=== PATIENT | male | born 1950 | race Caucasian/White ===

== ENCOUNTER 2021-05-28 11:28 | Inpatient (IN) ==
[2021-05-28] MEDS ORDERED: ASPIRIN CHEW 324 MG ONE (11:34)
--- NOTE | 2021-05-28 11:42 | Emergency Department Note ---
History of Present Illness General Chief complaint: Heart Alert History of Present Illness 71-year-old male presents to the ED with a chief complaint of a syncopal episode that occurred around 9:45 AM today. The patient is a diabetic and takes Metformin. He also has history of high blood pressure and takes metoprolol and losartan. The patient states that he felt hungry this morning and was walking to the kitchen to get something to eat. He felt a little weird and then he was on the floor. He lives with his . He apparently had a syncopal episode. Some of the history was obtained from the . The states that she heard a loud noise and came out and found him on the tile floor. He was dazed and a little confused initially. There was no seizure activity. EMS was called. The twelve-lead EKG for EMS initially done showed some peaking T waves in the inferior leads. As the patient was refusing transport, the patient, according to EMS did not look well and seemed ashen diaphoretic. For this reason they state on scene and try to convince him to come to the hospital. He was not havi ng any chest pains or shortness of breath at any point. The patient had a second twelve-lead EKG by EMS about 1 hour after the first that showed inferior wall NM with ST elevations inferiorly and T wave inversions in V1 and V2. The patient then was convinced to come to the hospital for evaluation. Other than the patient feeling "washed out", he has no other complaints. No chest pains, shortness of breath, back pains, arm pains other than some chronic shoulder pain. Denies any pain related to his syncope/fall but did have palpable tenderness to the posterior aspect of his head. Home Medications Medication Instructions Recorded Confirmed Type METOPROLOL SUCCINATE (TOPROL XL) 200 mg PO QAM #0 11/08/11 History VALSARTAN/HCTZ (Diovan Hct 1 tab PO QAM #0 11/08/11 History 160/25MG Tab) Multiple Vitamins W/ Minerals 1 tab PO QAM #0 03/10/16 History (Multi Adult Gummies) Allergies Allergy/AdvReac Type Severity Reaction Status Date / Time No Known Allergies Allergy Unverified 03/20/16 06:36 Past Med/Surg History Medical History (Updated 05/28/21 @ 12:45 by Anuel Weinstein DO) Diabetes type 2, controlled Hypertension Social History Smoking Status: Never smoker Hx Substance Use: No Preferred Language: Belizean Feels Safe at Home: Yes Review of Systems A total of 10 systems reviewed and were otherwise negative Physical Exam Vital Signs Vital Signs - 24 hr 05/28/21 11:12 Temperature 36.5 C Temperature Source Oral Pulse Rate 70 Pulse Rhythm Regular Pulse Strength Normal Respiratory Rate 16 Respiratory Effort / Characteristics Non-Labored Respiratory Depth Normal Blood Pressure 141/92 H Blood Pressure Mean 108 Pulse Oximetry 98 Oxygen Delivery Method Room Air Sepsis Recent Fever Within 48 Hours No Sepsis New/Unexplained Change in Mental Status N/A Sepsis Action Taken by Nursing No Action Required CONSTITUTIONAL/VITAL SIGNS: Reviewed / noted above. GENERAL: Non-toxic in appearance. INTEGUMENTARY: Warm, dry, and [place]. HEAD: Normocephalic with the exception of a hematoma to the occipital area. This is also somewhat tender on exam. No bleeding or lacerations EYES: without scleral icterus or trauma. ENT/OROPHARYNX: clear and moist. LYMPHADENOPATHY/NECK: Is supple without lymphadenopathy or meningismus. RESPIRATORY: Clear to auscultation bilaterally. No increased work of breathing. CARDIOVASCULAR: Regular rate and rhythm. GI/ABDOMEN: Soft and nontender. No organomegaly or pulsatile mass. EXTREMITIES: Warm and well perfused. BACK: No CVA tenderness. NEUROLOGICAL: Intact without focal deficits. PSYCHIATRIC: normal affect. MUSCULOSKELETAL: Normally developed with good muscle tone. TRIAGE NURSING DOCUMENTATION REVIEWED. Course Administered Medications Discontinued Medications Aspirin (Aspirin Chew 324 Mg) Confirm Administered Dose 324 mg .ROUTE .STK-MED ONE Stop: 05/28/21 11:35 Last Admin: 05/28/21 11:37 Dose: 324 mg Documented by: [id number] Heparin Sodium (Porcine) (Heparin Sod (Porcine) 1000 Unit/Ml) 5,000 units IV NOW ONE Stop: 05/28/21 11:46 Last Admin: 05/28/21 11:46 Dose: 5,000 units Documented by: [id number] Cosigned by: [id number] Ticagrelor (Ticagrelor 90 Mg Tab) 180 mg PO NOW ONE Stop: 05/28/21 11:46 Last Admin: 05/28/21 11:46 Dose: 180 mg Documented by: [id number] Critical Care Time Critical Care Time: Yes Total Critical Care Time: 30 I have personally spent 30 minutes of critical care time in the direct management of this patient. This includes bedside care, interpretation of diagnostic studies, and testing, discussion with consultants, patient, and family members, and other required patient management activities. This 30 minutes is in excess of all separately billable procedures. Medical Decision Making Differential Diagnosis The differential that was considered includes acute myocardial infarction, acute coronary syndrome, myocarditis, pericarditis, pericardial effusions /tamponade, esophageal perforation, thoracic aortic dissection, pulmonary embolism, pneumonia, pneumothorax, pancreatitis, shingles, acute cholecystitis, perforated abdominal viscus. Medical Records Attestation: I reviewed the patient's medical records. Home Medications Current Medication List: was personally reviewed by me Laboratory Data Attestation: I reviewed the patient's lab results. Result diagrams: 05/28/21 11:33 05/28/21 11:33 Lab Results 05/28/21 05/28/21 05/28/21 Range/Units 11:33 11:33 11:37 WBC 8.57 (4.8-10.8) K/uL RBC 5.46 (4.7-6.1) M/uL Hgb 16.1 (14.0-18.0) g/dL POC Hgb 17.0 (14.0-18.0) g/dl Hct 49.9 (42-52) % POC Hct 50 (42-52) % MCV 91.4 (80-100) fL MCH 29.5 (25-34) pg MCHC 32.3 (32-36) g/dL RDW Std Deviation 48.5 H (36.4-46.3) fL RDW Coeff of Norberto 14.5 (11.5-14.5) % Plt Count 173 (130-400) K/uL MPV 11.0 H (7.4-10.4) fL Immature Gran % (Auto) 0.2 % Neut % (Auto) 83.1 % Lymph % (Auto) 9.5 % Power % (Auto) 4.6 % Eos % (Auto) 2.2 % Baso % (Auto) 0.4 % Neut # (Auto) 7.13 H (1.4-6.5) K/uL Lymph # (Auto) 0.81 L (1.2-3.4) K/uL Power # (Auto) 0.39 (0.11-0.59) K/uL Eos # (Auto) 0.19 (0-0.5) K/uL Baso # (Auto) 0.03 (0-0.2) K/uL Immature Gran # (Auto) 0.02 (0.00-0.02) K/uL POC Sodium 142 (135-144) mmol/L Sodium 139 (136-145) mmol/L POC Potassium 4.6 (3.3-5.0) mmol/L Potassium 4.6 (3.5-5.1) mmol/L POC Chloride 106 (101-112) mmol/L Chloride 107 (98-107) mmol/L Carbon Dioxide 25 (21-32) mmol/L POC Total CO2 24 (24-31) mmol/L Anion Gap 7 (3-11) POC Anion Gap 17.0 (16-25) mmol/L POC BUN 40 H (7-18) mg/dl BUN 39 H (6-23) mg/dl Creatinine 1.48 H (0.6-1.4) mg/dl POC Creatinine 1.4 H (0.6-1.3) mg/dl Est Cr Clr Drug Dosing 63.1 ml/min Est GFR ( Amer) 54.8 ml/min Est GFR (Non-Af Amer) 47.3 ml/min BUN/Creatinine Ratio 26.4 H (10-20) Glucose 213 H (70-99(Fasting)) mg/dl POC Glucose (other) 207 H (70-99) mg/dl Calcium 9.0 (8.5-10.1) mg/dl POC Ioniz Calcium Italo 1.21 (1.12-1.32) mmol/l Total Bilirubin 0.7 (0.2-1.0) mg/dl AST 23 (13-39) U/L ALT 16 (7-52) U/L Alkaline Phosphatase 70 (34-104) U/L Troponin I 0.98 H* (0-0.04) ng/ml Total Protein 7.1 (6.0-8.3) gm/dl Albumin 4.1 (3.4-5.0) gm/dl Globulin 3.0 (2.5-4.0) gm/dl Albumin/Globulin Ratio 1.4 (0.9-2) Lipase 30 (11-82) U/L SARS-CoV-2, RNA, NAAT (NEGATIVE) 05/28/21 Range/Units 11:38 WBC (4.8-10.8) K/uL RBC (4.7-6.1) M/uL Hgb (14.0-18.0) g/dL POC Hgb (14.0-18.0) g/dl Hct (42-52) % POC Hct (42-52) % MCV (80-100) fL MCH (25-34) pg MCHC (32-36) g/dL RDW Std Deviation (36.4-46.3) fL RDW Coeff of Norberto (11.5-14.5) % Plt Count (130-400) K/uL MPV (7.4-10.4) fL Immature Gran % (Auto) % Neut % (Auto) % Lymph % (Auto) % Power % (Auto) % Eos % (Auto) % Baso % (Auto) % Neut # (Auto) (1.4-6.5) K/uL Lymph # (Auto) (1.2-3.4) K/uL Power # (Auto) (0.11-0.59) K/uL Eos # (Auto) (0-0.5) K/uL Baso # (Auto) (0-0.2) K/uL Immature Gran # (Auto) (0.00-0.02) K/uL POC Sodium (135-144) mmol/L Sodium (136-145) mmol/L POC Potassium (3.3-5.0) mmol/L Potassium (3.5-5.1) mmol/L POC Chloride (101-112) mmol/L Chloride (98-107) mmol/L Carbon Dioxide (21-32) mmol/L POC Total CO2 (24-31) mmol/L Anion Gap (3-11) POC Anion Gap (16-25) mmol/L POC BUN (7-18) mg/dl BUN (6-23) mg/dl Creatinine (0.6-1.4) mg/dl POC Creatinine (0.6-1.3) mg/dl Est Cr Clr Drug Dosing ml/min Est GFR ( Amer) ml/min Est GFR (Non-Af Amer) ml/min BUN/Creatinine Ratio (10-20) Glucose (70-99(Fasting)) mg/dl POC Glucose (other) (70-99) mg/dl Calcium (8.5-10.1) mg/dl POC Ioniz Calcium Italo (1.12-1.32) mmol/l Total Bilirubin (0.2-1.0) mg/dl AST (13-39) U/L ALT (7-52) U/L Alkaline Phosphatase (34-104) U/L Troponin I (0-0.04) ng/ml Total Protein (6.0-8.3) gm/dl Albumin (3.4-5.0) gm/dl Globulin (2.5-4.0) gm/dl Albumin/Globulin Ratio (0.9-2) Lipase (11-82) U/L SARS-CoV-2, RNA, NAAT NEGATIVE (NEGATIVE) Imaging Data Radiologist's Impression: Head CT 05/28/21 11:43 CT head/brain wo con CLINICAL HISTORY: 71 years-old Male with head injury. Acute syncope with head injury TECHNIQUE: Multiple axial CT images of the head were obtained without contrast. A dose lowering technique was utilized adhering to the principles of ALARA. CT DOSE: 614.27 mGy.cm COMPARISON: None. FINDINGS: No acute intracranial hemorrhage, midline shift, intracranial mass, hydrocephalus, territorial ischemia or abnormal extra-axial collection. Mild involutional changes. Mild white matter hypodensities suggest chronic microvascular ischemic disease. No acute calvarial fracture identified. Small contusion of the right parieto- occipital scalp. 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 The paranasal sinuses, mastoid air cells, and middle ear cavities are clear. IMPRESSION: 1. No acute intracranial abnormality or calvarial fracture. 2. Small right parieto-occipital scalp hematoma. 3. Scattered foci of subcutaneous emphysema within the scalp scalp may be iatrogenic from air within the IV catheter versus penetrating trauma. ACT 112: Negative or not required by law. The above report was generated using voice recognition software. It may contain grammatical, syntax or spelling errors. Electronically signed by: Chris Falcon M.D. 05/28/2021 12:04 PM ECG Data Attestation: I personally reviewed and interpreted this ECG as follows: Additional Comments: Twelve-lead EKG: Per my interpretation shows a sinus rhythm at a rate of 70. ST elevations inferiorly with T wave inversions anteriorly consistent with an acute inferior wall NM. Head Trauma GCS Score: 15 MDM Narrative 71-year-old male presents after syncopal episode this morning around 9:45 AM for which she was found on the tile floor by his a little dazed. Initial twelve-lead EKG by EMS showed some peaking of T waves inferiorly but no clear acute NM. Blood sugar was 135 on scene. He does have a history of type 2 diabetes and high blood pressure. A second EKG about an hour after the first on scene showed acute inferior wall NM. The patient did not at any point have any chest pains or shortness of breath. He was transported to the hospital for further evaluation and care. Here his twelve-lead EKG shows an acute inferior wall NM. CBC was unremarkable. CT scan of the brain did not show any intracranial hemorrhage. There is a small hematoma. There is also scattered focus of subcutaneous emphysema within the scalp that is likely iatrogenic. There is no penetrating trauma to the head on exam or history. The chemistry panel shows a BUN of 39 creatinine of 1.48. Glucose is 213. Troponin is elevated at 0.98. Covid test was negative. A heart alert was called about 15 minutes prior to the patient's arrival. The cardiac cath team met the patient in the emergency department. He was not spoken directly to the Musical Instrument Mechanic as a CT scan of the head was indicated due to his hematoma in the back of the head and his trauma. After the CT scan he was taken directly to the Musical Instrument Mechanic. Impression & Plan Acute NM, inferior wall, Syncope, Contusion of head Discharge Plan Visit Data Chief Complaint: Heart Alert ED Provider: Anuel Weinstein Discharge Problem: Acute NM, inferior wall, Syncope, Contusion of head Patient Disposition: Admitted As Inpatient
[2021-05-28 11:45] LABS: Basophils # (auto) 0.03 K/uL (0-0.2); Basophils % (auto) 0.4 %; Eosinophils # (auto) 0.19 K/uL (0-0.5); Eosinophils % (auto) 2.2 %; Hematocrit (blood only) 49.9 % (42-52); Hemoglobin 16.1 g/dL (14.0-18.0); Immature Granulocytes # (auto) 0.02 K/uL (0.00-0.02); Immature Granulocytes % (auto) 0.2 %; Lymphocytes # (auto) 0.81 K/uL (1.2-3.4); Lymphocytes % (auto) 9.5 %; Mean Corpuscular Hemoglobin 29.5 pg (25-34); Mean Corpuscular Hgb Conc 32.3 g/dL (32-36); Mean Corpuscular Volume 91.4 fL (80-100); Monocytes # (auto) 0.39 K/uL (0.11-0.59); Monocytes % (auto) 4.6 %; Neutrophils # (auto) 7.13 K/uL (1.4-6.5); Neutrophils % (auto) 83.1 %; Platelet Count 173 K/uL (130-400); RDW Coefficient of Variation 14.5 % (11.5-14.5); RDW Standard Deviation 48.5 fL (36.4-46.3); Red Blood Count 5.46 M/uL (4.7-6.1); White Blood Count 8.57 K/uL (4.8-10.8)
[2021-05-28] MEDS ORDERED: TICAGRELOR 90 MG TAB PO ONE (11:45)
[2021-05-28] MEDS ORDERED: HEPARIN SOD (PORCINE) 1000 UNIT/ML IV ONE (11:45)
[2021-05-28 11:49] LABS: iSTAT Creatinine 1.4 mg/dl (0.6-1.3); iSTAT Ionized Calcium 1.21 mmol/l (1.12-1.32); iSTAT Potassium 4.6 mmol/L (3.3-5.0)
--- NOTE | 2021-05-28 11:58 | Pre Anesthesia Assessment ---
Date of Service May 28, 2021 Pre Sedation Assessment Vital Signs Temp Pulse Resp BP Pulse Ox 05/28/21 11:12 97.7 F 70 16 141/92 H 98 Cardiovascular RRR, no murmur, no edema Respiratory normal respiratory effort, lungs clear to auscultation Pre-Sedation Airway Assessment Smoking Status: Never smoker Hx Sleep Apnea: No Hx Difficult Intubation: No Short, Thick Neck: No Thyromental Distance: > or= 3.5 Finger Breadths Oral Cavity: + WNL Mallampati Class: III ASA: ASA3 Procedure Planning Contraindications for Sedation: none Current Medications Reviewed: Yes Notes The planned sedation has been discussed with the patient. Informed Consent was obtained. I have identified the patient, determined the appropriateness of sedation and have assessed the patient immediately prior to the procedure. All medicine(s) and interventions are by my order.
--- NOTE | 2021-05-28 12:06 | Cardiology Consultation ---
Date of Consultation May 28, 2021 Assessment & Plan (1) Syncope: Patient with dynamic inferolateral ST elevations on ECG following syncopal episode earlier this morning. He remains chest pain-free but with patient's risk factors and unexplained syncope feel we should proceed with cardiac catheterization. Discussed risks, benefits, alternatives of procedure and patient willing to proceed. Further recommendations pending findings of coronary angiography. History of Present Illness Attending Physician: Uziel Roque MD History of Present Illness 71-year-old man here after syncopal episode and ECG concerning for acute ND. Patient seen emergently in the ED after heart alert activated en route No prior cardiac history. Reports history of type 2 diabetes complicated by peripheral neuropathy and hypertension. No other active medical problems. Feeling normal the preceding few days. This morning woke up feeling fine, eventually walked to kitchen where progressively felt more lightheaded before unwitnessed syncopal spell. Denies any preceding chest pain, palpitations or shortness of breath. No symptoms after awaking. EMS eventually called and on initial ECG had sinus rhythm with no diagnostic ST changes. Subsequent EKG almost an hour later showed inferior ST elevations. Remained chest pain-free. On arrival to ED chest pain-free, hemodynamically stable, heart rate in the 70s. ECG again showed sinus rhythm with ST elevations in 2, 3, aVF as well as V4 through V6. Allergies Allergy/AdvReac Type Severity Reaction Status Date / Time No Known Allergies Allergy Unverified 03/20/16 06:36 Home Medications Medication Instructions Recorded Confirmed Type METOPROLOL SUCCINATE (TOPROL XL) 200 mg PO QAM #0 11/08/11 History VALSARTAN/HCTZ (Diovan Hct 1 tab PO QAM #0 11/08/11 History 160/25MG Tab) Multiple Vitamins W/ Minerals 1 tab PO QAM #0 03/10/16 History (Multi Adult Gummies) Patient History Medical History (Updated 05/28/21 @ 12:45 by Anuel Weinstein DO) Diabetes type 2, controlled Hypertension Social History Smoking Status: Never smoker Hx Substance Use: No Preferred Language: Gambian Feels Safe at Home: Yes Review of Systems Review of Systems: All systems reviewed & are unremarkable except as noted in HPI & below Physical Exam Physical Exam: General: Comfortable HEENT: Sclerae anicteric Lungs: Clear to auscultation bilaterally Cardiac: Regular rate and rhythm Vascular: 2+ radial, DP pulses. Abdomen: Soft, nontender Extremities: Well perfused, no peripheral edema Psych: Alert orient x3, normal affect and mood Results & Data ([facility]) Vital Signs (Past 12 Hours) Vital Signs Temp Pulse Resp BP Pulse Ox 05/28/21 11:12 97.7 F 70 16 141/92 H 98 PG Care Time/CCT Total # of Minutes Spent Total Time Spent with Patient: Total time spent is greater than 50% in coordination of care (as documented) at patient's floor/unit and/or counseling patient: Coding Level of Care Code 72134 Initial Inpt Care Lvl 3 Diagnoses Syncope R55
--- NOTE | 2021-05-28 12:06 | CT Scan Report ---
CT head/brain wo con CLINICAL HISTORY: 71 years-old Male with head injury. Acute syncope with head injury TECHNIQUE: Multiple axial CT images of the head were obtained without contrast. A dose lowering tech nique was utilized adhering to the principles of ALARA. CT DOSE: 614.27 mGy.cm COMPARISON: None. FINDINGS: No acute intracranial hemorrhage, midline shift, intracranial mass, hydrocephalus, territorial ischem ia or abnormal extra-axial collection. Mild involutional changes. Mild white matter hypodensities sug gest chronic microvascular ischemic disease. No acute calvarial fracture identified. Small contusion of the right parieto-occipital scalp. Scatter ed foci of subcutaneous emphysema noted within the frontal and bilateral temporal scalp distributions and right learning designer space. The paranasal sinuses, mastoid air cells, and middle ear cavities are c lear. IMPRESSION: 1. No acute intracranial abnormality or calvarial fracture. 2. Small right parieto-occipital scalp hematoma. 3. Scattered foci of subcutaneous emphysema within the scalp scalp may be iatrogenic from air within the IV catheter versus penetrating trauma. ACT 112: Negative or not required by law. The above report was generated using voice recognition software. It may contain grammatical, syntax o r spelling errors. Electronically signed by: Chris Falcon M.D. 05/28/2021 12:04 PM
[2021-05-28 12:14] LABS: Albumin Globulin Ratio 1.4 (0.9-2); Albumin Level 4.1 gm/dl (3.4-5.0); BUN Creatinine Ratio 26.4 (10-20); Bilirubin,Total 0.7 mg/dl (0.2-1.0); Creatinine Clr Calc Pharmacy 63.1 ml/min; Est GFR (African American) 54.8 ml/min; Est GFR (Non-African American) 47.3 ml/min; Potassium 4.6 mmol/L (3.5-5.1); Total Protein 7.1 gm/dl (6.0-8.3)
[2021-05-28 12:15] LABS: Troponin I 0.98 ng/ml (0-0.04)
[2021-05-28] MEDS ORDERED: ONDANSETRON INJ 2 MG/ML 2 ML VIAL IV PRN (13:00)
[2021-05-28] MEDS ORDERED: ICU PROTOCOL FOR HYPERGLYCEMIA PRN (13:00)
--- NOTE | 2021-05-28 13:17 | Post Anesthesia Assessment ---
Date of Service May 28, 2021 Post Sedation Assessment Vital Signs Temp Pulse Pulse Resp BP BP Pulse Ox 05/28/21 13:05 60 18 119/76 95 05/28/21 12:50 61 18 121/77 95 05/28/21 11:12 97.7 F 70 16 141/92 H 98 Recovery Score Activity: Moves 4 extremities Respiration: Deep Breath/Cough Circulation: +/-20% PreAnes Value Consciousness: Fully Awake Oxygen Saturation: > 92% On Room Air Post Anesthesia Score: 10 Discharge Sedation Level of Care: Fast Track Phase II Post Sedation Plan On clinical assessment, the patient appears to have tolerated the sedation without complications. Patient is recovering as anticipated. Patient will continue to be monitored by nursing and may be discharged when sedation discharge criteria are met per below protocol. Upon Completions of procedure up to 15 minutes continue every 5 minute vital signs and the P.A.R. score; then discharge to a Phase I or Fast Track to Phase II per the following guidelines: * Discharge Patient to appropriate Phase II area if PAR is 8 or greater or return to pre- procedure baseline. The post - procedure orders will be as directed. * If PAR score is less than 8 or not return to pre-procedure baseline then patient will follow Phase I monitoring till PAR is reached for Phase II. The Phase I may be done in procedure room or may call to secure a Phase I area. * If naloxone or flumazenil are used for reversal, hold in Phase I for continued monitoring from when last reversal dose was given for a minimum of 60 minutes or longer pending the nurse and/or physician discretion of patient condition before discharge to Phase II. Please call the Sedation Physician to re-evaluate and complete post-note for discharge to Phase II area. Do NOT discharge from procedure sedation or Phase 1 until post- sedation evaluation note is complete by procedure /sedation MD Sedation Discharge Instructions to be given to the patient at discharge to home.
--- NOTE | 2021-05-28 13:18 | History & Physical Report ---
Date of Service May 28, 2021 Assessment & Plan (1) Acute VT, inferior wall: Plan: Acute inferior STEMI Admitting EKG: NSR. Inferior ST elevation consistent with STEMI Admitting troponin 0 0.98, trended PCI: - 1. Inferolateral STEMI/acute subtotal occlusion of mid RCA 2. Severe non-culprit coronary artery disease -80% diffuse proximal to mid LAD disease. Small distal LAD with 90% stenosis at apex. Small OM2 70% proximal, small to medium OM3 95% proximal. R-PLB2 with 80% proximal stenosis 3. Elevated intracardiac filling pressure 4. Successful PCI of mid to distal RCA with single drug-eluting stent (3.0 x 26 mm [place]; postdilated with 3.5 NC). Metoprolol 25 mg p.o. every 8 hours DAPT, aspirin 81 mg every morning/ticagrelor 90 mg p.o. twice daily Valsartan 80 mg p.o. every morning, hold for USMAN Atorvastatin 80 mg p.o. every morning Covid negative on admission Creatinine 1.48 on admission Potassium 4.6, magnesium pending - TTE pending - Lipid Panel Pending Received 1 dose of IV Lasix for increased LV filling pressures Patient is pending reevaluation of renal function in the morning for potential additional intervention of LAD cardiology following (2) Syncope: Plan: With acute VT, managed as above (3) Contusion of head: Plan: - CT-H: No acute intracranial abnormality or calvarial fracture. Small right parieto-occipital scalp hematoma. Scattered foci of subcutaneous emphysema within the scalp scalp may be iatrogenic from air within the IV catheter versus penetrating trauma. -Clinically without open lesion Follow clinically, no acute intervention (4) Hypertension: Plan: Hypertension Home metoprolol 200 mg p.o. every morning temporarily held Home valsartan/HCTZ 160/25 mg daily held Antihypertensives as above (5) Diabetes type 2, controlled: Plan: Type 2 diabetes mellitus Hemoglobin A1c pending Admitting BSG 207 SSI weight-based: Lantus 12 units twice daily, correction factor 35, carb ratio 11 BSG AC/at bedtime or every 6 hours if n.p.o. Home Metformin held ICU glycemia protocol consult placed Plan: DVT prophylaxis: SCDs Diet: Heart healthy Disposition: Monitoring in ICU as above CODE STATUS: Full code History of Present Illness Primary Care Provider: Clifton Farias MD Eliseo is a 71-year-old male with no prior past medical history, history of type 2 diabetes mellitus, and history of hypertension who was seen in this morning for an episode of syncope and he was found to have a STEMI now status post PCI. Patient had no chest pain at any point, did not have unstable/crescendo angina, and was normal prior to morning of admission. Morning of admission he woke up in bed and had a unwitnessed episode of syncope. On EMS evaluation patient did not have ST changes, repeat EKG in ER showed inferior ST elevations without chest pain. Patient was taken for PCI with intervention as noted below. Discussed with interventional cardiology, recommended for observation in ICU overnight and additional intervention tomorrow renal function permitting. Patient seen at bedside post procedure. He reports he feels well, although notes that he did not have any chest pain or crescendo angina leading to his episode. He had one episode of syncope morning presentation, no prior episodes of syncope. He has had right flank rib pain, and had struck his head and has a "bump "that is sore on the back of his head. Otherwise denies pain. No sh ortness of breath, difficulty breathing, palpitations. Right radial pressure band in place, no pain. Denies extremity pain. Denies nausea, vomiting, diarrhea, constipation. He reports he does have a strong family history of VT. His father had a VT in his 40s, but was a heavy smoker. His brother also had a VT, and ultimately had passed from a VT following a snakebite. Has a history of type 2 diabetes mellitus, initially diagnosed with an A1c of greater than 12 but which was brought down to well-controlled with Metformin monotherapy and dietary changes. Patient denies tobacco abuse. Does have a history of hypertension. Medical History: Reviewed Medications: Reviewed Surgical History: Reviewed Allergies: Reviewed Social History: No tobacco abuse, no alcohol abuse, no recreational drug use. Code Status: Full code. Allergies Allergy/AdvReac Type Severity Reaction Status Date / Time No Known Allergies Allergy Unverified 03/20/16 06:36 Home Medications Medication Instructions Recorded Confirmed Type METOPROLOL SUCCINATE (TOPROL XL) 200 mg PO QAM #0 11/08/11 History VALSARTAN/HCTZ (Diovan Hct 1 tab PO QAM #0 11/08/11 History 160/25MG Tab) Multiple Vitamins W/ Minerals 1 tab PO QAM #0 03/10/16 History (Multi Adult Gummies) Past Med/Surg History Medical History Diabetes type 2, controlled Hypertension Family History (Updated 05/28/21 @ 16:29 by Renny Aldrich MD) Brother Myocardial infarction Father Myocardial infarction, Onset Age: 47 Social History Smoking Status: Never smoker Hx Alcohol Use: No Hx Substance Use: No Preferred Language: Urdu Perforator Operator Required: No Beliefs That Will Affect Care: None Current Living Situation: Spouse Feels Safe at Home: Yes Assistive Devices: Glasses Physical Exam Physical Exam: General: A&Ox3. NAD. Cooperative. Skin: Soft tissue fullness appreciated at posterior scalp, no laceration or crepitus. Mild tenderness to palpation of rib at ~6th rib mid-axillary line, right. HEENT: Atraumatic, normocephalic. Acuity and hearing grossly intact. Pulm: CTAB A&P. -wheezes, -rales, -rhonchi. Symmetrical chest rise. No increase in work of breathing. No respiratory distress. Cardiac: RRR, -mrg. Radial pulses intact and symmetrical. Abdominal: Nontender, nondistended, soft. BS present. Extremities: Right TR band in place on right arm. Capillary refill in fingers intact on right, left radial pulse intact. Rehab Rn strength 5/5 bilaterally and symmetrical. 1+ bilat LE/ankle edema. Ankle dorsiflexion/plantar flexion 5/5. Sensation to soft touch intact in feet bilaterally and symmetrically. Results & Data Results & Data ([facility]) Vital Signs (Past 12 Hours) Vital Signs Temp Pulse Pulse Resp BP BP Pulse Ox 05/28/21 13:05 60 18 119/76 95 05/28/21 12:50 61 18 121/77 95 05/28/21 11:12 36.5 C 70 16 141/92 H 98 PG Care Time/CCT Total # of Minutes Spent Total Time Spent with Patient: Total time spent is greater than 50% in coordination of care (as documented) at patient's floor/unit and/or counseling patient: Coding Level of Care Code 94498 Initial Inpt Care Lvl 3 Diagnoses Acute VT, inferior wall I21.19 Syncope R55 Contusion of head S00.93XA Hypertension I10 Diabetes type 2, controlled E11.9
--- NOTE | 2021-05-28 13:33 | Cardiac Catheterization ---
[facility] Data: Machine Mover Cardiac Status Clinical evaluation leading to the procedure CAD Presenation: STEMI Anginal Classification: CCS IV Heart Failure: No Cardiogenic Shock within 24 Hours: No Cardiac Arrest within 24 Hours: No Imaging Studies Past 6 Months: No Stress Studies Past 6 Months: No Diagnostic Physicians Name: Uziel Roque MD Status: Emergency Closure Device Percutaneous Entry Location: Radial Closure Device: Radial Band Recommendations: PCI without planned CABG PCI Indication: Immediate PCI for STEMI Lesion Segment Name: Mid RCA Culprit Artery: Yes Stenosis Prior to Rx (%): 99 Chronic Total Occlusion: No IVUS: No FFR: No Pre-Procedure LAURITA Flow: 1 Previously Treated Lesion: No Lesion Complexity: Non-High/Non-C Lesion Length (mm): 20 Thrombus Present: Yes Bifurcation Lesion: No Guidewire Across Lesion: Stenosis Post-Procedure (%): 0 Post-Procedure LAURITA Flow: 3 Devices(s) Deployed: Yes Yes Intraprocedure Events Significant Disection: No Perforation: No Cardiac Cath Procedure Full Procedure Date May 28, 2021 Pre-Procedure Diagnosis Pre-Procedure Diagnosis: STEMI AUC Score AUC Score: 9 Post-Procedure Diagnosis Post-Procedure Diagnosis: Severe CAD, Successful PCI and Elevated Intracardiac Pressures Procedure(s) Performed Procedure(s) Performed: Coronary Angiography, Left Heart Cath and Drug Eluting Stent Clinical Transplant Coordinator Uziel Roque MD Lawn Mower Mechanic(s) [place] Estimated Blood Loss Estimated Blood Loss: 15 Medication(s) Medication(s): Fentanyl, Heparin, Lidocaine 1%, Nicardipine and Versed Medication(s): Ticagrelor Summary of Findings Indication: Syncope with postevent ECG showing new inferolateral ST elevations. Access: 6 Fr right radial artery Catheters: [place], JR4 guide, pigtail Findings: LM -normal caliber, no significant disease LAD -medium caliber, diffuse up to 80% proximal to mid disease extending across takeoff of medium D1. Distal vessel small with 90% stenosis at the apex. Circumflex -medium caliber, proximal luminal irregularities, very small distal AV groove circumflex without disease. Small OM 2 with 70% proximal stenosis, small OM 3 with 95% proximal stenosis. RCA -dominant, medium caliber, acute subtotal latemid RCA occlusion. 80% proximal stenosis in medium terminal RPLB2. LVEDP -34 -- PCI -- Antithrombotic therapy: Heparin, ticagrelor Procedure: RCA cannulated with JR4 guide Sports Umpire 50 wire passed across lesion into distal vessel Mid to distal lesion predilated with 2.5 compliant balloon Dilated lesion stented with 3.0 x 26 mm [place] drug-eluting stent extending just to bifurcation with PDA. Stent post-dilated with 3.5 noncompliant balloon IC vasodilators administered for spasm Post procedure LAURITA 3 flow, stent well expanded with minimal residual stenosis and no apparent cardiac complications. Arterial Closure: TR band Summary: 1. Inferolateral STEMI/acute subtotal occlusion of mid RCA 2. Severe non-culprit coronary artery disease -80% diffuse proximal to mid LAD disease. Small distal LAD with 90% stenosis at apex. Small OM2 70% proximal, small to medium OM3 95% proximal. R-PLB2 with 80% proximal stenosis 3. Elevated intracardiac filling pressure 4. Successful PCI of mid to distal RCA with single drug-eluting stent (3.0 x 26 mm [place]; postdilated with 3.5 NC). Recommendations: Admit to ICU for continued monitoring Loaded with ticagrelor 180 mg in ED Continue dual-antiplatelet therapy for at least 1 year. Trend troponins until peak, Check Echo With significantly elevated LVEDP post procedure given 20 IV Lasix in Machine Mover Resume beta-rodriguez today, ARB as BP/renal function allows High-dose statin Consult cardiac Rehab Plan for staged PCI of LAD during this admission. Medical management of OM disease, apical LAD, RPLB2. Hemodynamics Rest Ao:: 123/67/87 Final Ao: 108/68/86 LV: 104/36 Recommendations Recommendations: PCI without planned CABG Specimens Specimens: None Radiation Exposure (mGy) 1993 Contrast (mls) 90 Drains Drains: None Anesthesia Moderate 7177-4104 Procedural Complication(s) None Disposition ICU I attest to the content of the Intraoperative Record and any orders documented therein. Any exceptions are noted below. [facility] Card Cath Procedure Codes Cardiac Catheterization Procedure 1: Cardiovascular Cath Procedures: 04258 Coronaries and LHC (+/-LV) Moderate Sedation Procedure 1: Sedation/Anesthesia: 25844 Mod Sedation by the same physician;Init15 Min Child Age 5 & Up Procedure 2: Sedation/Anesthesia: 48475 Mod Sedation by the same physician; Ea [id number] Minutes Stenting Procedure 1: Cardiovascular Stent Procedures: 14142 Perc transluminal revascularization of acute sub/total occl, aMI PG Care Time/CCT Total # of Minutes Spent Total Time Spent with Patient: Total time spent is greater than 50% in coordination of care (as documented) at patient's floor/unit and/or counseling patient:
[2021-05-28] MEDS ORDERED: CARBOHYDRATES FOR HYPOGLYCEMIA PO PRN (13:44)
[2021-05-28] MEDS ORDERED: GLUCOSE 10 TABS/TUBE PO PRN (13:44)
[2021-05-28] MEDS ORDERED: GLUCAGON FOR INJ 1 MG VIAL SQ PRN (13:44)
[2021-05-28] MEDS ORDERED: DEXTROSE 50% 50 ML SYRINGE IV PRN (13:44)
[2021-05-28] MEDS ORDERED: GLUCOSE 40% GEL 15 GM TUBE PO PRN (13:44)
--- NOTE | 2021-05-28 14:14 | XRay Report ---
XR chest 1V portable CLINICAL HISTORY: Chest Pain. COMPARISON STUDY: No previous studies for comparison. TECHNIQUE: 1 view of the chest FINDINGS: Single frontal view of the chest demonstrates the heart size to be mildly enlarged. The lungs are annabel ar of alveolar opacities. There is no evidence for pleural effusion. There is no evidence for vascula r congestion. There is no acute osseous pathology. IMPRESSION: 1. No acute cardiopulmonary disease. 2. Mild cardiomegaly. ACT 112: Negative or not required by law. Electronically signed by: Sher Singletary M.D. 05/28/2021 2:13 PM
[2021-05-28] MEDS: METOPROLOL TARTRATE 25 MG TAB PO SCH ×2 (14:21→21:34)
[2021-05-28] MEDS: ATORVASTATIN 40 MG TAB PO SCH (14:24)
--- NOTE | 2021-05-28 15:35 | Critical Care Consultation ---
Date of Consultation May 28, 2021 Assessment & Plan (1) Acute CA, inferior wall: (2) Syncope: (3) Hypertension: (4) Diabetes type 2, controlled: Eliseo is a 71-year-old male with a past medical history of controlled type 2 diabetes and hypertension found to have an inferior STEMI now admitted to the ICU status post PCI of the right coronary artery. Patient tolerated procedure well and is currently clinically stable. Cardio -Status post PCI of RCA for treatment of STEMI, management per cardiology. Likely additional intervention tomorrow. -Currently on metoprolol, aspirin, atorvastatin. Loaded with ticagrelor in ED. -Continuous cardiac monitoring -Trend troponin until peak -Echo pending -Elevated LVEDP at 34, withhold IV fluids for now, urinary output goal of 50 cc/h Pulmonology -Continuous pulse ox Endocrine -ICU glycemic protocol, hold Metformin -Carb consistent diet -A1c pending Renal/electrolytes -Sodium equals 139, potassium equals 4.6, creatinine 1.4 -Urinary output goal of 50 cc/h, if below consider IV fluid at 60 to 80 cc/h for nephro protection -Magnesium and phosphorus pending -Replete electrolytes as needed GI/FEN -Carb consistent diet Heme -Monitor CBC daily ID -No problems DVT prophylaxis -SCDs Disposition -Continue monitoring in the ICU, additional intervention planned for tomorrow by Dr. Roque which will require continued monitoring status post. CODE STATUS: Full Supervising Physician Co-Signing Physician Notes Patient seen and examined. EMR reviewed. Images were independently reviewed. Discussed with bedside nurse and with family practice resident. Agree with assessment plan as noted above. Patient's mechanism of injury is suggestive of potential ventricular arrhythmia given his ischemia. Await echocardiogram. Continue dual antiplatelet agents. Await hemoglobin A1c. Electrolyte replacement protocol and ICU glycemic protocol. We will follow the patient's kidney function with unknown baseline. Ideally would like to provide IV fluids but given his elevated EDP, would be reluctant to administer large amounts of IV fluids given potential pulmonary venous congestion. Will follow creatinine in the morning and ascertain in consul tation with cardiology when the next appropriate staged percutaneous intervention should be undertaken. The above recommendations and plan were discussed with the patient and family at bedside. Questions were answered to the best of my ability. They expressed understanding and are in agreement with plan as outlined. History of Present Illness Attending Physician: Renny Aldrich MD History of Present Illness Patient is a 71-year-old male with past medical history of controlled type 2 diabetes and hypertension presenting to the hospital due to syncopal episode that happened at his home this morning. Patient reports that he woke up this morning around 9 AM went to get breakfast at about 9:45 AM and collapsed on his way to the kitchen. At that time his had called EMS services who transported him to the ED for work-up. At that time he had an EKG that had reve aled ST elevations in the inferior leads as well as a head CT that showed no abnormalities. At that time, cardiology was consulted and he was taken to the [facility] where a 100% occlusion of the RCA, 80% diffuse proximal to mid LAD disease, Small distal LAD with 90% stenosis at apex, Small OM2 70% proximal, small to medium OM3 95% proximal, and R-PLB2 with 80% proximal stenosis. The RCA was stented for which the patient tolerated well and was then admitted to the ICU for continued management. Patient states that he is feeling really well at this time and actually feels better than he has in years. Patient was able to tolerate eating chicken shortly after PCI. Denies any chest pain, shortness of breath, headache, or referred pain to the arm or neck. No other complaints at this time Allergies Allergy/AdvReac Type Severity Reaction Status Date / Time No Known Allergies Allergy Unverified 03/20/16 06:36 Home Medications Medication Instructions Recorded Confirmed Type METOPROLOL SUCCINATE (TOPROL XL) 200 mg PO QAM #0 11/08/11 History VALSARTAN/HCTZ (Diovan Hct 1 tab PO QAM #0 11/08/11 History 160/25MG Tab) Multiple Vitamins W/ Minerals 1 tab PO QAM #0 03/10/16 History (Multi Adult Gummies) Patient History Medical History Diabetes type 2, controlled Hypertension Family History (Updated 05/28/21 @ 16:29 by Renny Aldrich MD) Brother Myocardial infarction Father Myocardial infarction, Onset Age: 47 Social History Smoking Status: Never smoker Hx Alcohol Use: No Hx Substance Use: No Preferred Language: Arabic Medical Radiation Therapist Required: No Beliefs That Will Affect Care: None Current Living Situation: Spouse Feels Safe at Home: Yes Assistive Devices: Glasses Review of Systems Review of Systems: All systems reviewed & are unremarkable except as noted in HPI & below Physical Exam Constitutional: well developed, well nourished and + obese; no acute distress Eyes: PERRL, conjunctivae normal, anicteric sclerae Neck: trachea midline, no thyromegaly Respiratory: normal respiratory effort, lungs clear to auscultation Cardiovascular: Rate/Rhythm: regular rate and regular rhythm Heart Sounds: normal S1 and normal S2 Vessels: no JVD Extremities: + edema (Trace pitting edema of the lower extremities bilaterally) Gastrointestinal (Abdomen): normal bowel sounds, soft, nontender, no hepatosplenomegaly Musculoskeletal: no cyanosis or clubbing, extremities motor strength 5/5 Skin: no rashes, warm and dry Neurologic: moves all extremities and awake Psychiatric: A+Ox3, euthymic affect Results & Data Results & Data ([facility]) Vital Signs (Past 12 Hours) Vital Signs Temp Pulse Pulse Resp BP BP Pulse Ox 05/28/21 15:00 65 19 95 05/28/21 14:30 67 21 108/73 93 05/28/21 14:16 66 20 113/72 95 05/28/21 14:00 68 21 106/66 95 05/28/21 13:45 68 22 107/71 94 05/28/21 13:30 67 20 118/71 94 05/28/21 13:05 60 18 119/76 95 05/28/21 12:50 61 18 121/77 95 05/28/21 11:12 36.5 C 70 16 141/92 H 98 Resident Activity Tracking Resident Involvement: Resident Care Provided Care Provided: Adult Hospital Medicine
[2021-05-28 15:57] LABS: Magnesium 2.2 mg/dl (1.7-2.4); Phosphorus 3.4 mg/dl (2.5-4.9)
--- NOTE | 2021-05-28 16:47 | Billing Data ---
Date of Service May 28, 2021 Coding Level of Care Code 77052 Inpt Consult Level 4
[2021-05-28] MEDS: INSULIN ASPART PER UNIT SC SCH ×2 (17:00→21:33)
--- NOTE | 2021-05-28 17:12 | XCELERA ---
[id number]
--- NOTE | 2021-05-28 20:58 | Communication Note ---
Date of Service: May 28, 2021 [facility] Patient PCP is Dr. Farias.
[2021-05-28] MEDS: INSULIN GLARGINE SOLOSTAR 100 UNITS/ML 3 ML PEN SC SCH (21:33)
[2021-05-28] MEDS: TICAGRELOR 90 MG TAB PO SCH (21:34)
[2021-05-29] MEDS: ACETAMINOPHEN 325 MG TAB PO PRN ×2 (00:42→20:57)
[2021-05-29] MEDS: METOPROLOL TARTRATE 25 MG TAB PO SCH ×3 (05:11→20:49)
[2021-05-29 05:15] LABS: Basophils # (auto) 0.02 K/uL (0-0.2); Basophils % (auto) 0.2 %; Eosinophils # (auto) 0.09 K/uL (0-0.5); Eosinophils % (auto) 0.9 %; Hematocrit (blood only) 44.7 % (42-52); Hemoglobin 14.7 g/dL (14.0-18.0); Immature Granulocytes # (auto) 0.02 K/uL (0.00-0.02); Immature Granulocytes % (auto) 0.2 %; Lymphocytes # (auto) 0.98 K/uL (1.2-3.4); Lymphocytes % (auto) 9.7 %; Mean Corpuscular Hemoglobin 29.3 pg (25-34); Mean Corpuscular Hgb Conc 32.9 g/dL (32-36); Mean Corpuscular Volume 89.2 fL (80-100); Mean Platelet Volume 11.2 fL (7.4-10.4); Monocytes # (auto) 0.75 K/uL (0.11-0.59); Monocytes % (auto) 7.4 %; Neutrophils # (auto) 8.24 K/uL (1.4-6.5); Neutrophils % (auto) 81.6 %; Platelet Count 170 K/uL (130-400); RDW Coefficient of Variation 14.4 % (11.5-14.5); RDW Standard Deviation 46.6 fL (36.4-46.3); Red Blood Count 5.01 M/uL (4.7-6.1)
[2021-05-29 05:33] LABS: BUN Creatinine Ratio 29.8 (10-20); Calcium 8.7 mg/dl (8.5-10.1); Creatinine Clr Calc Pharmacy 52.5 ml/min; Est GFR (African American) 43.8 ml/min; Est GFR (Non-African American) 37.8 ml/min; Potassium 4.6 mmol/L (3.5-5.1)
[2021-05-29 07:15] LABS: Estimated Average Glucose 140 mg/dl; Hemoglobin A1C 6.5 % (4.5-5.6)
[2021-05-29] MEDS: ASPIRIN 81 MG ECTAB PO SCH (08:21)
[2021-05-29] MEDS: INSULIN ASPART PER UNIT SC SCH ×4 (08:21→20:49)
[2021-05-29] MEDS: ATORVASTATIN 40 MG TAB PO SCH (08:22)
[2021-05-29] MEDS: INSULIN GLARGINE SOLOSTAR 100 UNITS/ML 3 ML PEN SC SCH (08:22)
[2021-05-29] MEDS: TICAGRELOR 90 MG TAB PO SCH ×2 (08:23→20:48)
[2021-05-29] MEDS ORDERED: VALSARTAN 80 MG TAB PO SCH (09:00)
--- NOTE | 2021-05-29 09:19 | Critical Care Progress Note ---
Date of Service May 29, 2021 Assessment & Plan (1) Acute PR, inferior wall: (2) Syncope: (3) Syncope: (4) Hypertension: (5) Diabetes type 2, controlled: Plan: Eliseo is a 71-year-old male with a past medical history of controlled type 2 diabetes and hypertension found to have an inferior STEMI currently admitted to the ICU status post PCI of the right coronary artery. Patient tolerated procedure well and is currently clinically stable. Cardio -Status post PCI of RCA for treatment of STEMI POD1, management per cardiology. -Currently on metoprolol, aspirin, atorvastatin. Loaded with ticagrelor in ED. -Continuous cardiac monitoring -Trend troponin until peak -Echo results as follows: -Mild dilation of the left ventricle -Ejection fraction of 40 to 45% -Mild global hypokinesis of the left ventricle -Mild concentric left ventricular hypertrophy -Moderate dilation of the right ventricle -Moderate reduction of the right ventricular systolic function -Moderate mitral and tricuspid regurgitation -Elevated systolic pressure of the right ventricle at 40 to 50 mmHg -Elevated LVEDP at 34, withhold IV fluids for now, urinary output goal of 50 cc/h Pulmonology -Continuous pulse ox Endocrine -ICU glycemic protocol, hold Metformin -Carb consistent diet, currently n.p.o. -A1c 6.5 Renal/electrolytes -Sodium equals 134, potassium equals 4.6, creatinine 1.78 -Urinary output goal of 50 cc/h -P.o. hydration -Magnesium and phosphorus WNL -Replete electrolytes as needed GI/FEN -Carb consistent diet if no procedure, n.p.o. if procedure planned, per cardiology Heme -Monitor CBC daily ID -No problems DVT prophylaxis -SCDs Disposition -No arrhythmias noted overnight, at this time downgrade to telemetry is appropriate. CODE STATUS: Full Admission and Anticipated Discharge Date Admission Date: May 28, 2021 Supervising Physician Co-Signing Physician Notes Patient seen and examined. EMR reviewed. Discussed on multidisciplinary rou nds. Agree with assessment plan as noted by family practice resident. Discussed with cardiology at bedside as well. The patient is pain-free. He is demonstrated no evidence of arrhythmia. Echo findings were reviewed and noted. Defer LifeVest/antiarrhythmics to cardiology. Patient's creatinine is slightly worse today. Will defer to cardiology timing of sequential PCI intervention. Patient stable to transfer out of the intensive care unit at this point time. Ultimate disposition per cardiology and primary service. Critical care will sign off at this point time. Feel free to contact us if we can be of additional assistance Subjective Patient seen at bedside this morning. No acute events overnight reported. Patient states that he still feels well has had no chest pain, shortness of breath, arm pain, or headaches. Patient questioning as to whether or not he is allowed to eat. He was explained at this time that we are to hold off meals and we know for sure when the next cardiac intervention will be. Patient is understanding. Otherwise has no other complaints at this time. Review of Systems Review of Systems: All systems reviewed & are unremarkable except as noted in HPI & below Physical Exam Constitutional: well developed, well nourished and + obese; no acute distress Eyes: PERRL, conjunctivae normal, anicteric sclerae Neck: trachea midline, no thyromegaly Respiratory: normal respiratory effort, lungs clear to auscultation Cardiovascular: Rate/Rhythm: regular rate and regular rhythm Heart Sounds: normal S1 and normal S2 Vessels: no JVD Extremities: + edema (Trace pitting edema of the lower extremities bilaterally) Gastrointestinal (Abdomen): normal bowel sounds, soft, nontender, no hepatosplenomegaly Musculoskeletal: no cyanosis or clubbing, extremities motor strength 5/5 Skin: no rashes, warm and dry Neurologic: moves all extremities and awake Psychiatric: A+Ox3, euthymic affect Results & Data Results & Data ([facility]) Vital Signs (Past 12 Hours) Vital Signs Temp Pulse Resp BP Pulse Ox 05/29/21 06:00 69 17 100/75 96 05/29/21 05:30 62 17 95 05/29/21 05:00 67 17 108/73 94 05/29/21 04:30 57 L 21 93 05/29/21 04:00 37 C 61 20 96/65 L 95 05/29/21 03:30 64 15 96 05/29/21 03:00 68 24 109/75 96 05/29/21 02:30 63 20 94 05/29/21 02:00 67 20 94/55 L 94 05/29/21 01:30 61 22 93 05/29/21 01:00 64 23 102/69 96 05/29/21 00:30 65 22 94 05/29/21 00:00 65 24 120/80 95 05/28/21 23:30 65 22 96 05/28/21 23:00 66 22 109/71 91 05/28/21 22:30 66 14 94 05/28/21 22:00 66 21 99/64 L 93 05/28/21 21:30 67 23 93 Laboratory Results 05/29/21 05:05 05/29/21 05:05 Diagnostic Findings No new imaging Resident Activity Tracking Resident Involvement: Resident Care Provided Care Provided: Adult Hospital Medicine
--- NOTE | 2021-05-29 10:43 | Cardiology Consultation ---
Date of Consultation May 29, 2021 Assessment & Plan (1) Acute MT, inferior wall: (2) Syncope: (3) USMAN (acute kidney injury): 71-year-old male with past medical history of type 2 diabetes mellitus, hypertension, dyslipidemia presented with a madi syncopal episode, found to have an acute inferolateral ST segment elevation myocardial infarction with right ventricular involvement based on echocardiogram findings. Patient underwent drug-eluting stent to the culprit right coronary artery stenosis 05/28/2021. Repeat EKG this morning reveals mild residual inferior ST elevation over Q waves, significant troponin I elevation, no additional angina, no arrhythmias on telemetry overnight. Case discussed with Dr Roque of interventional cardiology. Given increase in creatinine to 1.78 mg /dl, will cancel staged PCI of LAD today, and advance diet. NPO after midnight for catheterization 05/30/21 pending reassessment of renal function. Patient with acute worsening renal insufficiency however left ventricular end- diastolic pressure was elevated 30 mmHg yesterday, and I favor proceeding without diuretics or IV fluid at present. Continue medication therapy with aspirin, Brilinta, Toprol tartrate, atorvastatin. Valsartan on hold. History of Present Illness Attending Physician: Nika Oakes MD History of Present Illness Mr Aj is a 71-year-old male seen in general cardiology consultation per the request of Dr. Lee in follow-up care of patient's presentation with an inferolateral ST segment elevation myocardial infarction yesterday. The patient's primary care provider is Dr. Farias of [facility]. Patient describes being in his normal state of health yesterday when he felt that maybe his blood sugar was low. He walked to the kitchen for food and was witnessed to have a madi syncopal episode. The next thing he knew a family member was telling him that the paramedics were on the way. Initial EKG performed upon arrival to the emergency room 05/28/2021 at [address] segment elevation with reciprocal ST depression in leads I, aVL, and V2. Repeat tracing shortly thereafter at [address] elevation in the inferior leads, with improvement in the lateral precordial leads. The patient was assessed in the emergency department and underwent emergent cardiac catheterization performed by Dr. Roque yesterday receiving PCI, drug- eluting stent of the mid to distal RCA which have been found to have a culprit subtotal late-mid occlusion. The patient tolerated the procedure well, and was transferred to the intensive care unit. Overnight no arrhythmia was observed, and sinus rhythm in the 60s noted. He was found to have severe residual nonculprit disease for which staged intervention of the LAD is tentatively planned. At the time my assessment in ICU room 102. Patient was comfortable in the bedside chair. He notes no chest discomfort, and prior to presenting yesterday he notes only mild shortness of breath with activity such as climbing stairs. Allergies Allergy/AdvReac Type Severity Reaction Status Date / Time No Known Allergies Allergy Unverified 03/20/16 06:36 Home Medications Medication Instructions Recorded Confirmed Type METOPROLOL SUCCINATE (TOPROL XL) 200 mg PO QAM #0 11/08/11 History VALSARTAN/HCTZ (Diovan Hct 1 tab PO QAM #0 11/08/11 History 160/25MG Tab) Multiple Vitamins W/ Minerals 1 tab PO QAM #0 03/10/16 History (Multi Adult Gummies) Patient History Medical History Diabetes type 2, controlled Hypertension Family History Brother Myocardial infarction Father Myocardial infarction, Onset Age: 47 Social History Smoking Status: Never smoker Hx Alcohol Use: No Hx Substance Use: No Preferred Language: Telugu Accounts Officer Required: No Beliefs That Will Affect Care: None Current Living Situation: Spouse Feels Safe at Home: Yes Assistive Devices: Glasses Review of Systems Review of Systems: All systems reviewed & are unremarkable except as noted in HPI & below Physical Exam Constitutional: WD/WN, vitals as above Respiratory: normal respiratory effort, lungs clear to auscultation Cardiovascular: RRR, no murmur, no edema Neurologic: PERRL, EOMI, accommodation nl, no face palsy, no dysarthria Results & Data ([facility]) Vital Signs (Past 12 Hours) Vital Signs Temp Pulse Resp BP Pulse Ox 05/29/21 10:00 62 14 105/72 95 05/29/21 09:00 61 19 115/70 93 05/29/21 08:00 63 20 119/81 97 05/29/21 07:00 65 13 109/73 96 05/29/21 06:00 69 17 100/75 96 05/29/21 05:30 62 17 95 05/29/21 05:00 67 17 108/73 94 05/29/21 04:30 57 L 21 93 05/29/21 04:00 37 C 61 20 96/65 L 95 05/29/21 03:30 64 15 96 05/29/21 03:00 68 24 109/75 96 05/29/21 02:30 63 20 94 05/29/21 02:00 67 20 94/55 L 94 05/29/21 01:30 61 22 93 05/29/21 01:00 64 23 102/69 96 05/29/21 00:30 65 22 94 05/29/21 00:00 65 24 120/80 95 05/28/21 23:30 65 22 96 05/28/21 23:00 66 22 109/71 91 Laboratory Results Cardiac Enzymes 05/28/21 05/28/21 05/29/21 Range/Units 11:33 18:54 00:58 AST 23 (13-39) U/L Troponin I 0.98 H* 67.36 H* > 73.00 H* (0-0.04) ng/ml 05/29/21 Range/Units 06:46 AST (13-39) U/L Troponin I > 73.00 H* (0-0.04) ng/ml Lipids 05/29/21 Range/Units 05:05 Triglycerides 106 (0-150) mg/dl Cholesterol 103 (0-200) mg/dl HDL Cholesterol 26 mg/dl Cholesterol/HDL Ratio 4.0 (0-5) CBC 05/28/21 05/29/21 Range/Units 11:33 05:05 WBC 8.57 10.10 (4.8-10.8) K/uL RBC 5.46 5.01 (4.7-6.1) M/uL Hgb 16.1 14.7 (14.0-18.0) g/dL Hct 49.9 44.7 (42-52) % Plt Count 173 170 (130-400) K/uL Neut # (Auto) 7.13 H 8.24 H (1.4-6.5) K/uL Lymph # (Auto) 0.81 L 0.98 L (1.2-3.4) K/uL [place] # (Auto) 0.39 0.75 H (0.11-0.59) K/uL Eos # (Auto) 0.19 0.09 (0-0.5) K/uL Baso # (Auto) 0.03 0.02 (0-0.2) K/uL Comprehensive Metabolic Panel 05/28/21 05/29/21 Range/Units 11:33 05:05 Sodium 139 134 L (136-145) mmol/L Potassium 4.6 4.6 (3.5-5.1) mmol/L Chloride 107 106 (98-107) mmol/L Carbon Dioxide 25 21 (21-32) mmol/L BUN 39 H 53 H (6-23) mg/dl Creatinine 1.48 H 1.78 H D (0.6-1.4) mg/dl Glucose 213 H 160 H (70-99(Fasting)) mg/dl Calcium 9.0 8.7 (8.5-10.1) mg/dl AST 23 (13-39) U/L ALT 16 (7-52) U/L Alkaline Phosphatase 70 (34-104) U/L Total Protein 7.1 (6.0-8.3) gm/dl Albumin 4.1 (3.4-5.0) gm/dl Diagnostic Findings Repeat EKG performed 05/29/2020 8:35 AM and reviewed independently: Normal sinus rhythm 62 bpm, inferior infarct pattern with mild residual ST segment elevation over Q waves, lateral T wave inversions, consistent with a vault inferolateral infarct. Compared to the previous tracings performed yesterday, the degree of ST elevation in the inferior lateral leads has improved. Transthoracic echocardiogram performed 05/28/2021: Mild global hypokinesis of the left ventricle with mild concentric left ventricular hypertrophy, LVEF 40-45%. Moderate right ventricular chamber dilatation and moderate RV systolic dysfunction noted, moderate mitral regurgitation, moderate tricuspid regurgitation, right ventricular systolic pressure estimated be 40 to 50 mmHg. Summary of Diagnostic cardiac catheterization report, 05/28/21: LM -normal caliber, no significant disease LAD -medium caliber, diffuse up to 80% proximal to mid disease extending across takeoff of medium D1. Distal vessel small with 90% stenosis at the apex. Circumflex -medium caliber, proximal luminal irregularities, very small distal AV groove circumflex without disease. Small OM 2 with 70% proximal stenosis, small OM 3 with 95% proximal stenosis. RCA -dominant, medium caliber, acute subtotal latemid RCA occlusion. 80% proximal stenosis in medium terminal RPLB2. LVEDP -34
--- NOTE | 2021-05-29 12:22 | Billing Data ---
Date of Service May 29, 2021 Coding Level of Care Code 25992 Subseq Hosp Care Lvl 2
--- NOTE | 2021-05-29 13:52 | Electrocardiogram Report ---
Test Reason : Blood Pressure : / mmHG Vent. Rate : 062 BPM Atrial Rate : 062 BPM P-R Int : 192 ms QRS Dur : 094 ms QT Int : 430 ms P-R-T Axes : 046 -31 105 degrees QTc Int : 436 ms Normal sinus rhythm Possible Left atrial enlargement Left axis deviation Pulmonary disease pattern Inferior infarct Acute Abnormal ECG No previous ECGs available Confirmed by Iron Chavez ([id number]) on 05/29/2021 1:51:53 PM Referred By: REFERRED SELF Confirmed By:Iron Chavez
--- NOTE | 2021-05-29 13:53 | Electrocardiogram Report ---
Test Reason : Blood Pressure : / mmHG Vent. Rate : 061 BPM Atrial Rate : 061 BPM P-R Int : 200 ms QRS Dur : 092 ms QT Int : 422 ms P-R-T Axes : 057 109 108 degrees QTc Int : 424 ms Normal sinus rhythm Possible Left atrial enlargement Rightward axis Septal infarct (cited on or before 28-MAY-2021) Inferior injury pattern ACUTE UT / STEMI Consider right ventricular involvement in acute inferior infarct Abnormal ECG When compared with ECG of 28-MAY-2021 11:34, No significant change Confirmed by Iron Chavez ([id number]) on 05/29/2021 1:53:29 PM Referred By: REFERRED SELF Confirmed By:Iron Chavez
--- NOTE | 2021-05-29 14:21 | Hospitalist Progress Note ---
Date of Service May 29, 2021 Assessment & Plan (1) Acute DC, inferior wall: (2) Syncope: Plan: 71-year-old man with history of DM type II, hypertension, dyslipidemia who presented with syncopal episode and found to have acute inferolateral STEMI. Underwent cardiac catheterization with PCI to RCA on 05/28/2021. Patient currently hemodynamically stable. Plan for staged PCI. Will be n.p.o. past midnight for possible PCI of LAD tomorrow, dependent on renal function. Currently on aspirin, Brilinta and atorvastatin. Echocardiogram reviewed. EF is 40 to 45% with mild global hypokinesis of the left ventricle, moderately dilated right ventricle with moderately reduced right ventricular systolic pressure, moderate MR and TR. RVSP of 40 to 50 mmHg (3) USMAN (acute kidney injury): Plan: Based on review of outpatient labs. Patient appeared to have USMAN on CKD 3. Worsening renal function from creatinine of 1.48 on admission to 1.78 today. This may be related to contrast from cardiac catheterization. Hold valsartan. Avoid nephrotoxins. Avoid diuretics. Monitor renal function and reassess in the morning. (4) Diabetes type 2, controlled: Plan: Hemoglobin A1c 6.5. Continue carbohydrate controlled diet. Maintain glycemic control with insulin subacute per protocol while inpatient. (5) Hypertension: Plan: Blood pressure currently controlled. Valsartan on hold as stated above Admission and Anticipated Discharge Date Admission Date: May 28, 2021 Subjective Patient seen and examined. Denies any chest pain, shortness of breath, palpitations, dizziness Denies any cough Denies any nausea, abdominal pain, diarrhea Denies dysuria, frequency or urgency Physical Exam Constitutional: + well hydrated; no acute distress Eyes: PERRL, conjunctivae normal, anicteric sclerae ENMT: external ear and nose normal, oropharynx normal Respiratory: normal respiratory effort, lungs clear to auscultation Cardiovascular: Rate/Rhythm: regular rate and regular rhythm S1-S2 Gastrointestinal (Abdomen): normal bowel sounds, soft, nontender, no hepatosplenomegaly Musculoskeletal: Pedal edema Neurologic: PERRL, EOMI, accommodation nl, no face palsy, no dysarthria Psychiatric: A+Ox3, euthymic affect Results & Data Results & Data ([facility]) Vital Signs (Past 12 Hours) Vital Signs Temp Pulse Resp BP Pulse Ox 05/29/21 11:00 63 21 112/70 93 05/29/21 10:00 62 14 105/72 95 05/29/21 09:00 61 19 115/70 93 05/29/21 08:00 63 20 119/81 97 05/29/21 07:00 65 13 109/73 96 05/29/21 06:00 69 17 100/75 96 05/29/21 05:30 62 17 95 05/29/21 05:00 67 17 108/73 94 05/29/21 04:30 57 L 21 93 05/29/21 04:00 37 C 61 20 96/65 L 95 05/29/21 03:30 64 15 96 05/29/21 03:00 68 24 109/75 96 05/29/21 02:30 63 20 94 Laboratory Results Abnormal lab results 05/28/21 05/28/21 05/28/21 Range/Units 16:15 18:54 20:08 RDW Std Deviation (36.4-46.3) fL MPV (7.4-10.4) fL Neut # (Auto) (1.4-6.5) K/uL Lymph # (Auto) (1.2-3.4) K/uL [place] # (Auto) (0.11-0.59) K/uL Sodium (136-145) mmol/L BUN (6-23) mg/dl Creatinine (0.6-1.4) mg/dl BUN/Creatinine Ratio (10-20) Glucose (70-99(Fasting)) mg/dl POC Glucose 196 H 147 H (70-99) mg/dl Hemoglobin A1c (4.5-5.6) % Troponin I 67.36 H* (0-0.04) ng/ml 05/29/21 05/29/21 05/29/21 Range/Units 00:58 05:05 05:05 RDW Std Deviation 46.6 H (36.4-46.3) fL MPV 11.2 H (7.4-10.4) fL Neut # (Auto) 8.24 H (1.4-6.5) K/uL Lymph # (Auto) 0.98 L (1.2-3.4) K/uL [place] # (Auto) 0.75 H (0.11-0.59) K/uL Sodium 134 L (136-145) mmol/L BUN 53 H (6-23) mg/dl Creatinine 1.78 H D (0.6-1.4) mg/dl BUN/Creatinine Ratio 29.8 H (10-20) Glucose 160 H (70-99(Fasting)) mg/dl POC Glucose (70-99) mg/dl Hemoglobin A1c (4.5-5.6) % Troponin I > 73.00 H* (0-0.04) ng/ml 05/29/21 05/29/21 05/29/21 Range/Units 05:05 06:46 07:21 RDW Std Deviation (36.4-46.3) fL MPV (7.4-10.4) fL Neut # (Auto) (1.4-6.5) K/uL Lymph # (Auto) (1.2-3.4) K/uL [place] # (Auto) (0.11-0.59) K/uL Sodium (136-145) mmol/L BUN (6-23) mg/dl Creatinine (0.6-1.4) mg/dl BUN/Creatinine Ratio (10-20) Glucose (70-99(Fasting)) mg/dl POC Glucose 142 H (70-99) mg/dl Hemoglobin A1c 6.5 H (4.5-5.6) % Troponin I > 73.00 H* (0-0.04) ng/ml 05/29/21 05/29/21 Range/Units 11:27 12:17 RDW Std Deviation (36.4-46.3) fL MPV (7.4-10.4) fL Neut # (Auto) (1.4-6.5) K/uL Lymph # (Auto) (1.2-3.4) K/uL [place] # (Auto) (0.11-0.59) K/uL Sodium (136-145) mmol/L BUN (6-23) mg/dl Creatinine (0.6-1.4) mg/dl BUN/Creatinine Ratio (10-20) Glucose (70-99(Fasting)) mg/dl POC Glucose 160 H (70-99) mg/dl Hemoglobin A1c (4.5-5.6) % Troponin I 67.74 H* (0-0.04) ng/ml
--- NOTE | 2021-05-29 18:43 | Communication Note ---
Date of Service: May 29, 2021 Outpatient labs dated 02/20/2020, baseline creatinine at that time was 1.5 mg/dL. 1.3 mg/dL in 2019. Of note, proBNP screen performed December, as an outpatient was 2244 PG per mL.Echocardiogram performed January, as outpatient revealed LVEF of 40 to 44%. Patient still requiring oxygen supplementation 2 L/min. At present, will proceed with furosemide 20 mg daily with hopes that this will help optimize both his respiratory status and renal function.
[2021-05-29] MEDS ORDERED: INSULIN GLARGINE SOLOSTAR 100 UNITS/ML 3 ML PEN SC STA (20:52)
[2021-05-30 04:50] LABS: Basophils # (auto) 0.02 K/uL (0-0.2); Basophils % (auto) 0.2 %; Eosinophils % (auto) 2.2 %; Hematocrit (blood only) 43.8 % (42-52); Hemoglobin 14.7 g/dL (14.0-18.0); Immature Granulocytes # (auto) 0.02 K/uL (0.00-0.02); Immature Granulocytes % (auto) 0.2 %; Lymphocytes # (auto) 0.98 K/uL (1.2-3.4); Lymphocytes % (auto) 10.6 %; Mean Corpuscular Hemoglobin 29.4 pg (25-34); Mean Corpuscular Hgb Conc 33.6 g/dL (32-36); Mean Corpuscular Volume 87.6 fL (80-100); Mean Platelet Volume 10.9 fL (7.4-10.4); Monocytes # (auto) 0.67 K/uL (0.11-0.59); Monocytes % (auto) 7.3 %; Neutrophils # (auto) 7.33 K/uL (1.4-6.5); Neutrophils % (auto) 79.5 %; Platelet Count 156 K/uL (130-400); RDW Coefficient of Variation 14.1 % (11.5-14.5); RDW Standard Deviation 45.2 fL (36.4-46.3); White Blood Count 9.22 K/uL (4.8-10.8)
[2021-05-30 05:12] LABS: BUN Creatinine Ratio 32.7 (10-20); Calcium 8.7 mg/dl (8.5-10.1); Creatinine Clr Calc Pharmacy 31.1 ml/min; Est GFR (African American) 36.3 ml/min; Est GFR (Non-African American) 31.3 ml/min; Potassium 4.4 mmol/L (3.5-5.1)
[2021-05-30] MEDS: METOPROLOL TARTRATE 25 MG TAB PO SCH ×3 (06:25→20:17)
[2021-05-30] MEDS: TICAGRELOR 90 MG TAB PO SCH ×2 (08:03→20:17)
[2021-05-30] MEDS: ATORVASTATIN 40 MG TAB PO SCH (08:03)
[2021-05-30] MEDS: ASPIRIN 81 MG ECTAB PO SCH (08:03)
[2021-05-30] MEDS: INSULIN ASPART PER UNIT SC SCH ×4 (08:04→20:15)
--- NOTE | 2021-05-30 09:02 | XRay Report ---
XR chest 1V portable HISTORY: 71 years-old Male CHF acute shortness breath with reported congestive heart failure COMPARISON: Chest radiograph 05/28/2021 TECHNIQUE: Portable AP view of the chest FINDINGS: Cardiac silhouette is enlarged. Mild pulmonary vascular congestion without overt pulmonary edema. Mil d bibasilar densities similar to prior. No pneumothorax, large pleural effusion or lobar airspace con solidation. Degenerative changes of the shoulders and spine. IMPRESSION: 1. Cardiomegaly with pulmonary vascular congestion. 2. Mild bibasilar densities suggest atelectasis. Pneumonitis could appear similarly. ACT 112: Negative or not required by law. The above report was generated using voice recognition software. It may contain grammatical, syntax o r spelling errors. Electronically signed by: Chris Falcon M.D. 05/30/2021 9:00 AM
--- NOTE | 2021-05-30 09:12 | Cardiology Progress Note ---
Date of Service May 30, 2021 Assessment & Plan (1) Acute SC, inferior wall: (2) Syncope: (3) USMAN (acute kidney injury): Plan: 71-year-old male with past medical history of type 2 diabetes mellitus, hypertension, dyslipidemia presented with a madi syncopal episode, found to have an acute inferolateral ST segment elevation myocardial infarction with right ventricular involvement based on echocardiogram findings. Patient underwent drug-eluting stent to the culprit right coronary artery stenosis 05/28/2021. Repeat EKG 05/29/21 revealed mild residual inferior ST elevation over Q waves, significant troponin I elevation, no additional angina, no arrhythmias on telemetry overnight. Echo 05/28/21, LVEF 40-45%. Baseline outpatient creatinine in range of 1.3-1.5 mg/dl. Creatinine 1.48--> 1.78--> 2.08 mg/dl. Continue medication therapy with aspirin, Brilinta, Toprol tartrate, atorvastatin. Valsartan on hold. Given clear lungs and stable lung filed on CXR this am without overt volume overload will proceed with gentle IVF NS 80 ml/hr x 2 liters. IVF held post cath due to high LVEDP ~30 mm Hg. Hold off on staged PCI of LAD today , 05/30/21 and advance diet. NPO after midnight and reassess renal function am of 05/31/21. Explained rationale of above to patient at length. Admission and Anticipated Discharge Date Admission Date: May 28, 2021 Subjective Mr Aj is seen in cardiology follow up. He remains in room 102 as a telemetry overflow patient. Denies chest pain or shortness of breath. Slept upright in bedside chair. Sleeps in recliner at home on a chronic basis due to "sinus congestion". Does not sound like he had orthopnea overnight. Telemetry reveals SR in the 60s, rare isolated PVCs, no sustained arrhythmias. Review of Systems Review of Systems: All systems reviewed & are unremarkable except as noted in HPI & below Physical Exam Constitutional: WD/WN, vitals as above Respiratory: normal respiratory effort, lungs clear to auscultation Cardiovascular: RRR, no murmur, no edema Gastrointestinal (Abdomen): normal bowel sounds, soft, nontender, no hepat osplenomegaly Neurologic: PERRL, EOMI, accommodation nl, no face palsy, no dysarthria Results & Data ([facility]) Vital Signs (Past 12 Hours) Vital Signs Temp Pulse Resp BP Pulse Ox 05/30/21 08:10 37.2 C 70 20 125/86 96 05/30/21 04:00 37 C 72 14 115/78 94 05/30/21 00:00 37 C 67 14 95/66 L 93
[2021-05-30] MEDS: SODIUM CHLORIDE 0.9% 1000ML 1,000 ML IV SCH ×2 (09:52→20:18)
--- NOTE | 2021-05-30 11:56 | Hospitalist Progress Note ---
Date of Service May 30, 2021 Assessment & Plan (1) Acute DE, inferior wall: (2) Syncope: Plan: 71-year-old man with history of DM type II, hypertension, dyslipidemia who presented with syncopal episode and found to have acute inferolateral STEMI. Underwent cardiac catheterization with PCI to RCA on 05/28/2021. Patient currently hemodynamically stable. Plan for staged PCI. Postponed for now due to USMAN Currently on aspirin, Brilinta and atorvastatin. Echocardiogram reviewed. EF is 40 to 45% with mild global hypokinesis of the left ventricle, moderately dilated right ventricle with moderately reduced right ventricular systolic pressure, moderate MR and TR. RVSP of 40 to 50 mmHg (3) USMAN (acute kidney injury): Plan: Based on review of outpatient labs. Patient appeared to have USMAN on CKD 3. Worsening renal function from creatinine of 1.48 on admission to 2.08 today. Continue to hold valsartan. Avoid nephrotoxins. Avoid diuretics. IVF NSS Monitor renal function (4) Diabetes type 2, controlled: Plan: Hemoglobin A1c 6.5. Continue carbohydrate controlled diet. Maintain glycemic control with insulin subacute per protocol while inpatient. (5) Hypertension: Plan: Blood pressure currently controlled. Valsartan on hold as stated above Admission and Anticipated Discharge Date Admission Date: May 28, 2021 Subjective Patient seen and examined. Denies any cough, chest pain, shortness of breath, palpitations, dizziness Denies any nausea, abdominal pain, diarrhea Denies dysuria, frequency or urgency Physical Exam Constitutional: + well hydrated; no acute distress Eyes: PERRL, conjunctivae normal, anicteric sclerae ENMT: external ear and nose normal, oropharynx normal Respiratory: normal respiratory effort, lungs clear to auscultation Cardiovascular: Rate/Rhythm: regular rate and regular rhythm S1 S2 Gastrointestinal (Abdomen): normal bowel sounds, soft, nontender, no hepatosplenomegaly Neurologic: PERRL, EOMI, accommodation nl, no face palsy, no dysarthria Psychiatric: A+Ox3, euthymic affect Results & Data Results & Data ([facility]) Vital Signs (Past 12 Hours) Vital Signs Temp Pulse Resp BP Pulse Ox 05/30/21 11:43 36.9 C 81 18 139/87 94 05/30/21 08:10 37.2 C 70 20 125/86 96 05/30/21 04:00 37 C 72 14 115/78 94 05/30/21 00:00 37 C 67 14 95/66 L 93 Laboratory Results Abnormal lab results 05/29/21 05/29/21 05/29/21 Range/Units 12:17 16:23 20:32 MPV (7.4-10.4) fL Neut # (Auto) (1.4-6.5) K/uL Lymph # (Auto) (1.2-3.4) K/uL [place] # (Auto) (0.11-0.59) K/uL Sodium (136-145) mmol/L BUN (6-23) mg/dl Creatinine (0.6-1.4) mg/dl BUN/Creatinine Ratio (10-20) Glucose (70-99(Fasting)) mg/dl POC Glucose 124 H 123 H (70-99) mg/dl Troponin I 67.74 H* (0-0.04) ng/ml 05/30/21 05/30/21 05/30/21 Range/Units 04:35 04:35 11:18 MPV 10.9 H (7.4-10.4) fL Neut # (Auto) 7.33 H (1.4-6.5) K/uL Lymph # (Auto) 0.98 L (1.2-3.4) K/uL [place] # (Auto) 0.67 H (0.11-0.59) K/uL Sodium 132 L (136-145) mmol/L BUN 68 H (6-23) mg/dl Creatinine 2.08 H D (0.6-1.4) mg/dl BUN/Creatinine Ratio 32.7 H (10-20) Glucose 134 H (70-99(Fasting)) mg/dl POC Glucose 158 H (70-99) mg/dl Troponin I (0-0.04) ng/ml
[2021-05-31 05:35] LABS: Hematocrit (blood only) 42.8 % (42-52); Hemoglobin 14.4 g/dL (14.0-18.0); Mean Corpuscular Hemoglobin 29.3 pg (25-34); Mean Corpuscular Hgb Conc 33.6 g/dL (32-36); Mean Platelet Volume 11.1 fL (7.4-10.4); Platelet Count 159 K/uL (130-400); RDW Standard Deviation 44.8 fL (36.4-46.3); Red Blood Count 4.92 M/uL (4.7-6.1); White Blood Count 7.25 K/uL (4.8-10.8)
[2021-05-31] MEDS: METOPROLOL TARTRATE 25 MG TAB PO SCH ×3 (05:53→20:51)
[2021-05-31 06:02] LABS: Albumin Globulin Ratio 1.4 (0.9-2); Albumin Level 3.8 gm/dl (3.4-5.0); BUN Creatinine Ratio 42.1 (10-20); Bilirubin,Total 1.1 mg/dl (0.2-1.0); Calcium 8.4 mg/dl (8.5-10.1); Creatinine Clr Calc Pharmacy 39.5 ml/min; Est GFR (African American) 48.4 ml/min; Est GFR (Non-African American) 41.7 ml/min; Globulin 2.7 gm/dl (2.5-4.0); Potassium 4.2 mmol/L (3.5-5.1); Total Protein 6.5 gm/dl (6.0-8.3)
[2021-05-31] MEDS: INSULIN ASPART PER UNIT SC SCH ×4 (08:18→20:50)
[2021-05-31] MEDS: ASPIRIN 81 MG ECTAB PO SCH (09:01)
[2021-05-31] MEDS: TICAGRELOR 90 MG TAB PO SCH ×2 (09:01→20:52)
[2021-05-31] MEDS: ATORVASTATIN 40 MG TAB PO SCH (09:01)
--- NOTE | 2021-05-31 11:01 | Cardiology Progress Note ---
Date of Service May 31, 2021 Assessment & Plan (1) ST elevation myocardial infarction (STEMI) of inferolateral wall: (2) Ischemic cardiomyopathy: (3) Syncope: (4) USMAN (acute kidney injury): (5) Hypertension: (6) Dyslipidemia: Plan: 71-year-old male with past medical history of type 2 diabetes mellitus, hypertension, dyslipidemia presented with a madi syncopal episode, found to have an acute inferolateral ST segment elevation myocardial infarction with right ventricular involvement based on echocardiogram findings. Patient underwent drug-eluting stent to the culprit right coronary artery stenosis 05/28/2021. Repeat EKG 05/29/21 revealed mild residual inferior ST elevation over Q waves, significant troponin I elevation, no additional angina, no arrhythmias on telemetry overnight. Echo 05/28/21, LVEF 40-45% with noted RV hypokinesis (1) ST elevation myocardial infarction (STEMI) of inferolateral wall: Continue ASA, Brilinta metoprolol, atorvastatin. Creatinine improved. Proceed with staged PCI of LAD 05/31/21. (2) Ischemic cardiomyopathy: Volume status stable. Consider transitioning to metoprolol succinate at discharge. Consider resuming valsartan with renal function determined to be stable post PCI. (3) Syncope: Likely due to RCA territory ischemia. No ventricular arrhythmias captured. LVEF in 40s, No indication for AICD. (4) USMAN (acute kidney injury): Creatinine peaked at 2.08, down to 1.64 05/31/21, baseline from 2019=1.5 mg/dl. Received 2 L of IVF 05/30 to 05/31 and has tolerated volume well. Proceed to staged PCI of LAD. Repeat BMP am of 06/01/21 (5) Hypertension: Controlled. Continue metoprolol. Add back ARB in future. (6) Dyslipidemia: Continue atorvastatin. Admission and Anticipated Discharge Date Admission Date: May 28, 2021 Subjective Mr Aj is seen in follow up of inferolateral STEMI, CAD, Dyslipidemia. He feels well. Denies chest pain or shortness of breath. Telemetry reveals SR in the range of 70-80s without arrhythmia. Physical Exam Constitutional: WD/WN, vitals as above Respiratory: normal respiratory effort, lungs clear to auscultation Cardiovascular: RRR, no murmur, no edema Gastrointestinal (Abdomen): normal bowel sounds, soft, nontender, no hepatosplenomegaly Neurologic: PERRL, EOMI, accommodation nl, no face palsy, no dysarthria Results & Data ([facility]) Vital Signs (Past 12 Hours) Vital Signs Temp Pulse Pulse Resp BP Pulse Ox 05/31/21 08:00 36.9 C 75 76 16 123/78 95 05/31/21 07:59 79 05/30/21 22:57 36.7 C 67 20 115/76 92 Laboratory Results Cardiac Enzymes 05/31/21 Range/Units 05:05 AST 34 (13-39) U/L CBC 05/31/21 Range/Units 05:09 WBC 7.25 (4.8-10.8) K/uL RBC 4.92 (4.7-6.1) M/uL Hgb 14.4 (14.0-18.0) g/dL Hct 42.8 (42-52) % Plt Count 159 (130-400) K/uL Comprehensive Metabolic Panel 05/31/21 Range/Units 05:05 Sodium 132 L (136-145) mmol/L Potassium 4.2 (3.5-5.1) mmol/L Chloride 106 (98-107) mmol/L Carbon Dioxide 19 L (21-32) mmol/L BUN 69 H (6-23) mg/dl Creatinine 1.64 H D (0.6-1.4) mg/dl Glucose 110 H (70-99(Fasting)) mg/dl Calcium 8.4 L (8.5-10.1) mg/dl AST 34 (13-39) U/L ALT 22 (7-52) U/L Alkaline Phosphatase 56 (34-104) U/L Total Protein 6.5 (6.0-8.3) gm/dl Albumin 3.8 (3.4-5.0) gm/dl
[2021-05-31] MEDS ORDERED: MIDAZOLAM HCL 1 MG/ML 2ML VIAL ONE (12:32)
[2021-05-31] MEDS ORDERED: NITROGLYCERIN/D5W 100MCG/ML 20ML SYR ONE (12:32)
[2021-05-31] MEDS ORDERED: HEPARIN (PORCINE) 1000 UNIT/ML 10 ML (CATH LAB USE ONLY) ONE (12:32)
[2021-05-31] MEDS ORDERED: fentaNYL citrate 100 MCG/2 ML VIAL ONE (12:32)
[2021-05-31] MEDS ORDERED: niCARdipine HCL INJ 2.5 MG/ML 10 ML AMP ONE (12:32)
[2021-05-31] MEDS ORDERED: FUROSEMIDE 40 MG/4 ML VIAL IV ONE (12:53)
--- NOTE | 2021-05-31 13:06 | Pre Anesthesia Assessment ---
Date of Service May 31, 2021 Pre Sedation Assessment Vital Signs Temp Pulse Pulse Resp BP Pulse Ox 05/31/21 12:27 65 16 144/94 H 98 05/31/21 08:00 98.4 F 75 76 16 123/78 95 05/31/21 07:59 79 05/30/21 22:57 98.1 F 67 20 115/76 92 05/30/21 20:00 98.4 F 83 18 128/71 95 05/30/21 19:29 98.4 F 80 18 126/84 95 05/30/21 15:52 98.1 F 76 18 133/84 96 Cardiovascular RRR, no murmur, no edema Respiratory normal respiratory effort, lungs clear to auscultation Pre-Sedation Airway Assessment Smoking Status: Never smoker Hx Sleep Apnea: No Hx Difficult Intubation: No Short, Thick Neck: No Thyromental Distance: > or= 3.5 Finger Breadths Oral Cavity: + WNL Mallampati Class: III ASA: ASA3 NPO Status Date of Last Intake of Fluids: 05/30/21 Time of Last Intake of Fluids: 20:00 Date of Last Intake of Solid Food: 05/30/21 Time of Last Intake of Solid Foods: 20:00 Procedure Planning Contraindications for Sedation: none Current Medications Reviewed: Yes Notes The planned sedation has been discussed with the patient. Informed Consent was obtained. I have identified the patient, determined the appropriateness of sedation and have assessed the patient immediately prior to the procedure. All medicine(s) and interventions are by my order.
--- NOTE | 2021-05-31 14:21 | Post Anesthesia Assessment ---
Date of Service May 31, 2021 Post Sedation Assessment Vital Signs Temp Pulse Pulse Resp BP Pulse Ox 05/31/21 14:00 64 14 142/78 H 99 05/31/21 13:55 65 16 140/79 98 05/31/21 12:27 65 16 144/94 H 98 05/31/21 08:00 98.4 F 75 76 16 123/78 95 05/31/21 07:59 79 05/30/21 22:57 98.1 F 67 20 115/76 92 05/30/21 20:00 98.4 F 83 18 128/71 95 05/30/21 19:29 98.4 F 80 18 126/84 95 05/30/21 15:52 98.1 F 76 18 133/84 96 Recovery Score Activity: Moves 4 extremities Respiration: Deep Breath/Cough Circulation: +/-20% PreAnes Value Consciousness: Fully Awake Oxygen Saturation: > 92% On Room Air Post Anesthesia Score: 10 Discharge Sedation Level of Care: Fast Track Phase II Post Sedation Plan On clinical assessment, the patient appears to have tolerated the sedation without complications. Patient is recovering as anticipated. Patient will continue to be monitored by nursing and may be discharged when sedation discharge criteria are met per below protocol. Upon Completions of procedure up to 15 minutes continue every 5 minute vital signs and the P.A.R. score; then discharge to a Phase I or Fast Track to Phase II per the following guidelines: * Discharge Patient to appropriate Phase II area if PAR is 8 or greater or return to pre- procedure baseline. The post - procedure orders will be as directed. * If PAR score is less than 8 or not return to pre-procedure baseline then patient will follow Phase I monitoring till PAR is reached for Phase II. The Phase I may be done in procedure room or may call to secure a Phase I area. * If naloxone or flumazenil are used for reversal, hold in Phase I for continued monitoring from when last reversal dose was given for a minimum of 60 minutes or longer pending the nurse and/or physician discretion of patient condition before discharge to Phase II. Please call the Sedation Physician to re-evaluate and complete post-note for discharge to Phase II area. Do NOT discharge from procedure sedation or Phase 1 until post- sedation evaluation note is complete by procedure /sedation MD Sedation Discharge Instructions to be given to the patient at discharge to home.
--- NOTE | 2021-05-31 14:24 | Cardiac Catheterization ---
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 Cardiac Status Clinical evaluation leading to the procedure CAD Presenation: STEMI Anginal Classification: CCS IV Heart Failure: No Cardiogenic Shock within 24 Hours: No Cardiac Arrest within 24 Hours: No Imaging Studies Past 6 Months: Yes Stress Studies Past 6 Months: No Diagnostic Physicians Name: Uziel Roque MD Status: Elective Closure Device Percutaneous Entry Location: Radial Closure Device: Radial Band Recommendations: PCI without planned CABG PCI Indication: Staged PCI Lesion Segment Name: Mid LAD Culprit Artery: No Stenosis Prior to Rx (%): 80 Chronic Total Occlusion: No IVUS: Yes FFR: No Pre-Procedure LAURITA Flow: 3 Previously Treated Lesion: No Lesion Complexity: Non-High/Non-C Lesion Length (mm): 23 Thrombus Present: No Bifurcation Lesion: Yes Guidewire Across Lesion: Stenosis Post-Procedure (%): 0 Post-Procedure LAURITA Flow: 3 Devices(s) Deployed: Yes Yes Intraprocedure Events Significant Disection: No Cardiac Cath Procedure Full Procedure Date May 31, 2021 Pre-Procedure Diagnosis Pre-Procedure Diagnosis: CAD AUC Score AUC Score: 7 Post-Procedure Diagnosis Post-Procedure Diagnosis: Severe CAD and Successful PCI Procedure(s) Performed Procedure(s) Performed: Coronary Angiography, Drug Eluting Stent and IVUS [employer] President Uziel Roque MD Supervisor Sleeping Bag Department(s) Rafael Estimated Blood Loss Estimated Blood Loss: 15 Medication(s) Medication(s): Fentanyl, Heparin, Lidocaine 1%, Nicardipine, Nitroglycerin and Versed Medication(s): Ticagrelor Summary of Findings Indication: Staged PCI of LAD. Previously underwent primary PCI for inferior STEMI 05/28/2021 Access: 6 Fr right radial artery Catheters: EBU 3.5 guide Findings: For full details of patient's coronary angiography please see cath report dictated on 05/28/2021. Patient again found to have diffuse 80% proximal to mid disease extending across takeoff of medium D1. Also with severe disease and small OM 2, OM 3. -- PCI of LAD-- Antithrombotic therapy: Heparin, ticagrelor Procedure: Left main cannulated with EBU 3.5 guide BMW wire placed into first diagonal Whisper wire passed across lesion into distal LAD [place] IVUS catheter passed across lesion into mid LAD. Pullback revealed severe, diffuse, mildly calcified disease extending just across takeoff of diagonal and back to proximal LAD. No significant left main disease. Proximal to mid LAD stented with 2.75 x 28 mm Xience drug-eluting stent Stent post-dilated with 3.5 noncompliant balloon IC vasodilators administered for spasm Repeat IVUS of LAD stent revealed well apposed stent with no apparent edge complications. Stent did appear underexpanded in mid aspect. Stent postdilated with 4.0 NC Post procedure LAURITA 3 flow, stent well expanded with minimal residual stenosis. No branch vessel compromise or other apparent cardiac complications. Arterial Closure: TR Summary: 1. Successful PCI of proximal to mid LAD with single drug-eluting stent (2.75 x 28 mm Xience; postdilated with 4.0 NC proximally). Recommendations: To PCU for continued monitoring Continue dual-antiplatelet therapy for at least 1 year Continue statin, and ASCVD risk factor modification Consult cardiac Rehab Medical management of residual branch vessel disease. Hemodynamics Rest Ao:: 105/46/72 Final Ao: 105/69/85 LV: -- Recommendations Recommendations: PCI without planned CABG Specimens Specimens: None Radiation Exposure (mGy) 1471 Contrast (mls) 90 Fluids (cc crystalloids) Fluids (cc crystalloids): 450 Drains Drains: None Anesthesia Moderate 9034-5428 Procedural Complication(s) None Disposition PCU I attest to the content of the Intraoperative Record and any orders documented therein. Any exceptions are noted below. [facility] Card Cath Procedure Codes Therapeutic Services & Ancillary Proc Procedure 1: Cardiovascular Tx and Anc Procedures: 04639 IV Ultrasound (Coronary or Graft) Moderate Sedation Procedure 1: Sedation/Anesthesia: 13437 Mod Sedation by the same physician;Init15 Min Child Age 5 & Up Procedure 2: Sedation/Anesthesia: 87605 Mod Sedation by the same physician; Ea A [id number] Minutes Stenting Procedure 1: Cardiovascular Stent Procedures: 74614 Perc transcatheter placement of intracoronary stent(s), with ang PG Care Time/CCT Total # of Minutes Spent Total Time Spent with Patient: Total time spent is greater than 50% in coordination of care (as documented) at patient's floor/unit and/or counseling patient:
--- NOTE | 2021-05-31 15:11 | Hospitalist Progress Note ---
Date of Service May 31, 2021 Assessment & Plan (1) Acute VA, inferior wall: (2) Syncope: Plan: 71-year-old man with history of DM type II, hypertension, dyslipidemia who presented with syncopal episode and found to have acute inferolateral STEMI. Underwent cardiac catheterization with PCI to RCA on 05/28/2021. Echocardiogram reviewed. EF is 40 to 45% with mild global hypokinesis of the left ventricle, moderately dilated right ventricle with moderately reduced right ventricular systolic pressure, moderate MR and TR. RVSP of 40 to 50 mmHg Underwent staged PCI today (3) USMAN (acute kidney injury): Plan: Based on review of outpatient labs. Patient appeared to have USMAN on CKD 3. Creatinine of 1.48 went up to 2.08, down to 1.6 today Continue to hold valsartan. Avoid nephrotoxins. Avoid diuretics. Monitor renal function (4) Diabetes type 2, controlled: Plan: Hemoglobin A1c 6.5. Continue carbohydrate controlled diet. Maintain glycemic control with insulin subacute per protocol while inpatient. (5) Hypertension: Plan: Blood pressure currently controlled. Valsartan on hold as stated above Admission and Anticipated Discharge Date Admission Date: May 28, 2021 Subjective Patient seen and examined after cardiac catheterization today Denies any cough, chest pain, shortness of breath, palpitations, dizziness Denies any nausea, abdominal pain, diarrhea Denies dysuria, frequency or urgency Physical Exam Constitutional: + well hydrated; no acute distress Eyes: PERRL, conjunctivae normal, anicteric sclerae ENMT: external ear and nose normal, oropharynx normal Respiratory: normal respiratory effort, lungs clear to auscultation Cardiovascular: Rate/Rhythm: regular rate and regular rhythm S1 S2 Gastrointestinal (Abdomen): normal bowel sounds, soft, nontender, no hepatosplenomegaly Musculoskeletal: Pedal edema Neurologic: PERRL, EOMI, accommodation nl, no face palsy, no dysarthria Psychiatric: A+Ox3, euthymic affect Results & Data Results & Data ([facility]) Vital Signs (Past 12 Hours) Vital Signs Temp Pulse Pulse Resp BP Pulse Ox 05/31/21 14:00 64 14 142/78 H 99 05/31/21 13:55 65 16 140/79 98 05/31/21 12:27 65 16 144/94 H 98 05/31/21 08:00 36.9 C 75 76 16 123/78 95 05/31/21 07:59 79 Laboratory Results Abnormal lab results 05/30/21 05/30/21 05/31/21 Range/Units 16:30 20:00 05:05 MPV (7.4-10.4) fL Activ Coag Time Kaolin (94-140) SECONDS Sodium 132 L (136-145) mmol/L Carbon Dioxide 19 L (21-32) mmol/L BUN 69 H (6-23) mg/dl Creatinine 1.64 H D (0.6-1.4) mg/dl BUN/Creatinine Ratio 42.1 H (10-20) Glucose 110 H (70-99(Fasting)) mg/dl POC Glucose 108 H 114 H (70-99) mg/dl Calcium 8.4 L (8.5-10.1) mg/dl Total Bilirubin 1.1 H (0.2-1.0) mg/dl 05/31/21 05/31/21 05/31/21 Range/Units 05:09 11:45 13:29 MPV 11.1 H (7.4-10.4) fL Activ Coag Time Kaolin 333 H (94-140) SECONDS Sodium (136-145) mmol/L Carbon Dioxide (21-32) mmol/L BUN (6-23) mg/dl Creatinine (0.6-1.4) mg/dl BUN/Creatinine Ratio (10-20) Glucose (70-99(Fasting)) mg/dl POC Glucose 119 H (70-99) mg/dl Calcium (8.5-10.1) mg/dl Total Bilirubin (0.2-1.0) mg/dl
[2021-05-31] MEDS ORDERED: SODIUM CHLORIDE 0.9% 1000ML 1,000 ML IV SCH (17:45)
[2021-05-31] MEDS: ACETAMINOPHEN 325 MG TAB PO PRN (20:51)
[2021-06-01 05:49] LABS: Hematocrit (blood only) 41.6 % (42-52); Hemoglobin 13.9 g/dL (14.0-18.0); Mean Corpuscular Hemoglobin 29.1 pg (25-34); Mean Corpuscular Hgb Conc 33.4 g/dL (32-36); Mean Corpuscular Volume 87.2 fL (80-100); Mean Platelet Volume 10.5 fL (7.4-10.4); Platelet Count 168 K/uL (130-400); RDW Coefficient of Variation 14.1 % (11.5-14.5); RDW Standard Deviation 45.3 fL (36.4-46.3); Red Blood Count 4.77 M/uL (4.7-6.1); White Blood Count 6.95 K/uL (4.8-10.8)
[2021-06-01 06:13] LABS: BUN Creatinine Ratio 40.1 (10-20); Calcium 8.4 mg/dl (8.5-10.1); Est GFR (African American) 55.2 ml/min; Est GFR (Non-African American) 47.7 ml/min
[2021-06-01] MEDS: METOPROLOL TARTRATE 25 MG TAB PO SCH (06:48)
[2021-06-01] MEDS: INSULIN ASPART PER UNIT SC SCH ×2 (07:37→12:32)
[2021-06-01] MEDS: ATORVASTATIN 40 MG TAB PO SCH (08:08)
[2021-06-01] MEDS: ASPIRIN 81 MG ECTAB PO SCH (08:09)
[2021-06-01] MEDS: TICAGRELOR 90 MG TAB PO SCH (08:09)
--- NOTE | 2021-06-01 09:32 | Electrocardiogram Report ---
Test Reason : Blood Pressure : / mmHG Vent. Rate : 076 BPM Atrial Rate : 076 BPM P-R Int : 216 ms QRS Dur : 098 ms QT Int : 402 ms P-R-T Axes : 056 118 -51 degrees QTc Int : 452 ms Sinus rhythm with 1st degree A-V block Left atrial enlargement Right axis deviation Possible Anterior CT age indeterminate Serial changes of evolving inferolateral CT Abnormal ECG When compared with ECG of 28-MAY-2021 12:47, Serial changes of evolving of an inferolateral CT First degree AVB is present Confirmed by Higinio Burns ([id number]) on 06/01/2021 9:32:01 AM Referred By: REFERRED SELF Confirmed By:Higinio Burns
--- NOTE | 2021-06-01 13:14 | Cardiology Progress Note ---
Date of Service June 01, 2021 Assessment & Plan (1) ST elevation myocardial infarction (STEMI) of inferolateral wall: (2) Ischemic cardiomyopathy: (3) USMAN (acute kidney injury): (4) Dyslipidemia: (5) Hypertension: (6) Diabetes type 2, controlled: Plan: Discussed importance of continuing dual antiplatelet therapy uninterrupted for a minimum of 1 year post PR/PCI. Transition metoprolol tartrate to Toprol-XL 100 mg daily (reduced from outpatient dose of 200 mg daily). Patient taking losartan/HCTZ 50/12.5 mg daily in the outpatient setting. Recommend restart ARB and hold hydrochlorothiazide. Also taking Lasix 20 mg daily in outpatient setting. This may be restarted at discharge. Repeat basic metabolic panel 3-5 days post discharge. Post cardiac catheterization activity restrictions reviewed. Outpatient cardiology follow-up in the [facility] in 1-2 weeks. Admission and Anticipated Discharge Date Admission Date: May 28, 2021 Subjective Patient seen examined the bedside. Requesting discharge. Feeling well from a cardiovascular standpoint. No chest discomfort or shortness of breath overnight. Telemetry reveals sinus rhythm in the 80s. Occasional PVCs. Staged drug-eluting stent to the LAD performed yesterday without complication. Admitted with inferior lateral STEMI. Ejection fraction 40-45%. Review of Systems Review of Systems: All systems reviewed & are unremarkable except as noted in Subjective Physical Exam Constitutional: well nourished; no acute distress and not ill appearing Respiratory: normal respiratory effort; no respiratory distress, no labored breathing and no retractions Auscultation: lungs clear to auscultation bilaterally; breath sounds present, no diminished lung sounds, no crackles, no rales, no rhonchi and no wheezes Cardiovascular: Rate/Rhythm: regular rate and regular rhythm Heart Sounds: normal S1 and normal S2; no murmur Vessels: radial pulses present (Right anterior wrist ecchymosis. No hematoma.); no JVD and no carotid bruit Gastrointestinal (Abdomen): Inspection/Auscultation: abdomen normal to inspection and normal bowel sounds; abdomen not distended Percussion/Pa lpation: abdomen soft; abdomen nontender, no guarding and abdomen not rigid Neurologic: CN's II-XI intact bilaterally and moves all extremities; no focal motor deficits Motor/Sensory: no tremor Psychiatric: A+Ox3, euthymic affect Results & Data ([facility]) Vital Signs (Past 12 Hours) Vital Signs Temp Pulse Pulse Resp BP Pulse Ox 06/01/21 10:50 80 06/01/21 10:09 37.0 C 85 16 150/94 H 96 06/01/21 08:50 73 06/01/21 08:00 36.6 C 75 20 139/83 95
--- NOTE | 2021-06-01 14:14 | Discharge Summary ---
Date of Service June 01, 2021 Admission HPI Per Admitting Provider Eliseo is a 71-year-old male with no prior past medical history, history of type 2 diabetes mellitus, and history of hypertension who was seen in this morning for an episode of syncope and he was found to have a STEMI now status post PCI. Patient had no chest pain at any point, did not have unstable/crescendo angina, and was normal prior to morning of admission. Morning of admission he woke up in bed and had a unwitnessed episode of syncope. On EMS evaluation patient did not have ST changes, repeat EKG in ER showed inferior ST elevations without chest pain. Patient was taken for PCI with intervention as noted below. Discussed with interventional cardiology, recommended for observation in ICU overnight and additional intervention tomorrow renal function permitting. Patient seen at bedside post procedure. He reports he feels well, although notes that he did not have any chest pain or crescendo angina leading to his episode. He had one episode of syncope morning presentation, no prior episodes of syncope. He has had right flank rib pain, and had struck his head and has a "bump "that is sore on the back of his head. Otherwise denies pain. No shortness of breath, difficulty breathing, palpitations. Right radial pressure band in place, no pain. Denies extremity pain. Denies nausea, vomiting, diarrhea, constipation. He reports he does have a strong family history of ME. His father had a ME in his 40s, but was a heavy smoker. His brother also had a ME, and ultimately had passed from a ME following a snakebite. Has a history of type 2 diabetes mellitus, initially diagnosed with an A1c of greater than 12 but which was brought down to well-controlled with Metformin monotherapy and dietary changes. Patient denies tobacco abuse. Does have a history of hypertension. Medical History: Reviewed Medications: Reviewed Surgical History: Reviewed Allergies: Reviewed Social History: No tobacco abuse, no alcohol abuse, no recreational drug use. Code Status: Full code. Admission Exam Per Admitting Provider General: A&Ox3. NAD. Cooperative. Skin: Soft tissue fullness appreciated at posterior scalp, no laceration or crepitus. Mild tenderness to palpation of rib at ~6th rib mid-axillary line, right. HEENT: Atraumatic, normocephalic. Acuity and hearing grossly intact. Pulm: CTAB A&P. -wheezes, -rales, -rhonchi. Symmetrical chest rise. No increase in work of breathing. No respiratory distress. Cardiac: RRR, -mrg. Radial pulses intact and symmetrical. Abdominal: Nontender, nondistended, soft. BS present. Extremities: Right TR band in place on right arm. Capillary refill in fingers intact on right, left radial pulse intact. Client Business Manager strength 5/5 bilaterally and symmetrical. 1+ bilat LE/ankle edema. Ankle dorsiflexion/plantar flexion 5/5. Sensation to soft touch intact in feet bilaterally and symmetrically. Principal Diagnosis Syncope ST elevation myocardial infarction (STEMI) of inferolateral wall S/P Stage PCI Acute on chronic kidney disease Discharge Exam Constitutional + well hydrated; no acute distress Eyes PERRL, conjunctivae normal, anicteric sclerae ENMT external ear and nose normal, oropharynx normal Respiratory normal respiratory effort, lungs clear to auscultation Cardiovascular Rate/Rhythm: regular rate and regular rhythm S1 S2 Gastrointestinal (Abdomen) normal bowel sounds, soft, nontender, no hepatosplenomegaly Musculoskeletal +pedal edema Neurologic PERRL, EOMI, accommodation nl, no face palsy, no dysarthria Psychiatric A+Ox3, euthymic affect Discharge Data Allergies Allergy/AdvReac Type Severity Reaction Status Date / Time No Known Allergies Allergy Unverified 03/20/16 06:36 Consultations 05/28/21 13:05 Consult Cardiac Rehabilitation Routine Consult Executive Legal Secretary Routine 05/29/21 07:29 Consult Cardiology Routine Procedures Performed Operation Date: 05/28/21 11:30 Actual Procedures p Aspiration/PCI w/OBIE for Stemi - Slick Roque MD s Cineradiography w/Routine Exam - Slick Roque MD s Cath, Left with Cors and Vent - Slick Roque MD Operation Date: 05/31/21 10:00 Actual Procedures p Cineradiography w/Routine Exam - Slick Roque MD s IVUS Coronary Single Vessel - Slick Roque MD p Drug Eluting Stent SGl Vessel - Slick Roque MD Ordered Studies 05/28/21 11:28 CL Cath Imgs for PACS use only Stat CL Cath Imgs for PACS use only Stat 05/28/21 11:43 CT head/brain wo con Stat 05/30/21 07:03 CL Cath Imgs for PACS use only Routine 05/31/21 12:57 CL Cath Imgs for PACS use only Stat Hospital Course (1) Acute ME, inferior wall: (2) Syncope: 71-year-old man with history of DM type II, hypertension, dyslipidemia who presented with syncopal episode and found to have acute inferolateral STEMI. Underwent cardiac catheterization with PCI to RCA on 05/28/2021. Echocardiogram reviewed. EF is 40 to 45% with mild global hypokinesis of the left ventricle, moderately dilated right ventricle with moderately reduced right ventricular systolic pressure, moderate MR and TR. RVSP of 40 to 50 mmHg Underwent staged PCI of LAD on 05/31/21 Patient discharged on aspirin and brilinta Started on atorvastatin daily Metoprolol succinate was changed to 100mg daily Patient is on losartan-HCTZ at home. Changed to losartan only Patient to follow up with Cardiology outpatient Continue lasix (3) USMAN (acute kidney injury): Patient had USMAN on CKD 3. Creatinine of 1.48 on admission went up to 2.08, down to 1.47 today Patient needs follow up with Nephrology outpatient Get BMP in 3 days and follow up result with PCP Losartan-HCTZ changed to losartan only Continue lasix (4) Diabetes type 2, controlled: Hemoglobin A1c 6.5. Continue carbohydrate controlled diet. Continue metformin PCP to continue management (5) Hypertension: Blood pressure currently controlled. Home losartan-HCTZ changed to losartan only as above Total Time Total Time Spent Total Time Spent (In Minutes): 50 Total Time Includes: Examination of the Patient, Discharge Planning, Medication Reconciliation, Communication With Other Providers and Other (called patient's pharm) Discharge Plan Discharge Items Patient Disposition: Home - Self-Care Reason For Visit: Syncope Discharge Diagnosis: Syncope ST elevation myocardial infarction (STEMI) of inferolateral wall Acute on chronic kidney disease Activity: Resume your previous activity Non-emergency contact: Primary Care Provider, Sliver Former and Preparole Counseling Aide Call non-emergency contact if: you have any medication questions and your symptoms worsen Follow-up/Referrals: Clifton Farias MD [Primary Care Provider] - Diet: Heart Healthy and Low Sodium (2gm) Ambulatory Orders: Basic Metabolic Panel (Routine) Timeframe: 3 Days Location: Determined by Patient Ordered By: Nika George Attending Provider Instructions: Mr Aj. You came to the hospital after passing out. You were evaluated and found to have had a heart attack. You had cardiac catheterization with stents placed (in right coronary artery and left anterior descending arteries). You also had acute on chronic kidney injury. You are being discharged home on aspirin and brilinta(ticagrelor) for next one year. You were also started on atorvastatin Your metoprolol succinate was changed from 200mg to 100mg daily Your losartan-Hydrochlorothiazide was changed to losartan only. It is very important that you follow up with your Primary Doctor and Cardiology. Please do the blood test, Basic metabolic panel in 3 days and follow up result with your Primary Doctor. You need to follow up with Nephrology outpatient. It was a pleasure taking care of you. Pending Studies at Discharge: No Stand-Alone Forms: My [facility], Smoking Cessation Medications and DC Order Prescriptions: New aspirin 81 mg Tablet,Delayed Release (Dr/Ec) 81 mg PO QAM Qty: 30 RF: 0 Brilinta 90 mg Tablet 90 mg PO BID Qty: 60 RF: 0 atorvastatin 80 mg tablet 80 mg PO DAILY Qty: 30 RF: 0 losartan 50 mg tablet 50 mg PO DAILY Qty: 30 RF: 0 metoprolol succinate 100 mg tablet extended release 24 hr 100 mg PO DAILY Qty: 30 RF: 0 Continued Multiple Vitamins W/ Minerals (Multi Adult Gummies) 1 CHW CHW 1 tab PO QAM Qty: 0 RF: 0 metformin 500 mg tablet 500 mg PO BID RF: 0 furosemide 20 mg tablet 20 mg PO DAILY RF: 0 Discontinued METOPROLOL SUCCINATE (TOPROL XL) 200 MG tablet 200 mg PO QAM Qty: 0 RF: 0 losartan-hydrochlorothiazide 50-12.5 mg tablet 1 tab PO DAILY RF: 0 Discharge Orders: Discharge Order (Routine); Ordered 06/01/21 Ordered By: Nika Chandler/Other Patient Handouts: Managing Type 2 Diabetes, Special Foot Care for Diabetes Admission Data Admit Date/Time: 05/28/21 13:05 Attending Provider: Nika Oakes I. Admit Provider: Slick Roque Primary Care Provider: Clifton Farias Other Providers: Yuri Gary ; George Russell Other Interventions: Discharge Summary Assessment (RN) Last Done: 06/01/21 14:17
[2021-06-02] MEDS ORDERED: METOPROLOL SUCC 25MG EXT REL TAB PO SCH (09:00)
== END 2021-06-01 15:00 | disposition home or self-care (01) | DRG 247 ==
LOC: ED 11:28 → 1E 11:50 → CC 11:50 → 1E 13:05 → 2N 06-01 10:07

== ENCOUNTER 2023-09-11 10:23 | Inpatient (IN) ==
[2023-09-11 11:00] LABS: Basophils # (auto) 0.04 K/uL (0.00-0.20); Basophils % (auto) 0.7 %; Eosinophils # (auto) 0.13 K/uL (0.00-0.50); Eosinophils % (auto) 2.3 %; Hematocrit (blood only) 40.1 % (42.0-52.0); Hemoglobin 12.7 g/dl (14.0-18.0); Immature Granulocytes # (auto) 0.01 K/uL (0.01-0.20); Immature Granulocytes % (auto) 0.2 %; Lymphocytes # (auto) 0.41 K/uL (1.20-3.40); Lymphocytes % (auto) 7.2 %; Mean Corpuscular Hemoglobin 27.7 pg (25.0-34.0); Mean Corpuscular Hgb Conc 31.7 g/dL (32.0-36.0); Mean Corpuscular Volume 87.6 fL (80.0-100.0); Mean Platelet Volume 9.9 fL (9.4-12.4); Monocytes # (auto) 0.31 K/uL (0.11-0.59); Monocytes % (auto) 5.4 %; Neutrophils # (auto) 4.83 K/uL (1.40-6.50); Neutrophils % (auto) 84.2 %; Platelet Count 218 K/uL (130-400); RDW Standard Deviation 50.5 fL (36.4-46.3); Red Blood Count 4.58 M/uL (4.70-6.10); White Blood Count 5.73 K/ul (4.8-10.8)
--- NOTE | 2023-09-11 11:07 | Emergency Department Note ---
Impression & Plan Swelling abdomen, Hdwvy-gf-euuhqjf kidney injury, Fluid overload, unspecified ED Provider Note Provider: Clay Martinez MD DATE OF SERVICE: 09/11/2023 CHIEF COMPLAINT: Swelling, referred by HISTORY OF PRESENT ILLNESS: Patient is a 73-year-old gentleman history of type 2 diabetes, CAD with stents, and hypertension referred by his doctor due to worsening swelling. The last several months gained 50 pounds of significant abdominal swelling as well as swelling and some weeping from his lower legs. Has been on 4 mg of Lasix daily and states he is urinating with this. States he had some blood work 2 weeks ago and his kidney function was somewhat off and given his worsening swelling they sent him here for evaluation. Reports some swelling and occasional tightening of the abdomen but no significant pain. No nausea or vomiting. Denies chest pain or shortness of breath. Denies palpitations or syncope. Some weeping to the legs but no fever cough or cold symptoms. PAST MEDICAL HISTORY: As noted above MEDICATIONS: Reviewed medications includes Lasix and aspirin SOCIAL HISTORY: PHYSICAL EXAM: GENERAL: alert and oriented in no acute distress on stretcher Head: normocephalic and atraumatic EYES: No injection, discharge or icterus. PERRL, EOMI. NECK: Trachea midline. Supple. ENT: Mucous membranes pink and moist. LUNGS: Airway patent. No retractions. Breath sounds clear with slightly diminished bases. HEART: Regular rate and rhythm. No chest wall tenderness ABDOMEN: Significantly distended without tenderness. No rebound or guarding. BACK: No midline tenderness, no SI joint tenderness. No bilateral flank tenderness. SKIN: Acyanotic, warm, dry, without rashes EXTREMITIES: 2+ edema to lower extremities with some serous weeping bilaterally. No significant edema. NEUROLOGICAL: No focal deficits. No aphasia. No facial droop or slurred speech. Ambulatory. EK bpm first-degree AV block sinus. No acute ST segment elevation or depression with a QTc of 418. CONTINUOUS CARDIAC MONITORING: was ordered and showed a heart rate of 50s to 60s bpm in first-degree heart block Patient's laboratory studies and imaging reviewed. Differential includes Reactive airway disease, pneumonia, pneumothorax, COPD, CHF, infections, cardiac ischemia, pulmonary embolism, musculoskeletal, gastrointestinal, as well as other pathologies. IMPRESSION/MEDICAL DECISION MAKING: No fevers or abdominal pain. Significant abdominal distention with question of significant fluid overload in conjunction with the bilateral leg swelling. Denies shortness of breath. Cardiac history including history of diminished EF several years ago. Has been on Lasix and outpatient reportedly worsening renal function and swelling. Will obtain abdominal CT to exclude other acute intra- abdominal pathology and see if there is a significant fluid pocket that could possibly be drained. Patient EKG without significant findings will obtain troponin to look for signs of heart strain or injury. Blood work without leukocytosis. Very slight anemia 12.7. Evidence of elevated BUN of 79 and a creatinine of 2.2. No other severe electrolyte abnormalities. Albumin within normal the low end of normal limits at 3.6. BNP severely elevated over 1100. Abdominal CT per radiology with evidence of ascites and some cirrhosis with patient denies alcohol use. Advised patient and and discussed with the hospitalist team for further care and admission here. Discussed with the patient that he may benefit from paracentesis. Doubt intra- abdominal infection however and do not see evidence clearly of cellulitis of the lower extremities and no feel antibiotics indicated at this point. Given his USMAN we will hold off on diuresis until further evaluation by cardiology and nephrology. DIAGNOSIS: Acute heart failure, USMAN, abdominal swelling, leg swelling DISPOSITION: Hospitalist will evaluate Patient was agreeable with this plan. Past Med/Surg History Problem List (Updated 09/11/23 @ 14:58 by Clay Martinez M.D.) Fluid overload, unspecified (Acute) Swelling abdomen (Acute) Ipkea-[id number]-qtnhbwp kidney injury (Acute) Ischemic cardiomyopathy Dyslipidemia ST elevation myocardial infarction (STEMI) of inferolateral wall USMAN (acute kidney injury) Syncope (Acute) Contusion of head (Acute) Syncope Hypertension Diabetes type 2, controlled Medical History Diabetes type 2, controlled Hypertension Family History Brother Myocardial infarction Father Myocardial infarction, Onset Age: 47 Social History Smoking Status: Never smoker Hx Alcohol Use: No Hx Substance Use: No Preferred Language: Maltese Mill [employer] Required: No Beliefs That Will Affect Care: None Current Living Situation: Spouse Feels Safe at Home: Yes Assistive Devices: Glasses Allergies Allergies Allergy/AdvReac Type Severity Reaction Status Date / Time No Known Allergies Allergy Unverified 09/11/23 13:13 Home Meds Home Medications Medication Instructions Recorded Confirmed multivitamin with minerals-folic 2 tab PO QAM ##0 03/10/16 09/11/23 acid 200 mcg chewable tablet (Multivitamin Gummies) metformin 500 mg tablet 500 mg PO QAM 06/01/21 09/11/23 furosemide 40 mg tablet 40 mg PO QAM 09/11/23 09/11/23 losartan 50 mg tablet 50 mg PO QAM 09/11/23 09/11/23 metoprolol succinate 100 mg 100 mg PO QAM 09/11/23 09/11/23 tablet,extended release 24 hr Previous Rx's Medication Instructions Recorded aspirin 81 mg tablet,delayed 81 mg PO QAM #30 tabs 06/01/21 release Results & Data (ED) Vital Signs Vital Signs - 24 hr 09/11/23 10:32 09/11/23 10:39 09/11/23 10:50 Temperature 36.9 C Temperature Source Oral Pulse Rate 60 Pulse Rate [Apical] 61 Pulse Rhythm Regular Pulse Strength Normal Respiratory Rate 22 20 Respiratory Effort / Characteristics Non-Labored Spontaneous Non-Labored Spontaneous Respiratory Depth Normal Normal Respiratory Pattern Regular Blood Pressure 124/77 Blood Pressure [Right Arm] 124/77 Blood Pressure Mean 92 Blood Pressure Mean [Right Arm] 92 Blood Pressure Position Sitting Pulse Oximetry 98 98 97 Oxygen Delivery Method Room Air Room Air Room Air Sepsis Recent Fever Within 48 Hours No Sepsis New/Unexplained Change in Mental Status No Sepsis Action Taken by Nursing No Action Required 09/11/23 12:23 09/11/23 12:44 09/11/23 14:00 Temperature Temperature Source Pulse Rate 57 L Pulse Rate [Apical] 60 58 L Pulse Rhythm Pulse Strength Respiratory Rate 16 Respiratory Effort / Characteristics Non-Labored Spontaneous Respiratory Depth Normal Respiratory Pattern Blood Pressure Blood Pressure [Right Arm] 109/68 118/71 Blood Pressure Mean Blood Pressure Mean [Right Arm] 81 86 Blood Pressure Position Pulse Oximetry 94 95 Oxygen Delivery Method Room Air Room Air Sepsis Recent Fever Within 48 Hours Sepsis New/Unexplained Change in Mental Status Sepsis Action Taken by Nursing Laboratory Data 09/11/23 10:47 09/11/23 10:47 Lab Results 09/11/23 09/11/23 Range/Units 10:47 11:54 WBC 5.73 (4.8-10.8) K/ul RBC 4.58 L (4.70-6.10) M/uL Hgb 12.7 L (14.0-18.0) g/dl Hct 40.1 L (42.0-52.0) % MCV 87.6 (80.0-100.0) fL MCH 27.7 (25.0-34.0) pg MCHC 31.7 L (32.0-36.0) g/dL RDW Std Deviation 50.5 H (36.4-46.3) fL RDW Coeff of Norberto 16.0 H (11.5-14.5) % Plt Count 218 (130-400) K/uL MPV 9.9 (9.4-12.4) fL Immature Gran % (Auto) 0.2 % Neut % (Auto) 84.2 % Lymph % (Auto) 7.2 % [place] % (Auto) 5.4 % Eos % (Auto) 2.3 % Baso % (Auto) 0.7 % Neut # (Auto) 4.83 (1.40-6.50) K/uL Lymph # (Auto) 0.41 L (1.20-3.40) K/uL [place] # (Auto) 0.31 (0.11-0.59) K/uL Eos # (Auto) 0.13 (0.00-0.50) K/uL Baso # (Auto) 0.04 (0.00-0.20) K/uL Immature Gran # (Auto) 0.01 (0.01-0.20) K/uL PT 11.8 (9.0-12.0) Seconds INR 1.1 (0.9-1.1) APTT 31 (21-31) Seconds PTT Ratio 1.2 Sodium 140 (136-145) mmol/L Potassium 4.9 (3.5-5.1) mmol/L Chloride 112 H (98-107) mmol/L Carbon Dioxide 23 (21-32) mmol/L Anion Gap 5 (3-11) BUN 79 H (6-23) mg/dl Creatinine 2.22 H (0.6-1.4) mg/dl Est Cr Clr Drug Dosing 39.2 ml/min Est GFR ( Amer) 33.1 ml/min Est GFR (Non-Af Amer) 28.5 ml/min BUN/Creatinine Ratio 35.6 H (10-20) Glucose 106 H (70-99(Fasting)) mg/dl Calcium 8.6 (8.6-10.3) mg/dl Magnesium 2.5 H (1.7-2.4) mg/dl Total Bilirubin 0.6 (0.2-1.0) mg/dl AST 14 (13-39) U/L ALT 12 (7-52) U/L Alkaline Phosphatase 92 (34-104) U/L Troponin I High Sens 6.2 (0-20) pg/ml B-Natriuretic Peptide 1610 H (0-100) pg/ml Total Protein 7.0 (6.0-8.3) gm/dl Albumin 3.6 (3.4-5.0) gm/dl Globulin 3.4 (2.5-4.0) gm/dl Albumin/Globulin Ratio 1.1 (0.9-2) Adenovirus (PCR) Not Detected (NotDetected) B. pertussis DNA (PCR) Not Detected (NotDetected) B.parapertussis DNA PCR Not Detected (NotDetected) C. pneumoniae DNA (PCR) Not Detected (NotDetected) Coronavirus OC43 (PCR) Not Detected (NotDetected) Coronavirus HKU1 (PCR) Not Detected (NotDetected) Coronavirus 229E (PCR) Not Detected (NotDetected) SARS-CoV-2 (PCR) Not Detected (NotDetected) Coronavirus NL63 (PCR) Not Detected (NotDetected) Human Metapneumovir PCR Not Detected (NotDetected) Influenza Type A (PCR) Not Detected (NotDetected) Influenza Type B (PCR) Not Detected (NotDetected) M. pneumoniae (PCR) Not Detected (NotDetected) Parainfluenza 1 (PCR) Not Detected (NotDetected) Parainfluenza 2 (PCR) Not Detected (NotDetected) Parainfluenza 3 (PCR) Not Detected (NotDetected) Parainfluenza 4 (PCR) Not Detected (NotDetected) RSV (PCR) Not Detected (NotDetected) Entero/Rhino (PCR) Not Detected (NotDetected) Administered Medications Discontinued Medications Furosemide (Furosemide 40 Mg/4 Ml Vial) 40 mg IV ONE ONE Stop: 09/11/23 13:03 Last Admin: 09/11/23 13:53 Dose: 40 mg Documented By: [facility] [place] Imaging Data Radiologist's Impression: Chest X-Ray 09/11/23 10:32 XR chest 1V portable CLINICAL HISTORY: swelling COMPARISON STUDY: Chest radiograph May 30, 2021. FINDINGS: Low lung volumes are unchanged. There is no pneumothorax or pleural effusion. Cardiomegaly is unchanged. There is pulmonary vascular congestion without overt pulmonary edema. IMPRESSION: Cardiomegaly with pulmonary vascular congestion. ACT 112: Negative or not required by law. Electronically signed by: Remberto Sullivan M.D. 09/11/2023 11:13 AM Abdomen/Pelvis CT 09/11/23 10:[address] WITHOUT CONTRAST CT DOSE: 1631.04 mGy.cm HISTORY: Abdominal swelling. TECHNIQUE: Multiaxial CT images of the abdomen and pelvis were performed without contrast. A dose lowering technique was utilized adhering to the principles of ALARA. COMPARISON STUDY: None. FINDINGS: Small bilateral pleural effusions. There is severe body wall edema. No acute fractures. A nodular contour to the liver consistent with cirrhosis. The spleen is mildly enlarged measuring 13 cm in length. No definite hepatic masses. The unenhanced gallbladder, pancreas, adrenal glands, and kidneys are unremarkable. No hydronephrosis. Moderate bilateral perinephric edema. Normal caliber abdominal aorta. No retroperitoneal or pelvic lymphadenopathy. The bladder appears unremarkable. Suboptimal evaluation for bowel pathology due to the lack of intravenous and oral contrast. However, there is no definite bowel wall thickening or obstruction. There is a large amount of ascites. The appendix is partially obscured by the ascites but appears unremarkable. IMPRESSION: 1. Large amount of ascites. 2. Severe body wall edema. 3. Small bilateral pleural effusions. 4. Cirrhotic liver with mild splenomegaly. 5. No definite bowel wall thickening or obstruction. ACT 112: Negative or not required by law. Electronically signed by: Shan Drummond M.D. 09/11/2023 12:14 PM Discharge Plan Visit Data Chief Complaint: Referred by Doctor Stated Complaint: FLUID RETENTION ED Provider: Clay Martinez Discharge Problem: Swelling abdomen, Ckcuy-[id number] kidney injury, Fluid overload, unspecified Patient Disposition: Being Evaluated by Hospitalist Forms Stand Alone Forms: [facility] Prescriptions Prescriptions: No Action multivit with min-folic acid [Multivitamin Gummies] 200 mcg Tablet,Chewable 2 tab PO QAM Qty: 0 metformin 500 mg tablet 500 mg PO QAM aspirin 81 mg Tablet,Delayed Release (Dr/Ec) 81 mg PO QAM Qty: 30 0RF furosemide 40 mg tablet 40 mg PO QAM losartan 50 mg tablet 50 mg PO QAM metoprolol succinate 100 mg tablet extended release 24 hr 100 mg PO QAM Referrals Referrals: Dunia Smalls MD [Primary Care Provider] - Discharge Problem: Pmoze-nj-inpgxbq kidney injury Qualifiers: Acute renal failure type: unspecified Fluid overload, unspecified Qualifiers: Hypervolemia type: other Qualified Code(s): E87.79 - Other fluid overload
--- NOTE | 2023-09-11 11:15 | XRay Report ---
XR chest 1V portable CLINICAL HISTORY: swelling COMPARISON STUDY: Chest radiograph May 30, 2021. FINDINGS: Low lung volumes are unchanged. There is no pneumothorax or pleural effusion. Cardiomegaly is unchanged. There is pulmonary vascular congestion without overt pulmonary edema. IMPRESSION: Cardiomegaly with pulmonary vascular congestion. ACT 112: Negative or not required by law. Electronically signed by: Remberto Sullivan M.D. 09/11/2023 11:13 AM
[2023-09-11 11:16] LABS: Albumin Globulin Ratio 1.1 (0.9-2); Albumin Level 3.6 gm/dl (3.4-5.0); BUN Creatinine Ratio 35.6 (10-20); Bilirubin,Total 0.6 mg/dl (0.2-1.0); Calcium 8.6 mg/dl (8.6-10.3); Creatinine Clr Calc Pharmacy 39.2 ml/min; Est GFR (African American) 33.1 ml/min; Est GFR (Non-African American) 28.5 ml/min; Globulin 3.4 gm/dl (2.5-4.0); Magnesium 2.5 mg/dl (1.7-2.4); Potassium 4.9 mmol/L (3.5-5.1)
[2023-09-11 11:21] LABS: Troponin I High Sensitivity 6.2 pg/ml (0-20)
[2023-09-11 11:30] LABS: INR 1.1 (0.9-1.1); Partial Thromboplastin Ratio 1.2; Partial Thromboplastin Time 31 Seconds (21-31); Prothrombin Time 11.8 Seconds (9.0-12.0)
--- NOTE | 2023-09-11 12:16 | CT Scan Report ---
ABDOMEN AND PELVIS CT WITHOUT CONTRAST CT DOSE: 1631.04 mGy.cm HISTORY: Abdominal swelling. TECHNIQUE: Multiaxial CT images of the abdomen and pelvis were performed without contrast. A dose lo wering technique was utilized adhering to the principles of ALARA. COMPARISON STUDY: None. FINDINGS: Small bilateral pleural effusions. There is severe body wall edema. No acute fractures. A n odular contour to the liver consistent with cirrhosis. The spleen is mildly enlarged measuring 13 cm in length. No definite hepatic masses. The unenhanced gallbladder, pancreas, adrenal glands, and kidn eys are unremarkable. No hydronephrosis. Moderate bilateral perinephric edema. Normal caliber abdomin al aorta. No retroperitoneal or pelvic lymphadenopathy. The bladder appears unremarkable. Suboptimal evaluation for bowel pathology due to the lack of intravenous and oral contrast. However, there is no definite bowel wall thickening or obstruction. There is a large amount of ascites. The appendix is p artially obscured by the ascites but appears unremarkable. IMPRESSION: 1. Large amount of ascites. 2. Severe body wall edema. 3. Small bilateral pleural effusions. 4. Cirrhotic liver with mild splenomegaly. 5. No definite bowel wall thickening or obstruction. ACT 112: Negative or not required by law. Electronically signed by: Shan Drummond M.D. 09/11/2023 12:14 PM
--- NOTE | 2023-09-11 12:33 | Electrocardiogram Report ---
Test Reason : Blood Pressure : / mmHG Vent. Rate : 061 BPM Atrial Rate : 061 BPM P-R Int : 286 ms QRS Dur : 082 ms QT Int : 416 ms P-R-T Axes : 027 124 185 degrees QTc Int : 418 ms Sinus rhythm with 1st degree A-V block Low voltage QRS Possible Old Anterolateral infarct (cited on or before 11-SEP-2023) Diffuse Minor Nonspecific T wave abnormality Abnormal ECG When compared with ECG of 31-MAY-2021 15:54, ST depression in Lateral leads no longer present T-wave inversion in Inferolateral leads no longer present Confirmed by Sixto David ([id number]) on 09/11/2023 12:33:10 PM Referred By: REFERRED SELF Confirmed By:Sixto David
[2023-09-11 13:09] LABS: Adenovirus PCR Not Detected (NotDetected); Bordetella parapertussis PCR Not Detected (NotDetected); Bordetella pertussis PCR Not Detected (NotDetected); Chlamydia pneumoniae PCR Not Detected (NotDetected); Coronavirus 229E PCR Not Detected (NotDetected); Coronavirus CoV-2 (COVID19)PCR Not Detected (NotDetected); Coronavirus HKU1 PCR Not Detected (NotDetected); Coronavirus NL63 PCR Not Detected (NotDetected); Coronavirus OC43PCR Not Detected (NotDetected); Human Metapneumovirus PCR Not Detected (NotDetected); Influenza A PCR Not Detected (NotDetected); Influenza B PCR Not Detected (NotDetected); Mycoplasma pneumoniae PCR Not Detected (NotDetected); Parainfluenza Virus 1 PCR Not Detected (NotDetected); Parainfluenza Virus 2 PCR Not Detected (NotDetected); Parainfluenza Virus 3 PCR Not Detected (NotDetected); Parainfluenza Virus 4 PCR Not Detected (NotDetected); Respiratory Syncytial VirusPCR Not Detected (NotDetected); Rhinovirus/Enterovirus PCR Not Detected (NotDetected)
[2023-09-11] MEDS: FUROSEMIDE 40 MG/4 ML VIAL IV ONE (13:53)
--- NOTE | 2023-09-11 15:38 | History & Physical Report ---
Date of Service September 11, 2023 Assessment & Plan (1) Fluid overload, unspecified: Plan: 73-year-old gentleman with history of CAD, status post stent placement, diabetes type 2, hypertension, CKD stage III, obesity, presenting with progressive weight gain and leg edema times few months. Volume overload, ascites, lower extremity edema likely multifactorial: Acute on chronic CHF with reduced ejection fraction Last echo showing EF of 40%, right ventricular systolic dysfunction Repeat echocardiogram Discussed with nephrology service, recommend Lasix 40 mg IV every 8 hours with albumin every 8 hours Cardiology was also consulted Hold losartan as BP on the lower side, hold metoprolol as heart rate in the 50s Liver cirrhosis Seen on CT abdomen and pelvis, new diagnosis LFTs okay Hold off on paracentesis in light of marginal blood pressure and acute kidney injury GI consulted for further recommendations Acute kidney injury on CKD stage III Management per above Sinus bradycardia Heart rate 50s Hold usual metoprolol History of CAD, status post stent placement Hypertension Continue aspirin Losartan, metoprolol on hold DVT prophylaxis SCDs for now CODE STATUS full code Disposition Lives with family plan of care discussed with patient and his at bedside in detail and at length all questions answered they are understanding, agreeable, comfortable with the plan of care History of Present Illness Primary Care Provider: Dunia Smalls MD 73-year-old gentleman with history of CAD, status post stent placement, diabetes type 2, hypertension, CKD stage III, obesity, presenting with progressive weight gain and leg edema times few months. Patient reports around 50 pound weight gain in the past 3 months, associated with abdominal distention and leg swelling. No chest pain, shortness of breath, fevers or chills. He saw his primary care physician today for above symptoms. Creatinine was found to have increased from baseline of 1.7, currently 2.2. He was directed to the emergency room for further evaluation management. At the ER, patient received with stable vital signs overall. BNP [address] abdomen and pelvis showing large volume ascites, with liver cirrhosis On exam, patient seen resting in bed, comfortable, sitting up, on room air, not in distress. Denies active chest pain, shortness of breath, palpitations, dizziness. No other new symptom Allergies Allergy/AdvReac Type Severity Reaction Status Date / Time No Known Allergies Allergy Unverified 09/11/23 13:13 Home Medications Medication Instructions Recorded Confirmed Type multivitamin with minerals-folic 2 tab PO QAM ##0 03/10/16 09/11/23 History acid 200 mcg chewable tablet (Multivitamin Gummies) aspirin 81 mg tablet,delayed 81 mg PO QAM #30 tabs 06/01/21 09/11/23 Rx release metformin 500 mg tablet 500 mg PO QAM 06/01/21 09/11/23 History furosemide 40 mg tablet 40 mg PO QAM 09/11/23 09/11/23 History losartan 50 mg tablet 50 mg PO QAM 09/11/23 09/11/23 History metoprolol succinate 100 mg 100 mg PO QAM 09/11/23 09/11/23 History tablet,extended release 24 hr Past Med/Surg History Problem List (Updated 09/11/23 @ 14:58 by Clay Martinez M.D.) Fluid overload, unspecified (Acute) Swelling abdomen (Acute) Dntxt-ef-ifltiop kidney injury (Acute) Ischemic cardiomyopathy Dyslipidemia ST elevation myocardial infarction (STEMI) of inferolateral wall USMAN (acute kidney injury) Syncope (Acute) Contusion of head (Acute) Syncope Hypertension Diabetes type 2, controlled Medical History Diabetes type 2, controlled Hypertension Family History Brother Myocardial infarction Father Myocardial infarction, Onset Age: 47 Social History Smoking Status: Never smoker Hx Alcohol Use: No Hx Substance Use: No Preferred Language: 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 Beliefs That Will Affect Care: None Current Living Situation: Spouse Feels Safe at Home: Yes Assistive Devices: Glasses Review of Systems Review of Systems: all noted and negative except for above Physical Exam Physical Exam: General- oriented x 3, not in distress, speaks in sentences with no effort or accessory muscle use Eyes- anicteric Neck- no JVD Lungs- clear breath sounds bilaterally, no rales/wheezes Heart- normal rate, regular rhythm; no murmurs Abdomen- normal bowel sounds, Distended, tense ascites, soft, nontender Extremities- Grade 2 lower extremity edema with mild erythema but no warmth, tenderness Neuro- alert, oriented x 3; no gross focal neurologic deficits Skin- warm & dry Results & Data Results & Data Vital Signs (Past 12 Hours) Vital Signs Temp Pulse Pulse Resp BP BP Pulse Ox 09/11/23 14:00 58 L 118/71 95 09/11/23 12:44 57 L 09/11/23 12:23 60 16 109/68 94 09/11/23 10:50 97 09/11/23 10:39 61 20 124/77 98 09/11/23 10:32 36.9 C 60 22 124/77 98 O2 Del Method 09/11/23 14:00 Room Air 09/11/23 12:44 09/11/23 12:23 Room Air 09/11/23 10:50 Room Air 09/11/23 10:39 Room Air 09/11/23 10:32 Room Air all noted and reviewed including below Code Status & VTE Plan VTE Prophylaxis Plan VTE Prophylaxis will be ordered: Yes (1) Fluid overload, unspecified Hypervolemia type: other Qualified Code(s): E87.79 - Other fluid overload
--- NOTE | 2023-09-11 16:13 | Gastrointestinal Consultation ---
Date of Consultation September 11, 2023 Assessment & Plan (1) Cirrhosis: (2) Ascites: Plan Seems likely to be cardiac vs fatty liver related cirrhosis. -Consider cardiology evaluation & nephrology evaluation; Patient will need diuretic management. Consider repeat echo if not recently done. -Can obtain US guided paracentesis with fluid studies when able. Per IR, it does seem as though this would not happen until Thursday at earliest. -Further ongoing cirrhosis management would be performed in the outpatient setting once acute issues have been addressed. Supervising Physician Co-Signing Physician Notes Agree withagree with Tarah BEST as above Interviewed and examined patient and agree with above Abdomen: soft distended positive fluid Wave Continue current therapy and supportive care Patient will undergo ultrasound guided paracentesis on Thursday, with fluid studies History of Present Illness Reason for Consultation: Cirrhosis History of Present Illness Patient is a 73 yo male with several months of progressive volume overload as an outpatient. He notes his abdomen became more and more distended and eventually he presented to the ED. In the ED, he was noted to have a CT scan of the abdomen/pelvis with findings of bilateral pleural effusions, a large amount of abdominal ascites, & body wall edema along with cirrhosis. He has a history of mitral and tricuspid valve regurgitation and follows with Dr. Milan of cardiology for ischemic cardiomyopathy. Last echo in our system shows an EF of 40% along with MR & TR but this was from 2021. Patient believes he had one outpatient with Dr. Milan in 2022. He has a total bili of 0.6, AST 14, ALT 12. He notes he takes Lasix 40 mg daily at home. He denies being diagnosed with cirrhosis in the past. Denies alcohol use. No pertinent family history of liver disease. Allergies Allergy/AdvReac Type Severity Reaction Status Date / Time No Known Allergies Allergy Unverified 09/11/23 13:13 Home Medications Medication Instructions Recorded Confirmed Type multivitamin with minerals-folic 2 tab PO QAM ##0 03/10/16 09/11/23 History acid 200 mcg chewable tablet (Multivitamin Gummies) aspirin 81 mg tablet,delayed 81 mg PO QAM #30 tabs 06/01/21 09/11/23 Rx release metformin 500 mg tablet 500 mg PO QAM 06/01/21 09/11/23 History furosemide 40 mg tablet 40 mg PO QAM 09/11/23 09/11/23 History losartan 50 mg tablet 50 mg PO QAM 09/11/23 09/11/23 History metoprolol succinate 100 mg 100 mg PO QAM 09/11/23 09/11/23 History tablet,extended release 24 hr Patient History Family History Brother Myocardial infarction Father Myocardial infarction, Onset Age: 47 Social History Smoking Status: Never smoker Hx Alcohol Use: No Hx Substance Use: No Preferred Language: Slovak Criminal Court Judge Required: No Beliefs That Will Affect Care: None Current Living Situation: Spouse Feels Safe at Home: Yes Assistive Devices: Glasses Review of Systems Constitutional: no fever and no chills Respiratory: no cough and no dyspnea Cardiovascular: no chest pain Gastrointestinal: + abdominal pain Physical Exam Constitutional: well developed Respiratory: normal respiratory effort Cardiovascular: Rate/Rhythm: regular rate Gastrointestinal (Abdomen): normal bowel sounds, soft, nontender, no hepatosplenomegaly Psychiatric: Orientation: alert and oriented x 3 Results & Data Vital Signs (Past 12 Hours) Vital Signs Temp Pulse Pulse Resp BP BP Pulse Ox 09/11/23 14:00 58 L 118/71 95 09/11/23 12:44 57 L 09/11/23 12:23 60 16 109/68 94 09/11/23 10:50 97 09/11/23 10:39 61 20 124/77 98 09/11/23 10:32 36.9 C 60 22 124/77 98 O2 Del Method 09/11/23 14:00 Room Air 09/11/23 12:44 09/11/23 12:23 Room Air 09/11/23 10:50 Room Air 09/11/23 10:39 Room Air 09/11/23 10:32 Room Air PG Care Time/CCT Total # of Minutes Spent Total Time Spent with Patient: Total time spent is greater than 50% in coordination of care (as documented) at patient's floor/unit and/or counseling patient: Coding Level of Care Code 03744 INT INP/OBS CARE 3/75MIN Diagnoses Cirrhosis K74.60 Ascites R18.8
[2023-09-11] MEDS: ALBUMIN 25% 25 GM/100 ML VIAL IV SCH (16:28)
[2023-09-11] MEDS ORDERED: ACETAMINOPHEN 325 MG TAB PO PRN (18:28)
[2023-09-11] MEDS ORDERED: GLUCOSE 10 TAB/TUBE PO PRN (19:11)
[2023-09-11] MEDS ORDERED: DEXTROSE 50% 50 ML SYRINGE IV PRN (19:11)
[2023-09-11] MEDS ORDERED: GLUCOSE 40% GEL 15 GM TUBE PO PRN (19:11)
[2023-09-11] MEDS ORDERED: CARBOHYDRATES FOR HYPOGLYCEMIA PO PRN (19:11)
[2023-09-11] MEDS ORDERED: GLUCAGON FOR INJ 1 MG VIAL SQ PRN (19:11)
[2023-09-11 19:19] LABS: BUN Creatinine Ratio 36.3 (10-20); Calcium 9.1 mg/dl (8.6-10.3); Creatinine Clr Calc Pharmacy 40.5 ml/min; Est GFR (African American) 34.4 ml/min; Est GFR (Non-African American) 29.7 ml/min
[2023-09-11] MEDS: FUROSEMIDE 40 MG/4 ML VIAL IV SCH (20:09)
[2023-09-11] MEDS: INSULIN ASPART PER UNIT CHARGE SC SCH (20:21)
[2023-09-12] MEDS: ALBUMIN 25% 25 GM/100 ML VIAL IV SCH (05:35)
[2023-09-12 06:52] LABS: Basophils # (auto) 0.04 K/uL (0.00-0.20); Basophils % (auto) 0.8 %; Hematocrit (blood only) 35.9 % (42.0-52.0); Hemoglobin 11.3 g/dl (14.0-18.0); Immature Granulocytes # (auto) 0.01 K/uL (0.01-0.20); Immature Granulocytes % (auto) 0.2 %; Lymphocytes # (auto) 0.43 K/uL (1.20-3.40); Lymphocytes % (auto) 8.7 %; Mean Corpuscular Hemoglobin 27.1 pg (25.0-34.0); Mean Corpuscular Hgb Conc 31.5 g/dL (32.0-36.0); Mean Corpuscular Volume 86.1 fL (80.0-100.0); Mean Platelet Volume 10.2 fL (9.4-12.4); Monocytes # (auto) 0.29 K/uL (0.11-0.59); Monocytes % (auto) 5.9 %; Neutrophils # (auto) 4.06 K/uL (1.40-6.50); Neutrophils % (auto) 82.4 %; Platelet Count 216 K/uL (130-400); RDW Coefficient of Variation 15.8 % (11.5-14.5); RDW Standard Deviation 49.5 fL (36.4-46.3); Red Blood Count 4.17 M/uL (4.70-6.10); White Blood Count 4.93 K/ul (4.8-10.8)
--- NOTE | 2023-09-12 06:52 | Cardiology Consultation ---
Date of Consultation September 12, 2023 Assessment & Plan (1) Cirrhosis: (2) Ascites: (3) Ischemic cardiomyopathy: (4) Ctrgd-eg-[id number] kidney injury: Plan Impression: 73 year old male with history of ischemic cardiomyopathy presents with acute fluid retention primarily located in the abdomen and legs. CT of the abdomen/pelvis revealing large amt of ascites; findings concerning for Cirrhosis. PLAN: Cirrhosis/Ascites: With evidence of hepatic congestion recommend proceeding with secondary workup per GI- possible plans for paracentesis on Thursday. Appreciate GI recommendations. Ischemic Cardiomyopathy: CKD: Echo showing improvement in LVEF (50-55%), previously 45%. HS troponin negative x1. -Currently being diuresed per the recommendations of nephrology with IV Lasix 40 mg q8 hrs + Albumin. -2g sodium diet. Daily standing weights. Strict I/O. Replace electrolytes to a K goal of 4.0 and mag goal of 2.0 -Losartan and metoprolol on hold due to hypotension and bradycardia which has been improving. Case discussed with Dr. Vaughan. Further recommendations pending assessment. I spent a total of 60 minutes on the date of service in preparation, delivery, and documentation of the care provided to the patient excluding any time spent in the performance of separately billed services. MONA Veras Department of Cardiology, [facility] This chart was completed in part utilizing Speech Voice Recognition Software. Grammatical errors, random word insertions, pronoun errors, and incomplete sentences are an occasional consequence of this system due to software limitations, ambient noise, and hardware issues. Any formal questions or concerns about the content, text, or information contained within the body of this dictation should be directly addressed to the provider for clarification. Supervising Physician Co-Signing Physician Notes I have personally performed a history and physical examination on the patient. I have reviewed the advance practitioner's documentation, and I agree with, and take responsibility for the plan of care. 73-year-old patient admitted with progressive fluid retention over a 3-month period with significant abdominal ascites and lower extremity edema. History of ischemic cardiomyopathy with low normal LV systolic function and mild to moderate mitral regurgitation. Most recent echocardiogram demonstrating improvement of LV function. Nephrology input appreciated. Continue IV diuretic therapy. Monitor fluid balance, daily weight, GFR, and electrolytes. Patient is not a candidate for Aldactone due to renal insufficiency. Losartan and metoprolol currently on hold. Recommend restart metoprolol at reduced dose, 25 mg twice daily (outpatient dose 100 mg daily). Monitor telemetry. GI evaluation regarding cirrhosis and possible paracentesis 09/14/2023. I spent a total of 30 minutes on the date of service in preparation, delivery, and documentation of the care provided to this patient, excluding any time spent in the performance of separately billed services. History of Present Illness Reason for Consultation: Acute on chronic CHF Requesting Physician: Ronda duran Attending Physician: Aleksey Arreola MD History of Present Illness 73-year-old male who presented to [facility] due to a 50 pound weight gain, abdominal distention, and lower extremity edema x 3 months. Weight documented 12/2022 was 233 pounds, now 281>>285 (08/2023) per outpatient records. Evaluated by his PCP yesterday who suggested ED evaluation CT of the abdomen and pelvis in the ED showing large volume ascites with liver cirrhosis. Repeat echocardiogram showed a low normal LVEF of 50 to 55% with moderate anterior and anteroseptal hypokinesis. Mild to moderate MR Nephrology was consulted who recommended 40 mg of IV Lasix every 8 hours with albumin every 8 hours. Losartan was held due to low blood pressures Metoprolol was also held due to low heart rates in the 50s. Upon entrance into the room patient resting in the chair eating breakfast. No acute concerns. Denies chest pain or shortness of breath. Main concern is regarding abdominal distention. Feels full and bloated. Ongoing lower extremity edema, per the patient this is improved. Has chronic orthopnea. No PND. No palpitations or lightheadedness. Tele: SB/SR 50-70s I/O: -275 mL Weight: 131. 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 Milan Past medical history: Coronary artery disease History of inferior STEMI status post OBIE to the mid RCA (3.0 x 26 mm Rampart), 05/28/2021; diffuse coronary disease otherwise Repeat staged PCI of the mid LAD (2.75 x 28 mm Xience), 05/31/2021 Ischemic cardiomyopathy, LVEF 40 to 45% per echo 05/28/2021 following inferior STEMI Chronic sinus bradycardia Hypertension Hyperlipidemia, statin intolerance Type 2 diabetes CKD stage III Liver cirrhosis Allergies Allergy/AdvReac Type Severity Reaction Status Date / Time No Known Allergies Allergy Unverified 09/11/23 13:13 Home Medications Medication Instructions Recorded Confirmed Type multivitamin with minerals-folic 2 tab PO QAM ##0 03/10/16 09/11/23 History acid 200 mcg chewable tablet (Multivitamin Gummies) aspirin 81 mg tablet,delayed 81 mg PO QAM #30 tabs 06/01/21 09/11/23 Rx release metformin 500 mg tablet 500 mg PO QAM 06/01/21 09/11/23 History furosemide 40 mg tablet 40 mg PO QAM 09/11/23 09/11/23 History losartan 50 mg tablet 50 mg PO QAM 09/11/23 09/11/23 History metoprolol succinate 100 mg 100 mg PO QAM 09/11/23 09/11/23 History tablet,extended release 24 hr Patient History Family History Brother Myocardial infarction Father Myocardial infarction, Onset Age: 47 Social History Smoking Status: Never smoker Hx Alcohol Use: No Hx Substance Use: No Preferred Language: Czech Communication Ability: Effective Director Biostatistics Required: No Beliefs That Will Affect Care: None Current Living Situation: Spouse Feels Safe at Home: Yes Assistive Devices: Denture - Upper, Denture - Lower and Glasses Review of Systems Review of Systems: All systems reviewed & are unremarkable except as noted in Subjective Physical Exam Constitutional: well developed, well nourished and + obese; no acute distress Eyes: PERRL, conjunctivae normal, anicteric sclerae Neck: normal visual inspection and trachea midline Respiratory: normal respiratory effort; no respiratory distress and no cough Auscultation: + diminished lung sounds; no rales, no rhonchi and no wheezes Cardiovascular: Rate/Rhythm: regular rate and regular rhythm Heart Sounds: normal S1 and normal S2; no murmur Vessels: + JVD Extremities: + edema (+2-3 BLLE pitting edema with venous changes ) Gastrointestinal (Abdomen): Inspection/Auscultation: + abdomen distended Percussion/Palpation: + ascites and + abdomen firm; abdomen nontender Neurologic: PERRL, EOMI, accommodation nl, no face palsy, no dysarthria Psychiatric: A+Ox3, euthymic affect Results & Data Vital Signs (Past 12 Hours) Vital Signs Temp Pulse Pulse Resp BP Pulse Ox O2 Del Method 09/12/23 03:42 36.5 C 63 18 96/57 L 90 Room Air 09/11/23 23:30 36.5 C 60 18 105/68 96 Room Air 09/11/23 23:18 54 L 09/11/23 21:21 Room Air 09/11/23 20:22 63 103/67 09/11/23 18:53 36.3 C L 09/11/23 18:42 57 L Laboratory Results Cardiac Enzymes 09/11/23 Range/Units 10:47 AST 14 (13-39) U/L Troponin I High Sens 6.2 (0-20) pg/ml B-Natriuretic Peptide 1610 H (0-100) pg/ml Coagulation 09/11/23 Range/Units 10:47 PT 11.8 (9.0-12.0) Seconds APTT 31 (21-31) Seconds B-Natriuretic Peptide 1610 H (0-100) pg/ml CBC 09/11/23 09/12/23 Range/Units 10:47 06:26 WBC 5.73 4.93 (4.8-10.8) K/ul RBC 4.58 L 4.17 L (4.70-6.10) M/uL Hgb 12.7 L 11.3 L (14.0-18.0) g/dl Hct 40.1 L 35.9 L (42.0-52.0) % Plt Count 218 216 (130-400) K/uL Neut # (Auto) 4.83 4.06 (1.40-6.50) K/uL Lymph # (Auto) 0.41 L 0.43 L (1.20-3.40) K/uL [place] # (Auto) 0.31 0.29 (0.11-0.59) K/uL Eos # (Auto) 0.13 0.10 (0.00-0.50) K/uL Baso # (Auto) 0.04 0.04 (0.00-0.20) K/uL Comprehensive Metabolic Panel 09/11/23 09/11/23 Range/Units 10:47 18:39 Sodium 140 141 (136-145) mmol/L Potassium 4.9 5.0 (3.5-5.1) mmol/L Chloride 112 H 112 H (98-107) mmol/L Carbon Dioxide 23 22 (21-32) mmol/L BUN 79 H 78 H (6-23) mg/dl Creatinine 2.22 H 2.15 H (0.6-1.4) mg/dl Glucose 106 H 99 (70-99(Fasting)) mg/dl Calcium 8.6 9.1 (8.6-10.3) mg/dl AST 14 (13-39) U/L ALT 12 (7-52) U/L Alkaline Phosphatase 92 (34-104) U/L Total Protein 7.0 (6.0-8.3) gm/dl Albumin 3.6 (3.4-5.0) gm/dl Intake and Output 09/11/23 09/12/23 09/12/23 22:59 06:59 14:59 Intake Total 100 / 700 600 / 700 Output Total 400 / 975 575 / 975 Balance -300 / -275 25 / -275 Intake: IV 100 / 200 100 / 200 Albumin 25% 25 gm In 100 ml @ 100 / 200 100 / 200 50 mls/hr IV Q8H [facility] Rx#: [id number] Oral 500 / 500 Output: Urine 400 / 975 575 / 975 Other: Weight 131.2 kg 127.822 kg Weight Measurement Method Built in Bedscale Standing Scale Diagnostic Findings Cardiac cath 05/28/2021 Summary: 1. Inferolateral STEMI/acute subtotal occlusion of mid RCA 2. Severe non-culprit coronary artery disease -80% diffuse proximal to mid LAD disease. Small distal LAD with 90% stenosis at apex. Small OM2 70% proximal, small to medium OM3 95% proximal. R-PLB2 with 80% proximal stenosis 3. Elevated intracardiac filling pressure 4. Successful PCI of mid to distal RCA with single drug-eluting stent (3.0 x 26 mm Matthieu; postdilated with 3.5 NC). Staged PCI 05/31/2021 1. Successful PCI of proximal to mid LAD with single drug-eluting stent (2.75 x 28 mm Xience; postdilated with 4.0 NC proximally). Echo 05/28/2021 inpatient [facility] LVEF 40 to 45% Mild global hypokinesis of the LV Mild concentric LVH RV moderately dilated with reduced systolic function Moderate MR Moderate TR RV systolic pressure elevated at 40 to 50 mmHg (4) Zjjsp-lg-[id number] kidney injury Acute renal failure type: unspecified
--- NOTE | 2023-09-12 07:20 | Nephrology Consultation ---
Date of Consultation September 12, 2023 Assessment & Plan (1) Zrnsc-pk-grysqea kidney injury: baseline creatinine 1.5; presenting creatinine 2.2, basically unchanged since admission. presented w/ massive volume OL including 50 lb wt gain and w/ hypotension For OP GI mgt of liver cirrhosis; for possible paracentesis IR on 09/13; cardiology does not believe this is active cardiac issue; LV function actually better than prior -until then continue current lasix/albumin dosing >> given improved BP, will continue lasix only 40 mg IV dosed to not disrupt sleep -will evaluate proteinuria status, for nephritic/nephrotic syndrome, although this presentation w/ massive ascites would not really be typical and albumin is 3.6 despite massive overload >standing weight appreciated and needs to happen DAILY >cont <2 gm daily Na diet and 1.5L FR -low threshold to start miguelina receptor antagonist History of Present Illness Reason for Consultation: USMAN on CKD Requesting Physician: Dr Arreola Attending Physician: Aleksey Arreola MD History of Present Illness 73 y/o M whom I'm asked to see for USMAN on CKD was admitted yesterday for acute HF exacerbation after presenting w/ progressive vol OL over past several weeks and USMAN w/ creat 2.2. 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 Does not follow w/ OP nephrology. Patient reports around 50 pound weight gain w/ increased abd girth, LE edema for past 3 mos. Referred to ER for further mgt. along w/ USMAN, noted to have ascites w/ liver cirrhosis on imaging. He was started on 40mg lasix IV q8hr; may be able to stop albumin as BP has improved somewhat No chest pain, shortness of breath, fevers or chills. wt gain as above. Denies orthopnea though he's slept in chair for years. no nsaid use. drinks minimal water in a day but does have 8 cups of coffee. denies hx of EtOH use. at bedside today. after 2 lasix doses his leg edema is per him and much improved, much less taut Allergies Allergy/AdvReac Type Severity Reaction Status Date / Time No Known Allergies Allergy Unverified 09/11/23 13:13 Home Medications Medication Instructions Recorded Confirmed Type multivitamin with minerals-folic 2 tab PO QAM ##0 03/10/16 09/11/23 History acid 200 mcg chewable tablet (Multivitamin Gummies) aspirin 81 mg tablet,delayed 81 mg PO QAM #30 tabs 06/01/21 09/11/23 Rx release metformin 500 mg tablet 500 mg PO QAM 06/01/21 09/11/23 History furosemide 40 mg tablet 40 mg PO QAM 09/11/23 09/11/23 History losartan 50 mg tablet 50 mg PO QAM 09/11/23 09/11/23 History metoprolol succinate 100 mg 100 mg PO QAM 09/11/23 09/11/23 History tablet,extended release 24 hr Patient History Medical History (Updated 09/12/23 @ 14:42 by Katie Oliveira MD, PhD) CKD (chronic kidney disease) stage 3, GFR 30-59 ml/min Ischemic cardiomyopathy ST elevation myocardial infarction (STEMI) of inferolateral wall Diabetes type 2, controlled Surgical History (Updated 09/12/23 @ 14:42 by Katie Oliveira MD, PhD) History of coronary artery stent placement Family History Brother Myocardial infarction Father Myocardial infarction, Onset Age: 47 Social History Smoking Status: Never smoker Hx Alcohol Use: No Hx Substance Use: No Preferred Language: Syriac Communication Ability: Effective Lithostripper Required: No Beliefs That Will Affect Care: None Current Living Situation: Spouse Feels Safe at Home: Yes Assistive Devices: Denture - Upper, Denture - Lower and Glasses Review of Systems 2 Review of Systems: All systems reviewed & are unremarkable except as noted in HPI & below Physical Exam 2 Constitutional: well developed and well nourished; no acute distress (sitting up in chair on RA) Eyes: EOM intact bilaterally ENMT: Ears: no external ear abnormality Nose: no external nose abnormality Mouth: + dry oral mucous membranes Neck: no nuchal rigidity Respiratory: normal respiratory effort Auscultation: + diminished lung sounds (markedly); no crackles and no wheezes Cardiovascular: Rate/Rhythm: regular rate and regular rhythm Extremities: + edema (4+ to hips) Gastrointestinal (Abdomen): Inspection/Auscultation: + abdomen distended and normal bowel sounds Percussion/Palpation: abdomen soft, + ascites and + dullness to percussion; abdomen nontender Musculoskeletal: Extremities: strength 5/5 throughout Skin: no rashes, warm and dry (some broken skin/ skin breakdown BL pretibial) Neurologic: leija, fluent speech, no tremor Results & Data Vital Signs (Past 12 Hours) Vital Signs Temp Pulse Pulse Resp BP Pulse Ox O2 Del Method 09/12/23 03:42 36.5 C 63 18 96/57 L 90 Room Air 09/11/23 23:30 36.5 C 60 18 105/68 96 Room Air 09/11/23 23:18 54 L 09/11/23 21:21 Room Air 09/11/23 20:22 63 103/67 Laboratory Results 09/12/23 06:26 09/12/23 06:[address] a/p non con FINDINGS: Small bilateral pleural effusions. There is severe body wall edema. No acute fractures. A nodular contour to the liver consistent with cirrhosis. The spleen is mildly enlarged measuring 13 cm in length. No definite hepatic masses. The unenhanced gallbladder, pancreas, adrenal glands, and kidneys are unremarkable. No hydronephrosis. Moderate bilateral perinephric edema. Normal caliber abdominal aorta. No retroperitoneal or pelvic lymphadenopathy. The bladder appears unremarkable. Suboptimal evaluation for bowel pathology due to the lack of intravenous and oral contrast. However, there is no definite bowel wall thickening or obstruction. There is a large amount of ascites. The appendix is partially obscured by the ascites but appears unremarkable. IMPRESSION: 1. Large amount of ascites. 2. Severe body wall edema. 3. Small bilateral pleural effusions. 4. Cirrhotic liver with mild splenomegaly. 5. No definite bowel wall thickening or obstruction. cxr Cardiomegaly with pulmonary vascular congestion. TTE 09/10 > EF 50-55%; moderate ant a-sept hypokin; m-mod MR; else valves ok; no LVH (1) Dpiqc-om-tljdefj kidney injury Acute renal failure type: unspecified
[2023-09-12 08:59] LABS: BUN Creatinine Ratio 36.6 (10-20); Creatinine Clr Calc Pharmacy 40.9 ml/min; Est GFR (African American) 34.2 ml/min; Est GFR (Non-African American) 29.5 ml/min
[2023-09-12 09:19] LABS: Magnesium 2.5 mg/dl (1.7-2.4)
--- OUTSIDE RECORDS SUMMARY | 2023-09-12 11:47 | External Medical Summary | Summary of Care ---
Author Name Unknown Organization [facility] Address [address] [place] [address] Phone [phone] Care Team Providers Care Digital Account Supervisor Name Role Phone Unavailable Primary Care Provider Unavailabl e Reason for Referral * Evaluate & Treat - Unlimited Visits (Within 10 days (routine)) - Authorized Specialty Diagnoses / Procedures Referred By Jayshree carey Referred To Contact Physical Therapy / Physical Medicine And Rehab Diagnoses DM type 2 with diabetic peripheral neuropathy (HCC) Nani Durant PA-C [address] [place] [address] [place] [id number] Referral ID Status Reason Start Date Expiration Date Visits Requested Visits Authorized [id number] Authorized Specialty Services Required 08/27/[phone] Question Answer Referral Priority Within 10 days (routine) Where should this appointment be scheduled? [facility] Comments Leg weakness - coordination issues * Evaluate & Treat - Unlimited Visits (Within 10 days (routine)) - Authorized Specialty Diagnoses / Procedures Referred By Jayshree carey Referred To Contact Podiatry Diagnoses Type 2 diabetes mellitus with hemoglobin A1c goal of less than 7.0% ([facility]) Nani Durant PA-C [address] [place] [address] [place] [id number] Referral ID Status Reason Start Date Expiration Date Visits Requested Visits Authorized [id number] Authorized Specialty Services Required 08/27/[phone] Question Answer Referral Priority Within 10 days (routine) Where should this appointment be scheduled? [facility] Which condition are you referring this patient for? Diabetic foot care/pain Specific condition? Diabetic Nail trimming Medicare Patient? Yes Can Patient perform routine footcare without assistance? No Does patient have a chronic condition? Yes Has patient been seen in the past 6 months? Yes Date last seen for chronic condition: 08/27/2023 Who saw patient for chronic condition? Nani Durant PA-C Reason for Visit * Reason Comments Follow Up 6 mo f/u Encounter Details Date Type Department Care Team (Late st Contact Info) Description 08/27/2023 1:00 PM EDT Office Visit Family Medicine [address] [place] [phone] Nani Durant PA-C [address] [place] [address] [place] [id number] Type 2 diabetes mellitus with hemoglobin A1c goal of less than 7.0% ([facility])*; Type 2 diabetes mellitus with stage 3a chronic kidney disease, without long-term current use of insulin (HCC); Special screening for malignant neoplasms, colon; DM type 2 with diabetic peripheral neuropathy ([facility]); Stage 3a chronic kidney disease; Primary hypertension; Hyperlipidemia LDL goal <100; 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 0 Active Aspirin Low Dose 81 MG Oral Tablet Delayed Release (aspirin enteric coated) TAKE 1 TABLET BY MOUTH EVERY MORNING 90 Tablet 1 06/14/2022 Active Metoprolol Succinate ER 100 MG Oral Tablet Extended Release 24 Hour (toPROL XL)Indications:Cor onary artery disease involving quinault coronary artery of quinault heart without angina pectoris,Primary hypertension Take 1 Tablet by mouth in the morning. 100 Tablet 3 06/26/2022 Active metFORMIN HCl 500 MG Oral Tablet (Glucophage)Indica tions:Type 2 diabetes mellitus with hemoglobin A1c goal of less than 7.0% (HCC) TAKE ONE TABLET BY MOUTH IN THE MORNING AND IN THE EVENING WITH MEALS 180 Tablet 1 10/14/2022 Active Losartan Potassium 50 MG Oral Tablet (Cozaar)Indication s:Primary hypertension,Type 2 diabetes mellitus with hemoglobin A1c goal of less than 7.0% (HCC),Stage 3a chronic kidney disease (HCC) Take 1 Tablet by mouth daily. In the morning. 90 Tablet 1 12/29/2022 Active OneTouch Delica Plus [id number] ns:Type 2 diabetes mellitus with hemoglobin A1c goal of less than 7.0% (HCC) test up to 4 times daily 400 Each 1 02/03/2023 Active OneTouch Verio In Vitro Strip (Glucose Blood)Indications: Type 2 diabetes mellitus with hemoglobin A1c goal of less than 7.0% (HCC) test up to 4 times daily 400 Strip 1 02/03/2023 Active Furosemide 40 MG Oral Tablet (Lasix)Indications :Stage 3a chronic kidney disease (HCC),Primary hypertension Take 1 Tablet by mouth in the morning. In the morning.. 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 take one pill by mouth at bedtime 100 Tablet 1 12/29/2022 4 Discontinued documented as of this encounter (statuses as of 08/27/2023) Active Problems Problem Noted Date Diagnosed Date BMI 35.0-35.9,adult 12/29/2022 Overview: 233 Hypertensive kidney disease with stage 3a chronic kidney disease 06/19/2022 Coronary artery disease invo lving quinault coronary artery of quinault heart without angina pectoris 05/28/2021 Overview: [facility] Hx of acute myocardial infarction of inferior wa ll 05/28/2021 Type 2 diabetes mellitus wit h stage 3a chronic kidney disease, without long-term current use of insulin 02/07/2021 Stage 3a chronic kidney disease 04/23/2020 Overview: Per CKD protocol - Per CKD protocol Type 2 diabetes mellitus wit h hemoglobin A1c goal of less than 7.0% 07/28/2018 DM type 2 with diabetic peripheral neuropathy Hyperlipidemia LDL goal <100 06/09/2013 Primary hypertension 02/16/2009 Overview: Modified per HTN Taxonomy. ADVANCE DIRECTIVE INFORMATION 05/22/2005 Overview: No, Advance Directive brochure given to patient. documented as of this encounter (statuses as of 08/27/2023) Resolved Problems Problem Noted Date Diagnosed Date Resolved Date Chronic kidney disease, stage 3a 03/26/2020 04/26/2020 Overview: Per CKD protocol HTN, goal below 140/90 11/08/201111/07 Dyslipidemia, goal to be determined 06/28/2007 06/07/2009 OBESITY, UNSPECIFIED 11/19/2005 012 Elevated prostate specific antigen (PSA) 05/22/2005 07/28/2018 BENIGN HYPERTENSION 05/26/2003 02/17/20 09 Overview: Modified per HTN Taxonomy. HYPERTENSION NOS 06/03/2001 02/16/2009 Overview: Per HTN Taxonomy Renal colic 12/19/2015 BMI 31.0-31.9,adult 11/18/19 18 Optic neuritis 01/10/2019 Overview: OD documented as of this encounter (statuses as of 08/27/2023) Immunizations Name Administration Dates Next Due COVID-19 mRNA, LNP-s, No Pre serve, 2-Dose Series (Pfizer) 03/12/2021,07/17/2020,06/26/2020 TD, Preservative Free 07/21/2018 TDAP (age 11 and older)(Adacel) 10/11/2009 documented as of this encounter Social History Tobacco Use Types Packs/Day Years Used Date Smoking Tobacco: Never Smokeless Tobacco: Never Tobacco Cessation:Counseling Given: Not Answered Alcohol Use Standard Drinks/Week Comments No 0 (1 standard drink = 0.6 oz pur e alcohol) PHQ-2 Answer Date Recorded PHQ-2 Score -1 01/23/2020 Hunger Vital Sign Answer Date Recorded Worried About Running Out of Food in the Last Ye ar Never true 01/23/2020 Ran Out of Food in the Last Year Never true 01/23/2020 Sex and Gender Information Value Date Recorded Sex Assigned at Not on file Gender Identity Not on file Sexual Orientation Not on file Job Start Date Occupation Industry Not on file Not on file Not on file documented as of this encounter Last Filed Vital Signs Vital Sign Reading Time Taken Comments Blood Pressure 130/80 08/27/2023 1:03 PM EDT Pulse 68 08/27/2023 1:03 PM EDT Temperature 36.3 C (97.4 F) 08/27/2023 1:03 PM ED T Respiratory Rate - - Oxygen Saturation 99% 08/27/2023 1:03 PM EDT Inhaled Oxygen Concentration - - Weight 127.5 kg (281 lb) 08/27/2023 1:03 PM EDT Height 172.7 cm (5' 8") 08/27/2023 1:03 PM EDT Body Mass Index 42.73 08/27/2023 1:03 PM EDT documented in this encounter Progress Notes * Nani Durant PA-C - 08/27/2023 1:06 PM EDT Nursing Notes: Radha Araujo LPN 08/27/23 1309 Sign at exiting of workspace Chief Complaint Patient presents with Follow Up 6 mo f/u Concern balance [facility] Podiatry Ref Pended for Toe nail Care Labs done on 08/25/23 and Kidney function high. Held Lasix 40 mg today. He states when he was taking it Daily he would take extra tabs at times so Equal 80 mg The patient has been properly identified by confirmation of name and date of . Pt here today for recheck. Pt with PMH of HTN, dyslipidemia, CAD, DM, neuropathy, CKD. Just had some labs. CKD is worse. Pt is taking lasix 40 mg every day. He will sometimes take an extra if needed.He has actually been taking 80 mg of lasix for the past couple weeks. He feels that his abdomen gets swollen but he never noticed a difference between taking the 40 mg and 80 mg. He doesn't drink much, if any, water. Pt drinks coffee in the am. Had appt with cardiology about 9 months ago - all ok. Pt denies swelling that is worsening - it seems stable. Pt does walk on treadmill, daily. Pt would like podiatry ref for toenail care. He has neuropathy. He feels that this may make him feel off balance when he is walking. Pt denies dizziness, syncope, lightheadedness, worsening with positional changes. His legs don't feel weak but he feels that he is walking differently due to the neuropathy. Pt has no other issues at this time. Review of patient's allergies indicates: No Known Allergies Current Outpatient Medications Medication Sig Dispense Refill Multi-Vitamins Oral Tablet Take 1 Tablet by mouth in the morning. Aspirin Low Dose 81 MG Oral Tablet Delayed Release (aspirin enteric coated) TAKE 1 TABLET BY MOUTH EVERY MORNING 90 Tablet 1 Metoprolol Succinate ER 100 MG Oral Tablet Extended Release 24 Hour (toPROL XL) Take 1 Tablet by mouth in the morning. 100 Tablet 3 metFORMIN HCl 500 MG Oral Tablet (Glucophage) TAKE ONE TABLET BY MOUTH IN THE MORNING AND IN THE EVENING WITH MEALS 180 Tablet 1 Losartan Potassium 50 MG Oral Tablet (Cozaar) Take 1 Tablet by mouth daily. In the morning. 90 Tablet 1 OneTouch Delica Plus [id number] test up to 4 times daily 400 Each 1 OneTouch Verio In Vitro Strip (Glucose Blood) test up to 4 times daily 400 Strip 1 Furosemide 40 MG Oral Tablet (Lasix) Take 1 Tablet by mouth in the morning. In the morning.. 100 Tablet 1 No current facility-administered medications for this visit. 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 05/28/2021 [facility] DM type 2 with diabetic peripheral neuropathy (HCC) DM type 2, goal HbA1c < 7% ([facility]) Encounter for hepatitis C screening test for low risk patient 11/10/2018 negative Hiatal hernia HTN, goal below 140/90 Hx of acute myocardial infarction of inferior wall 05/28/2021 Hyperlipidemia LDL goal <100 Optic neuritis [address] elevation myocardial infarction involving right coronary artery (HCC) 05/28/2021 99% mid RCA, OBIE, 805 prox RCA, diffuse 80% LAD, 90% D1, 95% OM3 Social History Socioeconomic History Marital status: Spouse name: Not on file Number of children: Not on file Years of education: Not on file Highest education level: Not on file Occupational History Not on file Tobacco Use Smoking status: Never Smokeless tobacco: Never Substance and Sexual Activity Alcohol use: No Drug use: No Sexual activity: Not on file Other Topics Concern Not on file Social History Narrative Not on file Social Determinants of Health Financial Resource Strain: Not on file Food Insecurity: No Food Insecurity (01/23/2020) Hunger Vital Sign Worried About Running Out of Food in the Last Year: Never true Ran Out of Food in the Last Year: Never true Transportation Needs: Not on file Physical Activity: Not on file Stress: Not on file Social Connections: Not on file Intimate Partner Violence: Not on file Housing Stability: Not on file O:Blood pressure 130/80, pulse 68, temperature 36.3 C (97.4 F), temperature source Tympanic, weight 127.5 kg (281 lb), SpO2 99%. GENERAL: alert, healthy, and no distress NECK: supple, no adenopathy, no bruits, thyroid normal size, non-tender, without nodularity EYES: PERRLA, conjunctiva are pink and non-injected, sclera clear EARS: External ears normal, Canals clear, TM's Normal NOSE: no mucosal erythema, no mucosal edema, no purulent discharge OROPHARYNX: no exudate, no erythema, lips, buccal mucosa, and tongue normal, and mucous membranes are moist HEART: regular rate & rhythm, no murmur, and no gallops LUNGS: chest symmetric with normal AP diameter, no chest deformities noted, no chest wall tenderness, lungs clear to auscultation A:Type 2 diabetes mellitus with hemoglobin A1c goal of less than 7.0% ([facility]) (Primary) - PODIATRY REFERRAL OP Type 2 diabetes mellitus with stage 3a chronic kidney disease, without long-term current use of insulin ([facility]) - TELEMEDICINE DIABETIC EYE Special screening for malignant neoplasms, colon DM type 2 with diabetic peripheral neuropathy ([facility]) - PHYSICAL THERAPY REFERRAL OP Stage 3a chronic kidney disease Primary hypertension Hyperlipidemia LDL goal <100 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 Recheck BMP in 3- 4 weeks. Will try PT for his legs/coordination. If the neuropathy worsens, we can try a med. Any questions/problems, please call. If anything changes, worsens, develops new sx, please call JESIKA. Will refer to podiatry. Follow Up: Return PRN. Nani Durant PA-C documented in this encounter Nursing Notes * Rdaha Araujo LPN - 08/27/2023 1:07 PM EDT Chief Complaint Patient presents with Follow Up 6 mo f/u Concern balance [facility] Pod[facility]ry Ref Pended for Toe nail Care Labs done on 08/25/23 and Kidney function high. Held Lasix 40 mg today. He states when he was taking it Daily he would take extra tabs at times so Equal 80 mg The patient has been properly identified by confirmation of name and date of . documented in this encounter Plan of Treatment Upcoming Encounters Date Type Department Care Team (Late st Contact Info) Description 04/08/2024 7:40 AM EST Office Visit Family Medicine [address] [place] [phone] Dunia Smalls MD [address] [place] [address] [place] [phone] Scheduled Orders Name Type Priority Associated Diagnoses Orde r Schedule COLOGUARD Lab Unrestricted Lab Screen for colon cancer Ordered: 08/27/2023 BASIC METABOLIC PANEL Lab Routine Hypertensive kidney disease with stage 3a chronic kidney disease (HCC) Expected: 08/27/2023 (Approximate), Expires: 08/26/2024 Scheduled Referrals Name Type Priority Associated Diagnoses Orde r Schedule PODIATRY REFERRAL OP Referral Within 10 days (routine) Type 2 diabetes mellitus with hemoglobin A1c goal of less than 7.0% (HCC) Ordered: 08/27/2023 PHYSICAL THERAPY REFERRAL OP Referral Within 10 days (routine) DM type 2 with diabetic peripheral neuropathy (HCC) Ordered: 08/27/2023 Health Maintenance Due Date Last Done Comments Pneumococcal Vaccine: 65+ Years (1 of 2 - PCV) 1957 Colonoscopy 1996 Fecal Occult Blood Test 1996 Sigmoidoscopy 1996 Zoster Vaccines (1 of 2) 2001 Depression Screening 02/19/2021 02/20/2020 Cologuard 10/27/2021 10/27/2018 Colorectal Cancer Screening 10/27/2021 COVID-19 Vaccine ( season) 2022 03/12/2021, 07/17/2020, 06/26/2020 Influenza Vaccine (FLU shot) (Season Ended) 2023 CKD PHOS USE SMARTSET [id number] 12/24/202312/12, 07/31/2021, 06/05/2021 GFR 02/25/2024 08/25/2023, 12/12, 07/31/2021, Additional history exists HbA1c 02/25/2024 08/25/2023, 12/12, 06/26/2022, Additional history exists Albumin/Creatinine Ratio 08/24/2024 024, 06/26/2022, 06/05/2021, Additional history exists B-12 08/24/2024 08/25/2023, 06/11, 06/05/2021, Additional history exists CKD HGB USE SMARTSET [id number] 08/24/202408/24, 08/25/2023, 03/31/2022, Additional history exists Diabetic Foot Exam 08/25/2024 02/20/2020, 11/16/2018 Postponed from 02/19/2021 (Done Elsewhere) Diabetic Eye Exam 08/26/2024 08/27/2023, , 02/19/2021, Additional history exists DTaP,Tdap,and Td Vaccines (3 - Td or Tdap) 07/21/2028 07/21/2018, 10/11/2009 GARDASIL-HPV IMMUNIZATION SERIES Aged Out No longer eligible based on patient's age to complete this topic Hepatitis B Aged Out No longer eligi ble based on patient's age to complete this topic MENINGOCOCCAL (MENACTRA/MENVEO) Aged Out No longer eligible based on patient's age to complete this topic documented as of this encounter Medical Devices Not on filedocumented as of this encounter Procedures Procedure Name Priority Date/Time Associated Diagnosis Comments TELEMEDICINE DIABETIC EYE Routine 08/27/2023 Type 2 diabetes mellitus with stage 3a chronic kidney disease, without long-term current use of insulin (HCC) documented in this encounter Results * TELEMEDICINE DIABETIC EYE (08/27/2023) 08/27/2023 Nani Durant PA-C DIGITAL PHOTOGRAPH Y documented in this encounter Visit Diagnoses Diagnosis Type 2 diabetes mellitus with hemoglobin A1c goal of less than 7.0% (HCC)- Primary Type 2 diabetes mellitus with stage 3a chronic kidney disease, without long-term current use of insulin (HCC) Special screening for malignant neoplasms, colon DM type 2 with diabetic peripheral neuropathy (HCC) Type II or unspecified type diabetes mellitus with neurological manifestations, not stated as uncontrolled Stage 3a chronic kidney disease Primary hypertension Unspecified essential hypertension Hyperlipidemia LDL goal <100 Other and unspecified hyperlipidemia Coronary artery disease involving 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
--- OUTSIDE RECORDS SUMMARY | 2023-09-12 11:47 | External Medical Summary | Summary of Care ---
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 Active Aspirin Low Dose 81 MG Oral Tablet Delayed Release (aspirin enteric coated) TAKE 1 TABLET BY MOUTH EVERY MORNING 90 Tablet 1 06/14/2022 Active metFORMIN HCl 500 MG Oral Tablet (Glucophage)Indica tions:Type 2 diabetes mellitus with hemoglobin A1c goal of less than 7.0% (HCC) TAKE ONE TABLET BY MOUTH IN THE MORNING AND IN THE EVENING WITH MEALS 180 Tablet 1 10/14/2022 Active OneTouch Delica Plus [id number] ns:Type 2 diabetes mellitus with hemoglobin A1c [...] the morning.. 100 Tablet 1 04/08/2023 Active Metoprolol Succinate ER 100 MG Oral Tablet Extended Release 24 Hour (toPROL XL)Indications:Cor onary artery disease involving bill moore's slough coronary artery of bill moore's slough heart without angina pectoris,Primary hypertension Take 1 Tablet by mouth in the morning. 100 Tablet 3 09/02/2023 Active Losartan Potassium 50 MG Oral Tablet (Cozaar)Indication s:Primary hypertension,Type 2 diabetes mellitus with hemoglobin A1c goal of less than 7.0% (HCC),Stage 3a chronic kidney disease (HCC) Take 1 Tablet by mouth daily. In the morning. 90 Tablet 1 09/02/2023 Active Metoprolol Succinate ER 100 MG Oral Tablet Extended Release 24 Hour (toPROL XL)Indications:Cor onary artery disease involving bill moore's slough coronary artery of bill moore's slough heart without angina pectoris,Primary hypertension Take 1 Tablet by mouth in the morning. 100 Tablet 3 06/26/2022 09/01/2023 Discontinued (Refill) Losartan Potassium 50 MG Oral Tablet (Cozaar)Indication s:Primary hypertension,Type 2 diabetes mellitus with hemoglobin A1c goal of less than 7.0% (HCC),Stage 3a chronic kidney disease (HCC) Take 1 Tablet by mouth daily. In the morning. 90 Tablet 1 12/29/2022 09/01/2023 Discontinued (Refill) documented as of this encounter (statuses as of 09/02/2023) Active Problems Problem Noted Date Diagnosed Date BMI 35.0-35.9,adult 12/29/2022 Overview: 233 Hypertensive kidney disease with stage 3a chronic kidney disease 06/19/2022 Coronary artery disease invo lving bill moore's slough coronary artery of bill moore's slough heart without angina pectoris 05/28/2021 Overview: STEMI [facility] Hx of acute myocardial infarction of inferior [...] as of this encounter (statuses as of 09/02/2023) Resolved Problems Problem Noted Date Diagnosed Date [...] as of this encounter (statuses as of 09/02/2023) Immunizations Name Administration Dates Next Due COVID-19 mRNA, LNP-s, No Pre serve, 2-Dose Series (eXenSa) 03/12/2021,07/17/2020,06/26/2020 TD, Preservative Free 07/21/2018 TDAP (age 11 and older)(Adacel) 10/11/2009 documented as of this encounter Social History Tobacco Use Types Packs/Day Years Used Date Smoking Tobacco: Never Smokeless Tobacco: Never Alcohol Use Standard Drinks/Week Comments No 0 [...] on file documented as of this encounter Miscellaneous Notes * Telephone Encounter - Kerri Frausto RPh - 09/02/2023 1:52 PM EDT Signed Prescriptions: Disp Refills Metoprolol Succinate ER 100 MG Oral Tablet*100 Ta*3 Sig: Take 1 Tablet by mouth in the morning. Authorizing Provider: DUNIA SMALLS Ordering User: KERRI FRAUSTO Losartan Potassium 50 MG Oral Tablet (Coza*90 Tab*1 Sig: Take 1 Tablet by mouth daily. In the morning. Authorizing Provider: DUNIA SMALLS Ordering User: KERRI FRAUSTO * Telephone Encounter - Lorri Dent, petroleum inspector - 09/01/2023 7:59 AM EDT Did you pend patient's preferred pharmacy and medication before forwarding?yes Pharmacy: [id number] [facility] Pending Prescriptions: Disp Refills Metoprolol Succinate ER 100 MG Oral Table*100 Ta*3 Sig: Take 1 Tablet by mouth in the morning. Losartan Potassium 50 MG Oral Tablet (Coz*90 Tab*1 Sig: Take 1 Tablet by mouth daily. In the morning. Last Visit: 08/27/2023 (in office), Visit date not found (telemedicine) Next Visit: 04/08/2024 If no future appointments scheduled, and last appointment is greater than a year ago, please schedule patient for a follow-up appointment Last date the medication was ordered: 12/29/2022-06/26/2022 Is this request for a controlled substance?No Urine Drug Screen:No results found for this or any previous visit. Patient Phone Numbers Labs: Lab Results Component Value Date/Time CREAT 2.2 (H) 08/25/2023 09:09 AM CREAT 1.5 (H) 02/20/2020 08:42 AM POTASSIUM 4.9 08/25/2023 09:09 AM POTASSIUM 4.7 02/20/2020 08:42 AM LDLCALC 58 08/25/2023 09:09 AM LDLCALC 60 02/20/2020 08:42 AM LDLDIRECT NOT APPLICABLE 02/20/2020 08:42 AM ALT 19 08/25/2023 09:09 AM HGBA1C 5.7 (H) 08/25/2023 09:09 AM HGBA1C 6.7 (H) 02/20/2020 08:42 AM documented in this encounter Plan of Treatment Upcoming Encounters Date Type Department Care Team (Late st Contact Info) Description 09/11/2023 8:40 AM EDT Office Visit [address] [place] [phone] Dunia Smalls MD [address] [place] [address] [place] [phone] 04/08/2024 7:40 AM EST Office Visit [address] [place] [phone] Dunia Smalls MD [address] [place] [address] [place] [phone] Health Maintenance Due Date Last Done Comments Pneumococcal Vaccine: 65+ Years (1 of 2 - PCV) 1956 Colonoscopy 1996 Fecal Occult Blood Test 1996 Sigmoidoscopy 1996 Zoster Vaccines (1 of 2) 2001 Depression Screening 02/19/2021 02/20/2020 Cologuard 10/27/2021 10/27/2018 Colorectal Cancer Screening 10/27/2021 COVID-19 Vaccine ( season) 2022 03/12/2021, 07/17/2020, 06/26/2020 Influenza Vaccine (FLU shot) (Season Ended) 2023 CKD PHOS USE SMARTSET 35758 12/24/202312/12, 07/31/2021, 06/05/2021 GFR 02/25/2024 08/25/2023, 12/12, 07/31/2021, Additional history exists HbA1c 02/25/2024 08/25/2023, 12/12, 06/26/2022, Additional history exists Albumin/Creatinine Ratio 08/24/2024 024, 06/26/2022, 06/05/2021, Additional history exists B-12 08/24/2024 08/25/2023, 06/11, 06/05/2021, Additional history exists CKD HGB USE SMARTSET 86709 08/24/202408/24, 08/25/2023, 03/31/2022, Additional history exists Diabetic [...] Not on filedocumented as of this encounter Visit Diagnoses Diagnosis 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
--- OUTSIDE RECORDS SUMMARY | 2023-09-12 11:47 | External Medical Summary | Summary of Care ---
Author Name Unknown Organization [facility] Address [address] [place] [address] Phone [phone] Care Team Providers Care Mental Health Aide Name Role Phone Unavailable Primary Care Provider Unavailabl e Reason for Visit * Reason Onset Date Comments Scan To Read 08/27/2023 DM eye exam Encounter Details Date Type Department Care Team (Late st Contact Info) Description 08/27/[address] [place] [phone] Nani Durant PA-C [address] [place] [address] [place] [address] Scan To Read (DM eye exam) Allergies No known active allergiesdocumented as of [...] Oral Tablet Extended Release 24 Hour (toPROL XL)Indications:Osei ry artery disease involving pai[place]-shoshone coronary artery of paiute-shoshone heart without angina pectoris,Primary hypertension Take 1 Tablet by mouth in the morning. 100 Tablet 3 06/26/2022 Active metFORMIN HCl 500 MG Oral Tablet (Glucophage)Indicatio ns:Type 2 diabetes mellitus with hemoglobin A1c goal of less than 7.0% (HCC) TAKE ONE TABLET BY MOUTH IN THE MORNING AND IN THE EVENING WITH MEALS 180 Tablet 1 10/14/2022 Active Losartan Potassium 50 MG Oral Tablet (Cozaar)Indications:P rimary hypertension,Type 2 diabetes mellitus with hemoglobin A1c goal of less than 7.0% (HCC),Stage 3a chronic kidney disease (HCC) Take 1 Tablet by mouth daily. In the morning. 90 Tablet 1 12/29/2022 Active OneTouch Delica Plus [id number]: Type 2 diabetes mellitus with hemoglobin A1c goal of less than 7.0% ([facility]) test up to 4 times daily 400 Each 1 02/03/2023 Active OneTouch Verio In Vitro Strip (Glucose Blood)Indications:Typ e 2 diabetes mellitus with hemoglobin A1c goal of less than 7.0% ([facility]) test up to 4 times daily 400 Strip 1 02/03/2023 Active Furosemide 40 MG Oral Tablet (Lasix)Indications:St age 3a chronic kidney disease (HCC),Primary hypertension Take 1 Tablet by mouth in the morning. In the morning.. 100 Tablet 1 04/08/2023 Active documented as of this encounter (statuses as of 08/27/2023) Active Problems Problem Noted Date Diagnosed Date BMI 35.0-35.9,adult 12/29/2022 Overview: 233 Hypertensive kidney disease with stage 3a chronic kidney disease 06/19/2022 Coronary artery disease invo lving pai[place]shoshone coronary artery of paiute-shoshone heart without angina pectoris 05/28/2021 Overview: [facility]I [facility] Hx of acute myocardial infarction of inferior [...] encounter Miscellaneous Notes * Telephone Encounter - Renny Mcghee MD - 08/27/2023 1:26 PM EDT Retinal Scan Imaging [place] [id number] Retinal Scan Interpretation: There is no retinopathy in both eyes Diabetes Retinal Imaging Care Plan: The retinal scan results are normal - I will forward this encounter to the Ophthalmology DM Letter Pool [[id number]], they will send a normal retinal scan letter to the patient, and the patient will be seen back for a yearly scan. Renny Mcghee MD 08/27/2023 1:26 PM * Telephone Encounter - Radha Araujo LPN - 08/27/2023 1:18 PM EDT A Diabetic Telemed Eye image was taken and requires your interpretation for Nani CROUCH. Please check your inbasket for image. Patient prefers to be seen at [facility] if a follow-up appointment is needed. documented in this encounter Plan of Treatment Upcoming Encounters Date Type Department Care Team (Late st Contact Info) Description 04/08/2024 7:40 AM EST Office Visit Family Medicine [address] [place] [phone] Dunia Smalls MD [address] [place] [address] [place] [phone] Health Maintenance Due Date Last Done Comments Pneumococcal Vaccine: 65+ Years (1 of 2 - PCV) 1956 Colonoscopy 1996 Fecal Occult Blood Test 1996 Sigmoidoscopy 1996 Zoster Vaccines (1 of 2) 2001 Depression Screening 02/19/2021 02/20/2020 Cologuard 10/27/2021 10/27/2018 Colorectal Cancer Screening 10/27/2021 COVID-19 Vaccine ( season) 2022 03/12/2021, 07/17/2020, 06/26/2020 Influenza Vaccine (FLU shot) (Season Ended) 2023 CKD PHOS USE SMARTSET 60389 12/24/202312/12, 07/31/2021, 06/05/2021 GFR 02/25/2024 08/25/2023, 12/12, 07/31/2021, Additional history exists HbA1c 02/25/2024 08/25/2023, 12/12, 06/26/2022, Additional history exists Albumin/Creatinine Ratio 08/24/2024 024, 06/26/2022, 06/05/2021, Additional history exists B-12 08/24/2024 08/25/2023, 06/11, 06/05/2021, Additional history exists CKD HGB USE SMARTSET 14518 08/24/202408/24, 08/25/2023, 03/31/2022, Additional history exists Diabetic [...]
--- OUTSIDE RECORDS SUMMARY | 2023-09-12 11:47 | External Medical Summary | Summary of Care ---
Author Name Unknown Organization [facility] Address [address] [place] [address] Phone [phone] Care Team Providers Care Cloth Mercerizer Operator Name Role Phone Unavailable Primary Care Provider Unavailabl e Reason for Visit * Reason Comments Outpatient Testing Encounter Details Date Type Department Care Team (Late st Contact Info) Description 08/25/2023 9:10 AM EDT Laboratory Laboratory [address] [place] [phone] [place] [address] Stage 3a chronic kidney disease; DM type 2 with diabetic peripheral neuropathy (HCC); Coronary artery disease involving eyak coronary artery of eyak heart without angina pectoris Allergies No known active allergiesdocumented as of this encounter (statuses as of 08/25/2023) Medications Medication Sig Dispensed Refills Start Date [...] Hour (toPROL XL)Indications:Osei ry artery disease involving eyak coronary artery of eyak heart without angina pectoris,Primary hypertension Take 1 Tablet by mouth in the morning. 100 Tablet 3 06/26/2022 Active metFORMIN HCl 500 MG Oral Tablet (Glucophage)Indicatio ns:Type 2 diabetes mellitus with hemoglobin A1c goal of less than 7.0% (HCC) TAKE ONE TABLET BY MOUTH IN THE MORNING AND IN THE EVENING WITH MEALS 180 Tablet 1 10/14/2022 Active Atorvastatin Calcium 20 MG Oral Tablet (Lipitor)Indications: Hyperlipidemia LDL goal <100,Coronary artery disease involving eyak coronary artery of eyak heart without angina pectoris take one pill by mouth at bedtime 100 Tablet 1 12/29/2022 Active Losartan Potassium 50 MG Oral Tablet (Cozaar)Indications:P rimary hypertension,Type 2 diabetes mellitus with hemoglobin A1c goal of less than 7.0% (HCC),Stage 3a chronic kidney disease (HCC) Take 1 Tablet by mouth daily. In the morning. 90 Tablet 1 12/29/2022 Active OneTouch Delica Plus [id number]: Type 2 diabetes mellitus with hemoglobin A1c goal of less than 7.0% ([facility]) test up to 4 times daily 400 Each 1 02/03/2023 Active OneTouch Verio In Vitro Strip (Glucose Blood)Indications:Typ e 2 diabetes mellitus with hemoglobin A1c goal of less than 7.0% ([facility]) test up to 4 times daily 400 Strip 1 02/03/2023 Active Furosemide 40 MG Oral Tablet (Lasix)Indications:St age 3a chronic kidney disease (HCC),Primary hypertension Take 1 Tablet by mouth in the morning. In the morning.. 100 Tablet 1 04/08/2023 Active documented as of this encounter (statuses as of 08/25/2023) Active Problems Problem Noted Date Diagnosed Date BMI 35.0-35.9,adult 12/29/2022 Overview: 233 Hypertensive kidney disease with stage 3a chronic kidney disease 06/19/2022 Coronary artery disease invo lving eyak coronary artery of eyak heart without angina pectoris 05/28/2021 Overview: STEMI [facility] Hx of acute myocardial infarction of [...] as of this encounter (statuses as of 08/25/2023) Resolved Problems Problem Noted Date Diagnosed Date [...] as of this encounter (statuses as of 08/25/2023) Immunizations Name Administration Dates Next Due COVID-19 [...] on file documented as of this encounter Plan of Treatment Upcoming Encounters Date Type Department Care Team (Late st Contact Info) Description 08/27/2023 1:00 PM EDT Office Visit Family Medicine [address] [place] [phone] Nani Durant PA-C [address] [place] [address] [place] [phone] Pending Results Name Type Priority Associated Diagnoses Date /Time COMPREHENSIVE METABOLIC PANEL Lab Routine Stage 3a chronic kidney disease 08/25/2023 9:09 AM EDT HEMOGLOBIN A1C Lab Routine DM type 2 with diabetic peripheral neuropathy (HCC) 08/25/2023 9:09 AM EDT LIPID PANEL WITH DIRECT LDL IF TG IS HIGH Lab Routine Coronary artery disease involving eyak coronary artery of eyak heart without angina pectoris 08/25/2023 9:09 AM EDT ALBUMIN / CREATININE RATIO, URINE Lab Routine Stage 3a chronic kidney disease 08/25/2023 9:09 AM EDT CBC WITH WBC DIFFERENTIAL AND ANEMIA REFLEX WORKUP Lab Routine DM type 2 with diabetic peripheral neuropathy (HCC) 08/25/2023 9:09 AM EDT VITAMIN B12 Lab Routine DM type 2 with diabetic peripheral neuropathy (HCC) 08/25/2023 9:09 AM EDT ANEMIA CBC Lab Routine DM type 2 with diabetic peripheral neuropathy (HCC) 08/25/2023 9:09 AM EDT DIFFERENTIAL, AUTOMATED Lab Routine DM type 2 with diabetic peripheral neuropathy (HCC) 08/25/2023 9:09 AM EDT ANEMIA REFLEX CHEMISTRY HOLD Lab Routine DM type 2 with diabetic peripheral neuropathy (HCC) 08/25/2023 9:09 AM EDT Health Maintenance Due Date Last Done Comments Pneumococcal Vaccine: 65+ Years (1 of 2 - PCV) 1957 Colonoscopy 1996 Fecal Occult Blood Test 1996 Sigmoidoscopy 1996 Zoster Vaccines (1 of 2) 2001 Depression Screening 02/19/2021 02/20/2020 Diabetic Foot Exam 02/19/2021 02/20/2020, 11/16/2018 Cologuard 10/27/2021 10/27/2018 Colorectal Cancer Screening 10/27/2021 COVID-19 Vaccine ( season) 2022 03/12/2021, 07/17/2020, 06/26/2020 CKD HGB USE SMARTSET 25379 03/31/2023 03/31/2022, GFR 06/23/2023 12/23/2022, 07/13, 06/05/2021, Additional history exists HbA1c 06/23/2023 12/23/2022, 06/11, 03/31/2022, Additional history exists Albumin/Creatinine Ratio 06/27/2023 023, 06/05/2021, 02/20/2020 B-12 06/27/2023 06/26/2022, 05/15, 11/10/2018, Additional history exists Diabetic Eye Exam 06/27/2023 06/26/2022, , 08/26/2018, Additional history exists Influenza Vaccine (FLU shot) (Season Ended) 2023 CKD PHOS USE SMARTSET [id number] 12/24/202312/12, 07/31/2021, 06/05/2021 DTaP,Tdap,and Td Vaccines (3 - Td or [...] as of this encounter Visit Diagnoses Diagnosis Stage 3a chronic kidney disease DM type 2 with diabetic peripheral neuropathy (HCC) Type II or unspecified type diabetes mellitus with neurological manifestations, not stated as uncontrolled Coronary artery disease involving eyak coronary artery of eyak heart without angina pectoris documented in this encounter
--- OUTSIDE RECORDS SUMMARY | 2023-09-12 11:47 | External Medical Summary ---
Author Name Unknown Address Unknown Organization [id number][place] [place] [address] [place] [address] Laboratory Report Ordering Provider Test Date Status GWENDOLYN WILKINSONShantal 08/25/2023 09:09:51 Final Observation Date Value Abnormality Reference (Units ) Status BUN 08/25/2023 09:09:51 66 Above high normal 6-20 (mg/dL) Final Creatinine 08/25/2023 09:09:51 2.2 Above high normal 0.6-1.2 (mg/dL) Final Glomerular filtration rate/1.73 sq M.predicted [Volume Rate/Area] in Serum, Plasma or Blood by Creatinine-based formula (CKD-EPI) 08/25/2023 09:09:51 31 Below low normal >=60 (mL/min) Final eGFR is calculated based on the CKD-EPI 2020 equation Sodium 08/25/2023 09:09:51 140 135-146 (m mol/L) Final Potassium 08/25/2023 09:09:51 4.9 3.5-5.1 (m mol/L) Final Cl 08/25/2023 09:09:51 107 98-107 (mm ol/L) Final CO2 08/25/2023 09:09:51 20 Below low normal 22- 32 (mmol/L) Final Anion gap 08/25/2023 09:09:51 13 7-15 (mmol /L) Final Glucose 08/25/2023 09:09:51 93 70-120 (mg /dL) Final Albumin 08/25/2023 09:09:51 3.8 3.8-5.0 (g /dL) Final AST (Aspartate aminotransferase) 08/25/2023 09:09:51 20 10-50 (U/L) Fin al Alk Phos 08/25/2023 09:09:51 108 35-130 (U/ L) Final Bilirubin, Total 08/25/2023 09:09:51 0.5 <=1 .2 (mg/dL) Final Calcium 08/25/2023 09:09:51 9.1 8.4-10.2 ( mg/dL) Final Protein 08/25/2023 09:09:51 6.7 6.0-8.3 (g /dL) Final ALT (Alanine aminotransferase) 08/25/2023 09:09:51 19 10-50 (U/L) Yusuf ludwig Performing Location [facility] [place] [facility] [place] [facility] [place] [address] [facility] [address]
--- OUTSIDE RECORDS SUMMARY | 2023-09-12 11:47 | External Medical Summary ---
Author Name Unknown Address Unknown Organization K01:[facility] [place] [address] [place] [address] Laboratory Report Ordering Provider Test Date Status JUAN DIEGO WILKINSONTELLY 08/25/2023 09:09:51 Final Normal: <30 mg/g creatinine< br/>High: 30-300 mg/g creatinine
Very High: >300 mg/g creatinine
Nephrotic: >2200 mg/g creatinine Observation Date Value Abnormality Reference (Units ) Status Albumin, Urine 08/25/2023 09:09:51 4.60 (mg/dL) Final Creatinine, Urine 08/25/2023 09:09:51 66 (mg/dL) Final Albumin/Creatinine [Mass Ratio] in Urine 08/25/2023 09:09:51 70 Above high normal <30 (mg/g Creat) Final Performing Location [facility] [place] - [address] [place] [address]
--- OUTSIDE RECORDS SUMMARY | 2023-09-12 11:47 | External Medical Summary ---
Author Name Unknown Address Unknown Organization K01:[facility] [place] - [address] [place] [address] Laboratory Report Ordering Provider Test Date Status ALLIE WILKINSON 08/25/2023 09:09:51 Final Observation Date Value Abnormality Reference (Units ) Status HbA1C 08/25/2023 09:09:51 5.7 Above high normal 4. 0-5.6 (%) Final The use of HbA1c to monitor glycemic status is based on normal hemoglobin and HbA composition. This test should not be used in patients with abnormal hemoglobin that affects the half life of the red blood cell or the in vivo glycation rates. Glucose, estimated average 08/25/2023 09:09:51 117 <126 (mg/dL) Final Performing Location LAB[facility]ORY [facility] [place] - [address] [place] [address]
--- OUTSIDE RECORDS SUMMARY | 2023-09-12 11:47 | External Medical Summary | Summary of Care ---
Author Name Unknown Organization [facility] Address [address] [place] [address] Phone [phone] Care Team Providers Care Player Development Executive Name Role Phone Unavailable Primary Care Provider Unavailabl e Reason for Visit * Reason Onset Date Comments Order Request 08/12/2023 Routine lab Encounter Details Date Type Department Care Team (Late st Contact Info) Description 08/12/2023 Telephone Family Medicine [address] [place] [address] Dunia Smalls MD [address] [place] [address] [place] [phone] Order Request (Routine lab) Allergies No known active allergiesdocumented as of this encounter (statuses as of 08/18/2023) Medications Medication Sig Dispensed Refills Start Date [...] Hour (toPROL XL)Indications:Osei ry artery disease involving [place] coronary artery of [place] heart without angina pectoris,Primary hypertension Take 1 [...] Hyperlipidemia LDL goal <100,Coronary artery disease involving [place] coronary artery of [place] heart without angina pectoris take one pill by mouth at bedtime 100 Tablet 1 12/29/2022 Active Losartan Potassium 50 MG Oral Tablet (Cozaar)Indications:P rimary hypertension,Type 2 diabetes mellitus with hemoglobin A1c goal of less than 7.0% (HCC),Stage 3a chronic kidney disease (HCC) Take 1 Tablet by mouth daily. In the morning. 90 Tablet 1 12/29/2022 Active OneTouch Delica Plus [id number]: Type 2 diabetes mellitus with hemoglobin A1c goal of less than 7.0% ([facility]) test up to 4 times daily 400 Each 1 02/03/2023 Active OneTouch Verio In Vitro Strip (Glucose Blood)Indications:Typ e 2 diabetes mellitus with hemoglobin A1c goal of less than 7.0% ([facility]) test up to 4 times daily 400 Strip 1 02/03/2023 Active Furosemide 40 MG Oral Tablet (Lasix)Indications:St age 3a chronic kidney disease (HCC),Primary hypertension Take 1 Tablet by mouth in the morning. In the morning.. 100 Tablet 1 04/08/2023 Active documented as of this encounter (statuses as of 08/18/2023) Active Problems Problem Noted Date Diagnosed Date BMI 35.0-35.9,adult 12/29/2022 Overview: 233 Hypertensive kidney disease with stage 3a chronic kidney disease 06/19/2022 Coronary artery disease invo lving [place] coronary artery of [place] heart without angina pectoris 05/28/2021 Overview: STEMI [facility] Hx of acute myocardial infarction of [...] as of this encounter (statuses as of 08/18/2023) Resolved Problems Problem Noted Date Diagnosed Date [...] as of this encounter (statuses as of 08/18/2023) Immunizations Name Administration Dates Next Due COVID-19 mRNA, LNP-s, No Pre serve, 2-Dose Series ([employer]) 03/12/2021,07/17/2020,06/26/2020 TD, Preservative Free 07/21/2018 TDAP (age [...] encounter Miscellaneous Notes * Telephone Encounter - Julissa Dodge RN - 08/18/2023 10:10 AM EDT Orders are placed, pt is aware * Telephone Encounter - Nani Durant PA-C - 08/17/2023 3:56 PM EDT Lab orders in. * Telephone Encounter - Rupert Patel OSA - 08/12/2023 2:00 PM EDT Patient is coming in for a 6 month follow up appointment on 08/27/23, he is requesting an order to have routine labs done prior to his scheduled appointment. Please call patient after order is placed so that he can contact scheduling to schedule his lab appointment. Thank You documented in this encounter Plan of Treatment Upcoming Encounters Date Type Department Care Team (Late st Contact Info) Description 08/27/2023 1:00 PM EDT Office Visit Family Medicine [address] [place] [phone] Nani Durant PA-C [address] [place] [address] [place] [phone] Scheduled Orders Name Type Priority Associated Diagnoses Orde r Schedule COMPREHENSIVE METABOLIC PANEL Lab Routine Stage 3a chronic kidney disease Expected: 08/17/2023 (Approximate), Expires: 08/16/2024 HEMOGLOBIN A1C Lab Routine DM type 2 with diabetic peripheral neuropathy (HCC) Expected: 08/17/2023 (Approximate), Expires: 08/16/2024 LIPID PANEL WITH DIRECT LDL IF TG IS HIGH Lab Routine Coronary artery disease involving [place] coronary artery of [place] heart without angina pectoris Expected: 08/17/2023, Expires: 08/16/2024 ALBUMIN / CREATININE RATIO, URINE Lab Routine Stage 3a chronic kidney disease Expected: 08/17/2023 (Approximate), Expires: 08/16/2024 CBC WITH WBC DIFFERENTIAL AND ANEMIA REFLEX WORKUP Lab Routine DM type 2 with diabetic peripheral neuropathy (HCC) Expected: 08/17/2023 (Approximate), Expires: 08/16/2024 VITAMIN B12 Lab Routine DM type 2 with diabetic peripheral neuropathy (HCC) Expected: 08/17/2023 (Approximate), Expires: 08/16/2024 Health Maintenance Due Date Last Done Comments Pneumococcal Vaccine: 65+ Years (1 of 2 - PCV) 1956 Colonoscopy 1996 Fecal Occult Blood Test 1996 Sigmoidoscopy 1996 Zoster Vaccines (1 of 2) 2001 Depression Screening 02/19/2021 02/20/2020 Diabetic Foot Exam 02/19/2021 02/20/2020, 11/16/2018 Cologuard 10/27/2021 10/27/2018 Colorectal Cancer Screening 10/27/2021 COVID-19 Vaccine ( season) 2022 03/12/2021, 07/17/2020, 06/26/2020 CKD HGB USE SMARTSET 70157 03/31/2023 03/31/2022, GFR 06/23/2023 12/23/2022, 07/13, 06/05/2021, Additional history exists HbA1c 06/23/2023 12/23/2022, 06/11, 03/31/2022, Additional history exists Albumin/Creatinine Ratio 06/27/2023 023, 06/05/2021, 02/20/2020 B-12 06/27/2023 06/26/2022, 05/15, 11/10/2018, Additional history exists Diabetic Eye Exam 06/27/2023 06/26/2022, , 08/26/2018, Additional history exists Influenza Vaccine (FLU shot) (Season Ended) 2023 CKD PHOS USE SMARTSET 53506 12/24/202312/12, 07/31/2021, 06/05/2021 DTaP,Tdap,and Td Vaccines (3 [...] as of this encounter Visit Diagnoses Diagnosis DM type 2 with diabetic peripheral neuropathy (HCC)- Primary Type II or unspecified type diabetes mellitus with neurological manifestations, not stated as uncontrolled Stage 3a chronic kidney disease Coronary artery disease involving [place] coronary artery of [place] heart without angina pectoris documented in this encounter
--- OUTSIDE RECORDS SUMMARY | 2023-09-12 11:47 | External Medical Summary ---
Author Name Unknown Address Unknown Organization [id number]:[facility] - [address] [place] [address] Laboratory Report Ordering Provider Test Date Status ALLIE WILKINSON 08/25/2023 09:09:51 Final Observation Date Value Abnormality Reference (Units ) Status Ferritin 08/25/2023 09:09:51 114 30-400 (ng /mL) Final Performing Location [facility] - [address] [place] [address]
--- OUTSIDE RECORDS SUMMARY | 2023-09-12 11:47 | External Medical Summary ---
Author Name Unknown Address Unknown Organization [id number]:LABORATORY [facility] - [address] [place] [address] Laboratory Report Ordering Provider Test Date Status ALLIE WILKINSON 08/25/2023 09:09:51 Final Observation Date Value Abnormality Reference (Units ) Status WBC, Total 08/25/2023 09:09:51 5.79 4.00-10.8 0 (K/uL) Final RBC 08/25/2023 09:09:51 4.68 4.50-5.25 (M/uL) Final Hemoglobin 08/25/2023 09:09:51 12.9 Below low normal 14 .0-16.8 (g/dL) Final Anemia reflex testing trigge rs on a HGB < 12.0 for Females and HGB < 13.0 for Males in accordance with the WHO Anemia Guidelines
Anemia reflex testing triggers on a HGB < 12.0 for Females and HGB < 13.0 for Males in accordance with the WHO Anemia Guidelines HCT 08/25/2023 09:09:51 41.8 40.0-48.4 (%) Final MCV 08/25/2023 09:09:51 89.3 82.0-99.5 (fL) Final MCH 08/25/2023 09:09:51 27.6 27.0-34.0 (pg) Final MCHC 08/25/2023 09:09:51 30.9 32.0-36.0 (g/dL) Final RDW 08/25/2023 09:09:51 15.6 11.5-15.5 (%) Final Platelets 08/25/2023 09:09:51 244 140-400 (K /uL) Final MPV 08/25/2023 09:09:51 10.4 6.6-11.1 ( fL) Final Nucleated erythrocytes/100 leukocytes [Ratio] in Blood by Automated count 08/25/2023 09:09:51 0 <=0 (/100 WBCs) Fi formerly [facility] Performing Location [facility] - [address] [facility] [address]
--- OUTSIDE RECORDS SUMMARY | 2023-09-12 11:47 | External Medical Summary ---
Author Name Unknown Address Unknown Organization [id number]:LABORATORY [facility] - [address] [place] [address] Laboratory Report Ordering Provider Test Date Status ALLIE WILKINSON 08/25/2023 09:09:51 Final Observation Date Value Abnormality Reference (Units ) Status Iron 08/25/2023 09:09:51 54 45-176 (ug/dL) Final Iron-binding capacity 08/25/2023 09:09:51 232 Below low normal 250-425 (ug/dL) Final Transferrin Sat % 08/25/2023 09:09:51 23 15-55 (%) Final Performing Location LABORATORY [facility] - [address] [place] [address]
--- OUTSIDE RECORDS SUMMARY | 2023-09-12 11:47 | External Medical Summary ---
Author Name Unknown Address Unknown Organization [id number]:[facility] [place] [address] [place] [address] Laboratory Report Ordering Provider Test Date Status ALLIE WILKINSON 08/25/2023 09:09:51 Final Observation Date Value Abnormality Reference (Units ) Status Retic, % (auto) 08/25/2023 09:09:51 2.03 Above high normal 0.80-1.90 (%) Final Reticulocytes, Absolute 08/25/2023 09:09:51 95.0 31.3-100.1 (K/uL) Final Reticulocyte fraction, immature 08/25/2023 09:09:51 22.8 Above high normal 2.5-20.6 (%) Final Reticulocyte HGB 08/25/2023 09:09:51 30.5 29.7-37.4 (pg) Final Performing Location [facility] [place] [address] [place] [address]
--- OUTSIDE RECORDS SUMMARY | 2023-09-12 11:47 | External Medical Summary ---
Author Name Unknown Address Unknown Organization [id number]:LABORATORY [facility] - [address] [facility] [address] Laboratory Report Ordering Provider Test Date Status JUAN DIEGO WILKINSONTELLY 08/25/2023 09:09:51 Final Observation Date Value Abnormality Reference (Units ) Status SYNC LEUKOCYTES IN BLOOD BY AUTOMATED COUNT 08/25/2023 09:09:51 5.79 4.00-10.80 (K/uL) Final Segs 08/25/2023 09:09:51 77.1 Above high normal 40.0-75.0 (%) Final Lymphs % 08/25/2023 09:09:51 13.1 Below low normal 18.0-42.0 (%) Final Monos 08/25/2023 09:09:51 6.4 1.0-11.0 (%) Final Eosinophils 08/25/2023 09:09:51 2.4 0.0-6.0 (%) Final Basos 08/25/2023 09:09:51 0.5 0.0-2.0 (%) Final Immature Granulocyte, Percent 08/25/2023 09:09:51 0.5 0.0-2.0 (%) Final Absolute Segs 08/25/2023 09:09:51 4.46 1.80-7.70 (K/uL) Final Lymphs, absolute 08/25/2023 09:09:51 0.76 Below low normal 1.00-4.80 (K/ul) Final Monos, Abs 08/25/2023 09:09:51 0.37 0.00-1.10 (K/uL) Final Eos, Abs 08/25/2023 09:09:51 0.14 0.00-0.70 (K/uL) Final Basos, Abs 08/25/2023 09:09:51 0.03 0.00-0.20 (K/uL) Final Immature Granulocytes, Number 08/25/2023 09:09:51 0.03 0.00-0.20 (K/uL) Final Performing Location LABORATORY [facility] - [address] [facility] [address]
--- OUTSIDE RECORDS SUMMARY | 2023-09-12 11:47 | External Medical Summary | Summary of Care ---
Author Name Unknown Organization [facility] Address [address] [facility] [place] [place] [address] Phone [phone] Care Team Providers Care Picker And Packer Name Role Phone Unavailable Primary Care Provider Unavailabl e Reason for Visit * Reason Onset Date Comments Test Results 08/26/2023 Encounter Details Date Type Department Care Team (Late st Contact Info) Description 08/26/2023 Telephone Family Medicine [address] [place] [phone] Nani Durant PA-C [address] [place] [address] [place] [phone] Test Results Allergies No known active allergiesdocumented as of this encounter (statuses as of 08/26/2023) Medications Medication Sig Dispensed Refills Start Date [...] Hour (toPROL XL)Indications:Osei ry artery disease involving [place] coronary artery of [place] heart without angina pectoris,Primary hypertension Take 1 [...] Hyperlipidemia LDL goal <100,Coronary artery disease involving [place] coronary artery of [place] heart without angina pectoris take one pill by mouth at bedtime 100 Tablet 1 12/29/2022 Active Losartan Potassium 50 MG Oral Tablet (Cozaar)Indications:P rimary hypertension,Type 2 diabetes mellitus with hemoglobin A1c goal of less than 7.0% (HCC),Stage 3a chronic kidney disease (HCC) Take 1 Tablet by mouth daily. In the morning. 90 Tablet 1 12/29/2022 Active OneTouch Delica Plus [id number]: Type 2 diabetes mellitus with hemoglobin A1c goal of less than 7.0% ([facility]) test up to 4 times daily 400 Each 1 02/03/2023 Active OneTouch Verio In Vitro Strip (Glucose Blood)Indications:Typ e 2 diabetes mellitus with hemoglobin A1c goal of less than 7.0% ([facility]) test up to 4 times daily 400 Strip 1 02/03/2023 Active Furosemide 40 MG Oral Tablet (Lasix)Indications:St age 3a chronic kidney disease (HCC),Primary hypertension Take 1 Tablet by mouth in the morning. In the morning.. 100 Tablet 1 04/08/2023 Active documented as of this encounter (statuses as of 08/26/2023) Active Problems Problem Noted Date Diagnosed Date BMI 35.0-35.9,adult 12/29/2022 Overview: 233 Hypertensive kidney disease with stage 3a chronic kidney disease 06/19/2022 Coronary artery disease invo lving [place] coronary artery of [place] heart without angina pectoris 05/28/2021 Overview: STEMI [facility] Hx of acute myocardial infarction of [...] as of this encounter (statuses as of 08/26/2023) Resolved Problems Problem Noted Date Diagnosed Date [...] as of this encounter (statuses as of 08/26/2023) Immunizations Name Administration Dates Next Due COVID-19 mRNA, LNP-s, No Pre serve, 2-Dose Series ([employer]) 03/12/2021,07/17/2020,06/26/2020 TD, Preservative Free 07/21/2018 TDAP (age [...] encounter Miscellaneous Notes * Telephone Encounter - Radha Araujo LPN - 08/26/2023 12:05 PM EDT Pt aware of Note Below He already took Lasix 40 mg Today , but will hold it Tomorrow. He states he sometimes will take extra if needed. He is aware of apt tomorrow and we will address Lab work at apt * Telephone Encounter - Nani Durant PA-C - 08/26/2023 10:59 AM EDT Please call pt. His kidney function is worse. Is he taking the lasix everyday? If so, he needs to hold this, as this can make his kidney function worse. He has appt with me tomorrow and can discuss this more at the appt. documented in this encounter Plan of Treatment Upcoming Encounters Date Type Department Care Team (Late st Contact Info) Description 08/27/2023 1:00 PM EDT Office Visit Family Medicine [address] [place] [address] Nani Durant PA-C [address] [place] [address] [place] [phone] Health Maintenance Due Date Last Done Comments Pneumococcal Vaccine: 65+ Years (1 of 2 - PCV) 1956 Colonoscopy 1996 Fecal Occult Blood Test 1996 Sigmoidoscopy 1996 Zoster Vaccines (1 of 2) 2001 Depression Screening 02/19/2021 02/20/2020 Diabetic Foot Exam 02/19/2021 02/20/2020, 11/16/2018 Cologuard 10/27/2021 10/27/2018 Colorectal Cancer Screening 10/27/2021 COVID-19 Vaccine ( season) 2022 03/12/2021, 07/17/2020, 06/26/2020 Diabetic Eye Exam 06/27/2023 06/26/2022, , 08/26/2018, Additional history exists Influenza Vaccine (FLU shot) (Season Ended) 2023 CKD PHOS USE SMARTSET 51768 12/24/202312/12, 07/31/2021, 06/05/2021 GFR 02/25/2024 08/25/2023, 12/12, 07/31/2021, Additional history exists HbA1c 02/25/2024 08/25/2023, 12/12, 06/26/2022, Additional history exists Albumin/Creatinine Ratio 08/24/2024 024, 06/26/2022, 06/05/2021, Additional history exists B-12 08/24/2024 08/25/2023, 06/11, 06/05/2021, Additional history exists CKD HGB USE SMARTSET [id number] 08/24/202408/24, 08/25/2023, 03/31/2022, Additional history exists DTaP,Tdap,and Td Vaccines (3 [...]
--- OUTSIDE RECORDS SUMMARY | 2023-09-12 11:47 | External Medical Summary | Summary of Care ---
Author Name Unknown Organization [facility] Address [address] [place] [facility] [address] Phone [phone] Care Team Providers Care Ecological Technical Officer Name Role Phone Unavailable Primary Care Provider Unavailabl e Encounter Details Date Type Department Care Team (Late st Contact Info) Description 08/19/2023 Orders Only PATIENT PORTAL DO NOT DELETE THIS DEPT USED BY [place] [id number] Allergies No known active allergiesdocumented as of this encounter (statuses as of 08/19/2023) Medications Medication Sig Dispensed Refills Start Date [...] Hour (toPROL XL)Indications:Osei ry artery disease involving [place] coronary artery of [place] heart without angina pectoris,Primary hypertension Take 1 [...] Hyperlipidemia LDL goal <100,Coronary artery disease involving [place] coronary artery of [place] heart without angina pectoris take one pill by mouth at bedtime 100 Tablet 1 12/29/2022 Active Losartan Potassium 50 MG Oral Tablet (Cozaar)Indications:P rimary hypertension,Type 2 diabetes mellitus with hemoglobin A1c goal of less than 7.0% ([facility]),Stage 3a chronic kidney disease (HCC) Take 1 Tablet by mouth daily. In the morning. 90 Tablet 1 12/29/2022 Active OneTouch Delica Plus [id number]: Type 2 diabetes mellitus with hemoglobin A1c goal of less than 7.0% ([facility]) test up to 4 times daily 400 Each 1 02/03/2023 Active OneTouch Verio In Vitro Strip (Glucose Blood)Indications:Typ e 2 diabetes mellitus with hemoglobin A1c goal of less than 7.0% ([facility]) test up to 4 times daily 400 Strip 1 02/03/2023 Active Furosemide 40 MG Oral Tablet (Lasix)Indications:St age 3a chronic kidney disease (HCC),Primary hypertension Take 1 Tablet by mouth in the morning. In the morning.. 100 Tablet 1 04/08/2023 Active documented as of this encounter (statuses as of 08/19/2023) Active Problems Problem Noted Date Diagnosed Date BMI 35.0-35.9,adult 12/29/2022 Overview: 233 Hypertensive kidney disease with stage 3a chronic kidney disease 06/19/2022 Coronary artery disease invo lving [place] coronary artery of [place] heart without angina pectoris 05/28/2021 Overview: STEMI [facility] Hx of acute myocardial infarction of inferior [...] as of this encounter (statuses as of 08/19/2023) Resolved Problems Problem Noted Date Diagnosed Date [...] as of this encounter (statuses as of 08/19/2023) Immunizations Name Administration Dates Next Due COVID-19 mRNA, LNP-s, No Pre serve, 2-Dose Series ([employer]) 03/12/2021,07/17/2020,06/26/2020 TD, Preservative Free 07/21/2018 TDAP (age [...] 1:00 PM EDT Office Visit Family Medicine [address] [phone] Nani Durant PA-C [address] [place] [address] [place] [phone] Health Maintenance Due Date Last Done Comments Pneumococcal Vaccine: 65+ Years (1 of 2 - PCV) 1956 Colonoscopy 1996 Fecal Occult Blood Test 1996 Sigmoidoscopy 1996 Zoster Vaccines (1 of 2) 2001 Depression Screening 02/19/2021 02/20/2020 Diabetic Foot Exam 02/19/2021 02/20/2020, 11/16/2018 Cologuard 10/27/2021 10/27/2018 Colorectal Cancer Screening 10/27/2021 COVID-19 Vaccine ( season) 2022 03/12/2021, 07/17/2020, 06/26/2020 CKD HGB USE SMARTSET [id number] 03/31/2023 03/31/2022, GFR 06/23/2023 12/23/2022, 07/13, 06/05/2021, Additional history exists HbA1c 06/23/2023 12/23/2022, 06/11, 03/31/2022, Additional history exists Albumin/Creatinine Ratio 06/27/2023 023, 06/05/2021, 02/20/2020 B-12 06/27/2023 06/26/2022, 05/15, 11/10/2018, Additional history exists Diabetic Eye Exam 06/27/2023 06/26/2022, , 08/26/2018, Additional history exists Influenza Vaccine (FLU shot) (Season Ended) 2023 CKD PHOS USE SMARTSET [id number] 12/24/202312/12, 07/31/2021, 06/05/2021 DTaP,Tdap,and Td Vaccines (3 [...]
--- OUTSIDE RECORDS SUMMARY | 2023-09-12 11:47 | External Medical Summary ---
Author Name Unknown Address Unknown Organization K01:[facility] [place] [address] [facility] [place] [address] Laboratory Report Ordering Provider Test Date Status ALLIE WILKINSON 08/25/2023 09:09:51 Final Observation Date Value Abnormality Reference (Units ) Status Triglyceride 08/25/2023 09:09:51 83 <=174 ( mg/dL) Final Triglyceride Reference Range s (mg/dL):
<150 Acceptable
150-174 Borderline high
175-499 High
>=500 Very high Cholesterol 08/25/2023 09:09:51 111 <200 (mg /dL) Final Total Cholesterol Reference Ranges (mg/dL):
<200 Desirable
200-239 Borderline high
>=240 High HDL 08/25/2023 09:09:51 36 Below low normal >39 (mg/dL) Final HDL Cholesterol Reference Ra nges (mg/dL):
>=60 High (Desirable)
<50 Low (Undesirable) For Females
<40 Low (Undesirable) For Males NON-HDL CHOLESTEROL 08/25/2023 09:09:51 75 <=159 (mg/dL) Final Non-HDL Cholesterol Referenc e Range (mg/dL):
<100 Target level for high risk ASCVD patient
<130 Optimal for general population
130-159 Near optimal for general population
160-189 Borderline High
190-219 High
>=220 Very High LDL, (calculated) 08/25/2023 09:09:51 58 <= 129 (mg/dL) Final LDL Cholesterol Reference Ra nges (mg/dL):
<70 Target level for high risk ASCVD patient
<100 Optimal for general population
100-129 Near optimal for general population
130-159 Borderline high
160-189 High
>=190 Very high Performing Location [facility]ORY [facility] - [address] [facility] [address]
--- OUTSIDE RECORDS SUMMARY | 2023-09-12 11:48 | External Medical Summary | Summary of Care ---
Author Name Unknown Organization [facility] Address [address] [place] [address] Phone [phone] Care Team Providers Care Sheriff Sergeant Name Role Phone Clifton Garcia MD Primary Care Provider [phone] Reason for Visit * Reason Onset Date Comments Medication Refill 04/07/2023 Encounter Details Date Type Department Care Team (Late st Contact Info) Description 04/07/2023 Refill Family Medicine [address] [address] Clifton Garcia MD [address] [place] [address] [place] [id number] Stage 3a chronic kidney disease; Primary hypertension Allergies No known active allergiesdocumented as of this encounter (statuses as of 04/08/2023) Medications Medication Sig Dispensed Refills Start Date [...] Hour (toPROL XL)Indications:Cor onary artery disease involving [place] coronary artery of [place] heart without angina pectoris,Primary hypertension Take 1 [...] ns:Hyperlipidemia LDL goal <100,Coronary artery disease involving [place] coronary artery of [place] heart without angina pectoris take one pill by mouth at bedtime 100 Tablet 1 12/29/2022 Active Losartan Potassium 50 MG Oral Tablet (Cozaar)Indication s:Primary hypertension,Type 2 diabetes mellitus with hemoglobin A1c goal of less than 7.0% (HCC),Stage 3a chronic kidney disease (HCC) Take 1 Tablet by mouth daily. In the morning. 90 Tablet 1 12/29/2022 Active OneTouch Delica Plus [id number] ns:Type 2 diabetes mellitus with hemoglobin A1c [...] the morning.. 100 Tablet 1 04/08/2023 Active Furosemide 40 MG Oral Tablet (Lasix)Indications :Stage 3a chronic kidney disease (HCC),Primary hypertension TAKE 1 TABLET BY MOUTH EVERY MORNING 100 Tablet 0 11/05/2022 04/07/2023 Discontinued (Refill) documented as of this encounter (statuses as of 04/08/2023) Active Problems Problem Noted Date Diagnosed Date BMI 35.0-35.9,adult 12/29/2022 Overview: 233 Hypertensive kidney disease with stage 3a chronic kidney disease 06/19/2022 Coronary artery disease invo lving [place] coronary artery of [place] heart without angina pectoris 05/28/2021 Overview: STEMI [facility] Hx of acute myocardial infarction of inferior [...] as of this encounter (statuses as of 04/08/2023) Resolved Problems Problem Noted Date Diagnosed Date [...] as of this encounter (statuses as of 04/08/2023) Immunizations Name Administration Dates Next Due COVID-19 [...] encounter Miscellaneous Notes * Telephone Encounter - Grzegorz Hinds [facility] - 04/08/2023 11:18 AM ESTSigned Prescriptions: Disp Refills Furosemide 40 MG Oral Tablet (Lasix) 100 Ta*1 Sig: Take 1 Tabletby mouth in the morning. In the morning..Authorizing Provider: CLIFTON GARCIA User: GRZEGORZ HINDS * Telephone Encounter - Ladi Garland, exercise teacher - 04/07/2023 1:40 PM EST Did you pend patient's preferred pharmacy and medication before forwarding?yes Pharmacy: [id number] [address] [facility] Pending Prescriptions: Disp Refills Furosemide 40 MG Oral Tablet (Lasix) 100 Ta*0 Sig: Take 1 Tablet by mouth in the morning. In the morning.. Last Visit: 12/29/2022 (in office), Visit date not found (telemedicine) Next Visit: 07/01/2023 If no future appointments scheduled, and last appointment is greater than a year ago, please schedule patient for a follow-up appointment Last date the medication was ordered: 11/05/2022 Is this request for a controlled substance?No Urine Drug Screen:No results found for this or any previous visit. Patient Phone Numbers Labs: Lab Results Component Value Date/Time CREAT 1.5 (H) 12/23/2022 09:30 AM CREAT 1.5 (H) 02/20/2020 08:42 AM POTASSIUM 5.2 (H) 12/23/2022 09:30 AM POTASSIUM 4.7 02/20/2020 08:42 AM LDLCALC 38 03/31/2022 10:01 AM LDLCALC 60 02/20/2020 08:42 AM LDLDIRECT NOT APPLICABLE 02/20/2020 08:42 AM ALT 14 12/23/2022 09:30 AM HGBA1C 5.9 (H) 12/23/2022 09:30 AM HGBA1C 6.7 (H) 02/20/2020 08:42 AM documented in this encounter Plan of Treatment Upcoming Encounters Date Type Department Care Team (Late st Contact Info) Description 07/01/2023 9:20 AM EDT Office Visit Family Medicine [address] [place] [address] Dunia Smalls MD [address] [place] [address] [place] [address] Health Maintenance Due Date Last Done Comments Pneumococcal Vaccine: 65+ Years (1 - PCV) 1957 Colonoscopy 1996 Fecal Occult Blood Test 1996 Sigmoidoscopy 1996 Zoster Vaccines (1 of 2) 2001 Hepatitis B (1 of 3 - Risk 3-dose series) 2011 Depression Screening 02/19/2021 02/20/2020 Diabetic Foot Exam 02/19/2021 02/20/2020, 11/16/2018 Cologuard 10/27/2021 10/27/2018 Colorectal Cancer Screening 10/27/2021 COVID-19 Vaccine ( season) 2022 03/12/2021, 07/17/2020, 06/26/2020 Influenza Vaccine (FLU shot) (#1) 2022 CKD HGB USE SMARTSET 76438 03/31/2023 03/31/2022, GFR 06/23/2023 12/23/2022, 04/2 , 06/05/2021, Additional history exists HbA1c 06/23/2023 12/23/2022, 06/11, 03/31/2022, Additional history exists Albumin/Creatinine Ratio 06/27/2023 023, 06/05/2021, 02/20/2020 B-12 06/27/2023 06/26/2022, 05/15, 11/10/2018, Additional history exists Diabetic Eye Exam 06/27/2023 06/26/2022, , 08/26/2018, Additional history exists CKD PHOS USE SMARTSET 75139 12/24/202312/12, 07/31/2021, 06/05/2021 DTaP,Tdap,and Td Vaccines (3 [...] Diagnoses Diagnosis Stage 3a chronic kidney disease Primary hypertension Unspecified essential hypertension documented in this encounter Care Teams Sheriff Sergeant Relationship Specialty Start Date End Date Clifton Garcia MD [address] [place] [address] [place] [id number] PCP - General Family Medicine 05/03/15 documented as of this encounter
[2023-09-12] MEDS: METOPROLOL TARTRATE 25 MG TAB PO SCH (12:48)
--- NOTE | 2023-09-12 16:43 | Hospitalist Progress Note ---
Date of Service September 12, 2023 Assessment & Plan (1) Fluid overload, unspecified: Plan: 73-year-old gentleman with history of CAD, status post stent placement, diabetes type 2, hypertension, CKD stage III, obesity, presenting with progressive weight gain and leg edema x few months. He is being managed for the following: Volume overload, ascites, lower extremity edema likely multifactorial Acute on chronic CHF with reduced ejection fraction Patient presented with progressive volume overload, abdominal distention, occasional short of breath Last echo showing EF of 40%, right ventricular systolic dysfunction Echo this admission showing EF of 50 to 55%. Nephrology evaluating, on Lasix and albumin. Low-sodium diet, fluid restriction of 1.5 L a day. Limit APAP to less than 2 g a day. Cardiology on board, metoprolol at reduced dose, appreciate recommendation. Currently losartan on hold due to low normal blood pressure. Liver cirrhosis Seen on CT abdomen and pelvis, new diagnosis. LFTs okay GI evaluated, follow-up hepatology as an outpatient. Recommends ultrasound-guided paracentesis on Thursday. Acute kidney injury on CKD stage III: Management per above, nephro on board. Right toe infection: erythema and pus noted. Wound and bl Cx. WOCN consult. rocephin 09/11. Follow cultures. Sinus bradycardia: Heart rate 50s, Metoprolol dose decreased from 100 mg daily to 25 mg daily. Continue telemetry monitoring. History of CAD, status post stent placement Hypertension Continue aspirin Resume other cardiac medications as able. DVT prophylaxis: Heparin subcu CODE STATUS full code Admission and Anticipated Discharge Date Admission Date: September 11, 2023 Subjective patient was seen and examined at bedside. Patient was sitting up in chair, on room air, NAD, resting comfortably. Patient's at bedside who was also updated on plan of care, answered all her questions. Patient reports no difficulty in breathing, denies abdominal pain, denies febrile illness. Patient does have right toe wound infection, will collect blood and wound culture, put him on antibiotic. Patient denies other review of symptoms. Physical Exam Physical Exam: General- oriented x 3, not in distress, speaks in sentences with no effort or accessory muscle use Eyes- anicteric Neck- no JVD Lungs- clear breath sounds bilaterally, no rales/wheezes Heart- normal rate, regular rhythm; no murmurs Abdomen- normal bowel sounds, Distended, tense ascites, nontender Extremities- Grade 2 lower extremity edema with mild erythema but no warmth, right great toes w/ infected wound. Neuro- alert, oriented x 3; no gross focal neurologic deficits Skin- warm & dry Results & Data Results & Data Vital Signs (Past 12 Hours) Vital Signs Temp Pulse Pulse Resp BP Pulse Ox O2 Del Method 09/12/23 14:00 61 09/12/23 12:02 36.4 C L 63 18 124/72 93 Room Air 09/12/23 07:36 36.5 C 61 19 116/72 91 Room Air 09/12/23 07:19 Room Air 09/12/23 07:00 65 (1) Fluid overload, unspecified Hypervolemia type: other Qualified Code(s): E87.79 - Other fluid overload
[2023-09-12] MEDS: cefTRIAXone SODIUM 2,000 MG/50 ML BAG IV SCH (17:41)
[2023-09-12] MEDS: FUROSEMIDE 40 MG/4 ML VIAL IV SCH (17:42)
--- OUTSIDE RECORDS SUMMARY | 2023-09-12 19:41 | External Medical Summary | Summary of Care ---
Author Name Unknown Organization [facility] Address [address] [place] [address] Phone [phone] Care Team Providers Care Shear Setter Name Role Phone Dunia Smalls MD Primary Care Provide r Reason for Visit * Reason Comments Re-Check Encounter Details Date Type Department Care Team (Late st Contact Info) Description 09/11/2023 8:40 AM EDT Office Visit Family Medicine [address] [address] Dunia Smalls MD [address] [place] [address] [place] [id number] Chronic systolic heart failure (HCC)*; Acute heart failure, unspecified heart failure type (HCC); USMAN (acute kidney injury) ([facility]) Allergies No known active allergiesdocumented as of this encounter (statuses as of 09/11/2023) Medications Medication Sig Dispensed Refills Start Date [...] hemoglobin A1c goal of less than 7.0% ([facility]) TAKE ONE TABLET BY MOUTH IN THE MORNING AND IN THE EVENING WITH MEALS 180 Tablet 1 10/14/2022 Active OneTouch Delica Plus [id number]: Type 2 diabetes mellitus with hemoglobin A1c goal of less than 7.0% ([facility]) test up to 4 times daily 400 Each 1 02/03/2023 Active OneTouch Verio In Vitro Strip (Glucose Blood)Indications:Typ e 2 diabetes mellitus with hemoglobin A1c goal of less than 7.0% ([facility]) test up to 4 times daily 400 Strip 1 02/03/2023 Active Furosemide 40 MG Oral Tablet (Lasix)Indications:St age 3a chronic kidney disease (HCC),Primary hypertension Take 1 Tablet by mouth in the morning. In the morning.. 100 Tablet 1 04/08/2023 Active Metoprolol Succinate ER 100 MG Oral Tablet Extended Release 24 Hour (toPROL XL)Indications:Osei ry artery disease involving [place] coronary artery of [place] heart without angina pectoris,Primary hypertension Take 1 Tablet by mouth in the morning. 100 Tablet 3 09/02/2023 Active Losartan Potassium 50 MG Oral Tablet (Cozaar)Indications:P rimary hypertension,Type 2 diabetes mellitus with hemoglobin A1c goal of less than 7.0% ([facility]),Stage 3a chronic kidney disease ([facility]) Take 1 Tablet by mouth daily. In the morning. 90 Tablet 1 09/02/2023 Active documented as of this encounter (statuses as of 09/11/2023) Active Problems Problem Noted Date Diagnosed Date BMI 35.0-35.9,adult 12/29/2022 Overview: 233 Hypertensive kidney disease with stage 3a chronic kidney disease 06/19/2022 Coronary artery disease invo lving [place] coronary artery of [place] heart without angina pectoris 05/28/2021 Overview: STEMI [facility] Hx of acute myocardial infarction of inferior [...] as of this encounter (statuses as of 09/11/2023) Resolved Problems Problem Noted Date Diagnosed Date [...] as of this encounter (statuses as of 09/11/2023) Immunizations Name Administration Dates Next Due COVID-19 mRNA, LNP-s, No Pre serve, 2-Dose Series (Avancen MOD) 03/12/2021,07/17/2020,06/26/2020 TD, Preservative Free 07/21/2018 TDAP, Age 7 and older, IM (Adacel) 10/11/2009 documented as of this encounter Social [...] Sign Reading Time Taken Comments Blood Pressure 140/84 09/11/2023 8:28 AM EDT Pulse 65 09/11/2023 8:28 AM EDT Temperature 35.7 C (96.3 F) 09/11/2023 8:28 AM ED T Respiratory Rate - - Oxygen Saturation 97% 09/11/2023 8:28 AM EDT Inhaled Oxygen Concentration - - Weight 129.4 kg (285 lb 3.2 oz) 09/11/2023 8:28 AM EDT Height - - Body Mass Index 43.36 08/27/2023 1:03 PM EDT documented in this encounter Progress Notes * Dunia Smalls MD - 09/11/2023 8:59 AM EDT Subjective: HPI: Eliseo Aj is a 73 year old male with hx of DMII, CKD III, HTN, HLD, CAD s/p stent, HFmrEF seen for DMII: - on metformin 500mg daily not BID CAD s/p stent: - on aspirin - not taking statin due to muscle pain HTN/HLD: - on lasix 40mg daily, losartan 50mg daily and metoprolol ER 100mg daily HFmrEF: - last echo showed EF 40-44% (2018) -per pt he is having worsening leg swelling (up to the thighs) and abd edema - started 5 months ago - also having SOB with exertion - no orthopnea - taking lasix 40mg daily - gained 50 lbs in last 8 months - last Cr was elevated (went from 1.5 to 2.2) ----- does not drink enough water - urinating well - no hx of etoh abuse Patient Active Problem List Diagnosis ADVANCE DIRECTIVE INFORMATION Primary hypertension BMI 35.0-35.9,adult Hyperlipidemia LDL goal <100 Type 2 diabetes mellitus with hemoglobin A1c goal of less than 7.0% (HCC) DM type 2 with diabetic peripheral neuropathy (HCC) Stage 3a chronic kidney disease Type 2 diabetes mellitus with stage 3a chronic kidney disease, without long-term current use of insulin (HCC) Coronary artery disease involving [place] coronary artery of [place] heart without angina pectoris Hx of acute myocardial infarction of inferior wall Hypertensive kidney disease with stage 3a chronic kidney disease (HCC) Current Outpatient Medications Medication Sig Dispense Refill Multi-Vitamins Oral Tablet Take 1 Tablet by mouth in the morning. Aspirin Low Dose 81 MG Oral Tablet Delayed Release (aspirin enteric coated) TAKE 1 TABLET BY MOUTH EVERY MORNING 90 Tablet 1 metFORMIN HCl 500 MG Oral Tablet (Glucophage) TAKE ONE TABLET BY MOUTH IN THE MORNING AND IN THE EVENING WITH MEALS 180 Tablet 1 OneTouch Delica Plus [id number] test up to 4 times daily 400 Each 1 OneTouch Verio In Vitro Strip (Glucose Blood) test up to 4 times daily 400 Strip 1 Furosemide 40 MG Oral Tablet (Lasix) Take 1 Tablet by mouth in the morning. In the morning.. 100 Tablet 1 Metoprolol Succinate ER 100 MG Oral Tablet Extended Release 24 Hour (toPROL XL) Take 1 Tablet by mouth in the morning. 100 Tablet 3 Losartan Potassium 50 MG Oral Tablet (Cozaar) Take 1 Tablet by mouth daily. In the morning. 90 Tablet 1 No current facility-administered medications for this visit. Past Medical History: Diagnosis Date Acid reflux BMI 31.0-31.9,adult Coronary artery disease involving [place] coronary artery of [place] heart without angina pectoris 05/28/2021 [facility] DM type 2 with diabetic peripheral neuropathy (HCC) DM type 2, goal HbA1c < 7% (HCC) Encounter for hepatitis C screening test for low risk patient 11/10/2018 negative Hiatal hernia HTN, goal below 140/90 Hx of acute myocardial infarction of inferior wall 05/28/2021 Hyperlipidemia LDL goal <100 Optic neuritis 2002 OD [address]ic [address] elevation myocardial infarction involving right coronary artery (HCC) 05/28/2021 99% mid RCA, OBIE, 805 prox RCA, diffuse 80% LAD, 90% D1, 95% OM3 Past Surgical History: Procedure Laterality Date ARM/ELBOW SUBQ TUMOR REMOVAL, UNDER 3 CM CARDIAC CATH-CARDIOLOGY ONLY 05/28/2021 80% prox RCA, 99% RCA stented with OBIE, diffuse 80% LAD, 90% D1, 95% OM3 CARDIAC CATHETERIZATION REPORT 05/31/2021 OBIE LAD [facility] ECHO, COMPLETE (2D), TRANS-THORACIC 01/11/2019 normal LV size, EF 40-44%, grade I diastolic dysfunction, LA normal size REMOVE CATARACT, INSERT LENS PROSTH Left 2011 Dr Weir REMOVE CATARACT, INSERT LENS PROSTH Right 03/2016 Dr. Weir REMOVE TONSILS & ADENOIDS, UNDER 12 Review of patient's allergies indicates: No Known Allergies Family History Problem Relation Name Age of Onset Cancer Mother Pancreatic Heart Disorder Father Heart attack Heart Disorder Brother Stent Hypertension Brother Diabetes Grandmother (Paternal) Eye Problems None Denies family hx of AMD, RD, glaucoma, or blindness Stroke None Thyroid Disorder None Social History Tobacco Use Smoking status: Never Smokeless tobacco: Never Substance Use Topics Alcohol use: No Vaping/E-Cigarette Use Vaping/E-Cigarette Substances Vaping/E-Cigarette Devices ROS: -Per HPI OBJECTIVE: BP 140/84 | Pulse 65 | Temp 35.7 C (96.3 F) | Wt 129.4 kg (285 lb 3.2 oz) | SpO2 97% | BMI 43.36 kg/m | BSA 2.49 m PHYSICAL EXAM: Vitals are reviewed General:. NAD, well developed HEENT:. Normal Conjunctiva, EOMI Cardiac:. Normal S1, S2, no murmur Lungs:.No crackles, CTA Abd:.distended abd with pitting edema MSK:.b/l LE severe pitting edema clear drainage, Normal gait Psych:. AAOx3, normal affect ASSESSMENT/PLAN: Pt has s/s of acute heart failure - due to severe pitting edema and SOB with USMAN sent the pt to the ER for IV diuretics with close monitoring of BMP - informed the ER Chronic systolic heart failure (HCC) (Primary) Acute heart failure, unspecified heart failure type (HCC) USMAN (acute kidney injury) (HCC) I spent a total of 40-54 minutes (exact time 45 mins) on the date of service in preparation, delivery, and documentation of the care provided to Eliseo Aj excluding any time spent in the performance of separately billed services. Dunia Smalls MD Family medicine, [address] [address] documented in this encounter Nursing Notes * Sandra Aviles CMA - 09/11/2023 8:26 AM EDT He was a patient of Dr. Farias and he is here to establish with Dr. Rodriguez today. He wants to know why his legs are so swollen and he thinks his abdomen is swollen is too. It is affecting his ability to function. He is having SOB. He is also having bad neuropathy. documented in this encounter Plan of Treatment Upcoming Encounters Date Type Department Care Team (Late st Contact Info) Description 04/08/2024 7:40 AM EST Office Visit Family Medicine [address] [address] Dunia Smalls MD [address] [place] [address] [place] [id number] Health Maintenance Due Date Last Done Comments Pneumococcal Vaccine: 65+ Years (1 of 2 - PCV) 1957 Colonoscopy 1996 Fecal Occult Blood Test 1996 Sigmoidoscopy 1996 Zoster Vaccines (1 of 2) 2001 Depression Screening 02/19/2021 02/20/2020 Cologuard 10/27/2021 10/27/2018 Colorectal Cancer Screening 10/27/2021 COVID-19 Vaccine ( season) 2022 03/12/2021, 07/17/2020, 06/26/2020 Influenza Vaccine (FLU shot) (Season Ended) 2023 CKD PHOS USE SMARTSET [id number] 12/24/202312/12, 07/31/2021, 06/05/2021 GFR 02/25/2024 08/25/2023, 12/12, 07/31/2021, Additional history exists HbA1c 02/25/2024 08/25/2023, 12/12, 06/26/2022, Additional history exists Albumin/Creatinine Ratio 08/24/2024 024, 06/26/2022, 06/05/2021, Additional history exists B-12 08/24/2024 08/25/2023, 06/11, 06/05/2021, Additional history exists CKD HGB USE SMARTSET 72353 08/24/202408/24, 08/25/2023, 03/31/2022, Additional history exists Diabetic [...] as of this encounter Visit Diagnoses Diagnosis Chronic systolic heart failure (HCC)- Primary Chronic systolic heart failure Acute heart failure, unspecified heart failure type (HCC) USMAN (acute kidney injury) (HCC) Acute kidney failure, unspecified documented in this encounter Care Teams Shear Setter Relationship Specialty Start Date End Date Dunia Smalls MD [address] [place] [address] [place] [phone] PCP - General Family Medicine 09/02/23 documented as of this encounter"
[2023-09-12 22:43] LABS: Appearance Urine Clear (Clear); Bilirubin Urine Negative (Negative); Blood Urine Negative (Negative); Color Urine Yellow; Glucose Urine UA Negative (Negative); Ketones Urine Negative (Negative); Leukocyte Esterase Urine Negative (Negative); Nitrite Urine Negative (Negative); Protein Urine Negative (Negative); Urobilinogen Urine Negative (Negative)
[2023-09-12 22:56] LABS: Total Protein Urine Random 15.4 mg/dl (0-11.9)
[2023-09-12 23:01] LABS: Creatinine Urine Random 30.5 mg/dl; Protein Creatinine Ratio Urine 0.5 (0-0.2)
[2023-09-13 06:33] LABS: Hematocrit (blood only) 33.1 % (42.0-52.0); Hemoglobin 10.6 g/dl (14.0-18.0); Mean Corpuscular Hemoglobin 27.5 pg (25.0-34.0); Mean Platelet Volume 10.4 fL (9.4-12.4); Platelet Count 192 K/uL (130-400); RDW Coefficient of Variation 15.9 % (11.5-14.5); RDW Standard Deviation 49.3 fL (36.4-46.3); Red Blood Count 3.85 M/uL (4.70-6.10); White Blood Count 4.72 K/ul (4.8-10.8)
--- NOTE | 2023-09-13 06:51 | Cardiology Progress Note ---
Date of Service September 13, 2023 Assessment & Plan (1) Cirrhosis: (2) Ascites: (3) Ischemic cardiomyopathy: (4) Tgelq-cb-asdgvpr kidney injury: Plan Impression: 73 year old male with history of ischemic cardiomyopathy presents with acute fluid retention primarily located in the abdomen and legs. CT of the abdomen/pelvis revealing large amt of ascites; findings concerning for Cirrhosis. PLAN: Cirrhosis/Ascites: With evidence of hepatic congestion recommend proceeding with secondary workup per GI- possible plans for paracentesis on 09/14/2023. Appreciate GI recommendations. Ischemic Cardiomyopathy: CKD: Echo showing improvement in LVEF (50-55%), previously 45%. Hypervolemia does not appear to be due to an acute cardiovascular issue. -Currently being diuresed per the recommendations of nephrology with IV Lasix 40 mg TID + Albumin. Appreciate assistance. -2g sodium diet. Daily standing weights. Strict I/O. Replace electrolytes to a K goal of 4.0 and mag goal of 2.0 -Losartan on hold due to hypotension. -Continue metoprolol tartrate 25 mg twice daily, consider transitioning to succinate formulary pending patient response. Case discussed with Dr. Vaughan. Further recommendations pending assessment. I spent a total of 40 minutes on the date of service in preparation, delivery, and documentation of the care provided to the patient excluding any time spent in the performance of separately billed services. MONA Veras Department of Cardiology, [facility] This chart was completed in part utilizing Speech Voice Recognition Software. Grammatical errors, random word insertions, pronoun errors, and incomplete sentences are an occasional consequence of this system due to software limitations, ambient noise, and hardware issues. Any formal questions or concerns about the content, text, or information contained within the body of this dictation should be directly addressed to the provider for clarification. Admission and Anticipated Discharge Date Admission Date: September 11, 2023 Supervising Physician Co-Signing Physician Notes I have personally performed a history and physical examination on the patient. I have reviewed the advance practitioner's documentation, and I agree with, and take responsibility for the plan of care. 73-year-old patient admitted with progressive fluid retention over a 3-month period with significant abdominal ascites and lower extremity edema. History of ischemic cardiomyopathy with low normal LV systolic function and mild to moderate mitral regurgitation. Most recent echocardiogram demonstrating improvement of LV function. Mildly negative fluid balance since admission. Creatinine trending upward slightly. Nephrology input appreciated. Continue IV diuretic therapy. Monitor fluid balance, daily weight, GFR, and electrolytes. Patient is not a candidate for Aldactone due to renal insufficiency. Losartan on hold due to hypotension. Metoprolol restarted at reduced dose, 25 mg twice daily 09/12/2023 (outpatient dose 100 mg daily). Monitor telemetry. GI evaluation regarding cirrhosis and possible paracentesis 09/14/2023. I spent a total of 30 minutes on the date of service in preparation, delivery, and documentation of the care provided to this patient, excluding any time spent in the performance of separately billed services. Subjective 73-year-old patient admitted with progressive fluid retention over a 3-month period with significant abdominal ascites and lower extremity edema. History of ischemic cardiomyopathy with low normal LV systolic function and mild to moderate mitral regurgitation. Most recent echocardiogram demonstrating improvement of LV function. CT of the abdomen/pelvis revealing large amt of ascites; findings concerning for Cirrhosis. 09/12/2023: Volume status being managed by nephrology, patient on IV Lasix 40 mg TID Losartan and metoprolol on hold due to hypotension and bradycardia; metoprolol tartrate was restarted at a lower dose, 25 mg twice daily (outpatient dose of 100 mg daily) GI evaluation regarding cirrhosis with possible paracentesis 09/14/2023. 09/13/2023: Telemetry: SR 60-70s I/O: -507 mL Weight: 131.2 kg >> 127.8 kg >> 126.9 kg Labs: Worsening scr 2.1>>2.34 (nephrology following) Upon entrance into the room patient resting comfortably in the chair. No acute concerns. Denies chest pain, shortness of breath. Main concern is regarding abdominal distention. Feels full and bloated- minimal improvement over night. Ongoing lower extremity edema, per the patient this is improved. Has chronic or thopnea. No PND. No palpitations or lightheadedness. Review of Systems Review of Systems: All systems reviewed & are unremarkable except as noted in HPI & below Physical Exam Constitutional: well developed, well nourished and + obese; no acute distress Eyes: PERRL, conjunctivae normal, anicteric sclerae Neck: normal visual inspection and trachea midline Respiratory: normal respiratory effort; no respiratory distress and no cough Auscultation: + diminished lung sounds; no rales, no rhonchi and no wheezes Cardiovascular: Rate/Rhythm: regular rate and regular rhythm Heart Sounds: normal S1 and normal S2; no murmur Vessels: + JVD Extremities: + edema (+2-3 BLLE pitting edema with venous changes ) Gastrointestinal (Abdomen): Inspection/Auscultation: + abdomen distended Percussion/Palpation: + ascites and + abdomen firm; abdomen nontender Neurologic: PERRL, EOMI, accommodation nl, no face palsy, no dysarthria Psychiatric: A+Ox3, euthymic affect Results & Data Vital Signs (Past 12 Hours) Vital Signs Temp Pulse Pulse Resp BP Pulse Ox O2 Del Method 09/13/23 03:52 36.5 C 69 18 103/60 95 Room Air 09/12/23 23:00 62 09/12/23 22:32 36.6 C 71 18 122/82 94 Room Air 09/12/23 19:55 36.5 C 68 18 115/72 93 Room Air 09/12/23 19:55 Room Air 09/12/23 19:09 36.4 C L 60 18 121/71 93 Room Air Laboratory Results CBC 09/13/23 Range/Units 05:26 WBC 4.72 L (4.8-10.8) K/ul RBC 3.85 L (4.70-6.10) M/uL Hgb 10.6 L (14.0-18.0) g/dl Hct 33.1 L (42.0-52.0) % Plt Count 192 (130-400) K/uL Comprehensive Metabolic Panel 09/12/23 09/13/23 Range/Units 06:26 05:26 Sodium 141 141 (136-145) mmol/L Potassium 5.0 5.0 (3.5-5.1) mmol/L Chloride 112 H 111 H (98-107) mmol/L Carbon Dioxide 23 23 (21-32) mmol/L BUN 79 H 84 H (6-23) mg/dl Creatinine 2.16 H 2.34 H (0.6-1.4) mg/dl Glucose 86 72 (70-99(Fasting)) mg/dl Calcium 9.0 8.8 (8.6-10.3) mg/dl Intake and Output 06/01/24 06/02/24 06/02/24 22:59 06:59 14:59 Intake Total 1270 / 1470 100 / 100 Output Total 1502 / 1702 325 / 325 Balance -232 / -232 -225 / -225 Intake: IV 250 / 450 100 / 100 Albumin 25% 25 gm In 100 ml @ 200 / 300 100 / 100 50 mls/hr IV Q8H [facility] Rx#: [id number] cefTRIAXone SODIUM 2,000 mg In 50 / 50 50 ml @ 100 mls/hr IV Q24H [facility] Rx#:[id number] Oral 1020 / 1020 Output: Urine 1500 / 1700 325 / 325 # Bowel Movements 2 / 2 Other: Weight 126.9 kg Weight Measurement Method Standing Scale (4) Bcevd-tj-pzdfgmo kidney injury Acute renal failure type: unspecified
[2023-09-13 07:40] LABS: BUN Creatinine Ratio 35.9 (10-20); Calcium 8.8 mg/dl (8.6-10.3); Creatinine Clr Calc Pharmacy 37.6 ml/min; Est GFR (Non-African American) 26.8 ml/min; Magnesium 2.4 mg/dl (1.7-2.4); Phosphorus 4.5 mg/dl (2.5-4.9)
--- NOTE | 2023-09-13 13:07 | Nephrology Progress Note ---
Date of Service September 13, 2023 Assessment & Plan (1) Cbgkm-xq-kvyhpfc kidney injury: Plan: baseline creatinine 1.5; presenting creatinine 2.2, w/ minimal uptick since admission. presented w/ massive volume OL including 50 lb wt gain and w/ hypotension. 500 mg proteinuria; Urine sediment bland > no nephritic or nephrotic syndrome. st weight 09/11 127.8; on 09/12 126.9 minimal diuresis to date >> about 600 mL negative so far on admission even though he's lasix naive For OP GI w/u and mgt of liver cirrhosis; for possible paracentesis IR on 09/13; cardiology does not believe this is active cardiac issue; LV function actually better than prior -continue lasix 40 mg IV dosed to not disrupt sleep tid > probably needs intensified lasix but would not do so w/ paracentesis pending until we see how large volume removal affects renal function -will d/c albumin for now > can use periprocedural for parancentesis as needed >standing weight appreciated and needs to happen DAILY >cont <2 gm daily Na diet and 1.5L FR -low threshold to start miguelina receptor antagonist complex patient w/ high risk for morbidity/mortality related to management of renal dysfunction, volume overload. Admission and Anticipated Discharge Date Admission Date: September 11, 2023 Subjective no interval events. not clear if will get paracentesis in am or not. leg edema improving and pt able to ambulate now. no increasing abd girth - same as it was. denies worsening sob. Review of Systems 2 Review of Systems: All systems reviewed & are unremarkable except as noted in Subjective Physical Exam 2 Constitutional: well developed and well nourished; no acute distress (sitting up in chair on RA) Eyes: EOM intact bilaterally ENMT: Ears: no external ear abnormality Nose: no external nose abnormality Mouth: + dry oral mucous membranes Neck: no nuchal rigidity Respiratory: normal respiratory effort Auscultation: + diminished lung sounds (markedly); no crackles and no wheezes Cardiovascular: Rate/Rhythm: regular rate and regular rhythm Extremities: + edema (3+ and less taut to hips) Gastrointestinal (Abdomen): Inspection/Auscultation: + abdomen distended and normal bowel sounds Percussion/Palpation: abdomen soft, + ascites and + dullness to percussion; abdomen nontender Musculoskeletal: Extremities: strength 5/5 throughout Skin: no rashes, warm and dry (some broken skin/ skin breakdown BL pretibial) Results & Data Vital Signs (Past 12 Hours) Vital Signs Temp Pulse Pulse Resp BP Pulse Ox O2 Del Method 09/13/23 10:52 36.7 C 55 L 18 104/66 94 Room Air 09/13/23 08:00 68 09/13/23 07:06 36.7 C 69 18 108/68 95 Room Air 09/13/23 03:52 36.5 C 69 18 103/60 95 Room Air Laboratory Results 09/13/23 05:26 09/13/23 05:26 (1) Cjbfd-nf-btyusfd kidney injury Acute renal failure type: unspecified
--- NOTE | 2023-09-13 15:11 | Hospitalist Progress Note ---
Date of Service September 13, 2023 Assessment & Plan (1) Fluid overload, unspecified: Plan: 73-year-old gentleman with history of CAD, status post stent placement, diabetes type 2, hypertension, CKD stage III, obesity, presenting with progressive weight gain and leg edema x few months. He is being managed for the following: Volume overload, ascites, lower extremity edema likely multifactorial Acute on chronic CHF with reduced ejection fraction Patient presented with progressive volume overload, abdominal distention, occasional short of breath Last echo showing EF of 40%, right ventricular systolic dysfunction Echo this admission showing EF of 50 to 55%. Nephrology evaluating, on Lasix and albumin. Low-sodium diet, fluid restriction of 1.5 L a day. Limit APAP to less than 2 g a day. Cardiology on board, metoprolol at reduced dose, appreciate recommendation. Currently losartan on hold due to low normal blood pressure. Liver cirrhosis Seen on CT abdomen and pelvis, new diagnosis. LFTs okay GI evaluated, follow-up hepatology as an outpatient. Recommends ultrasound-guided paracentesis on Thursday. Acute kidney injury on CKD stage III: Management per above, nephro on board. Right toe infection: erythema and pus noted. Wound and bl Cx. WOCN consult. rocephin 09/11. Follow cultures. Sinus bradycardia: Heart rate 50s, Metoprolol dose decreased from 100 mg daily to 25 mg daily. Continue telemetry monitoring. History of CAD, status post stent placement Hypertension Continue aspirin Resume other cardiac medications as able. DVT prophylaxis: Heparin subcu CODE STATUS full code Admission and Anticipated Discharge Date Admission Date: September 11, 2023 Subjective patient was seen and examined at bedside. Patient was sitting up in chair by window, on room air, NAD, resting comfortably. Patient's arrived at bedside who was also updated on plan of care, answered all her questions. Patient reports no difficulty in breathing, denies abdominal pain, denies febrile illness. Patient denies other review of symptoms. Physical Exam Physical Exam: General- oriented x 3, not in distress, speaks in sentences with no effort or accessory muscle use Eyes- anicteric Neck- no JVD Lungs- clear breath sounds bilaterally, no rales/wheezes Heart- normal rate, regular rhythm; no murmurs Abdomen- normal bowel sounds, Distended, tense ascites, nontender Extremities- Grade 2 lower extremity edema with mild erythema but no warmth, right great toes w/ infected wound. Neuro- alert, oriented x 3; no gross focal neurologic deficits Skin- warm & dry Results & Data Results & Data Vital Signs (Past 12 Hours) Vital Signs Temp Pulse Pulse Resp BP Pulse Ox O2 Del Method 09/13/23 14:53 36.9 C 62 18 108/70 95 Room Air 09/13/23 10:52 36.7 C 55 L 18 104/66 94 Room Air 09/13/23 08:00 68 09/13/23 07:06 36.7 C 69 18 108/68 95 Room Air 09/13/23 03:52 36.5 C 69 18 103/60 95 Room Air (1) Fluid overload, unspecified Hypervolemia type: other Qualified Code(s): E87.79 - Other fluid overload
[2023-09-14 06:09] LABS: Hematocrit (blood only) 35.1 % (42.0-52.0); Hemoglobin 11.1 g/dl (14.0-18.0); Mean Corpuscular Hemoglobin 27.3 pg (25.0-34.0); Mean Corpuscular Hgb Conc 31.6 g/dL (32.0-36.0); Mean Corpuscular Volume 86.5 fL (80.0-100.0); Mean Platelet Volume 10.1 fL (9.4-12.4); Platelet Count 186 K/uL (130-400); RDW Coefficient of Variation 15.9 % (11.5-14.5); RDW Standard Deviation 49.7 fL (36.4-46.3); Red Blood Count 4.06 M/uL (4.70-6.10); White Blood Count 5.05 K/ul (4.8-10.8)
[2023-09-14 06:23] LABS: BUN Creatinine Ratio 34.4 (10-20); Calcium 8.7 mg/dl (8.6-10.3); Est GFR (African American) 28.7 ml/min; Est GFR (Non-African American) 24.7 ml/min; Magnesium 2.4 mg/dl (1.7-2.4)
--- NOTE | 2023-09-14 09:35 | Communication Note ---
Date of Service: September 14, 2023 Patient to undergo paracentesis today with IR. Will await fluid studies before further weighing in, but it does appear that this patient's volume overload & ascites are multifactorial.
[2023-09-14 09:52] LABS: Albumin Peritoneal Fluid 2.7 gm/dl
[2023-09-14 09:57] LABS: Total Protein Peritoneal Fluid 4.8 gm/dl
[2023-09-14 10:10] LABS: Appearance Peritoneal Fluid Clear; Color Peritoneal Fluid Yellow; Lymphocytes, Fluid 20 %; Mono,Macrophage,Mesothelial 73 %; Neutrophils, Fluid 7 %; RBC Peritoneal Fluid Auto < 2000 /uL; WBC Peritoneal Fluid Auto 332 /ul (0-300)
[2023-09-14 10:32] LABS: Appearance Urine Clear (Clear); Bacteria Urine Automated None Seen (None Seen); Bilirubin Urine Negative (Negative); Blood Urine Trace (Negative); Color Urine Yellow; Epithelial Cell Urine Auto 0-2 /hpf (0-2); Glucose Urine UA Negative (Negative); Ketones Urine Negative (Negative); Leukocyte Esterase Urine Negative (Negative); Nitrite Urine Negative (Negative); Protein Urine Negative (Negative); RBC Urine Automated 0-2 /hpf (0-2); Specific Gravity Urine 1.009 (1.000-1.030); Urobilinogen Urine Negative (Negative); WBC Urine Automated 0-5 /hpf (0-5)
--- NOTE | 2023-09-14 11:42 | Nephrology Progress Note ---
Date of Service September 14, 2023 Assessment & Plan (1) Xutas-dd-rkuyuuw kidney injury: Plan: stage 1 nonoliguric USMAN on CKD3. baseline creatinine 1.5; presenting creatinine 2.2, w/ some uptick since admission. presented w/ massive volume OL including 50 lb wt gain and w/ hypotension. 500 mg proteinuria; Urine sediment bland > no nephritic or nephrotic syndrome. st weight 09/11 127.8; on 09/12 126.9. 09/13 125.8 minimal diuresis to date >> about 600 mL negative so far on admission even though he's lasix naive For OP GI w/u and mgt of liver cirrhosis; for possible paracentesis IR on 09/13; cardiology does not believe this is active cardiac issue; LV function actually better than prior -will hold next 2 doses of lasix 40 mg IV dosed to not disrupt sleep tid > then resume in AM 09/14; likely needs higher dose -recommend primary service give albumin periprocedural w/ paracentesis > will d/w hospitalist >standing weight appreciated and needs to happen DAILY >cont <2 gm daily Na diet and 1.5L FR -low threshold to start miguelina receptor antagonist complex patient w/ high risk for morbidity/mortality related to management of renal dysfunction, volume overload. ------ informed after I saw pt that he plans to leave AMA if that happens, recommend -daily standing weight with log -serial OP paracentesis w/ albumin per GI or PCP or other provider -bmp before PCP visit -1.5 L daily FR and <2 gm daily Na diet -hospital d/c visit w/ me in 2 wks w/ renal nurse to order bmp, ACR, PTH, 25 OHD , uacm to be done 2-3 days before OV Care coordinated w/ Dr Nj and floor RN regarding d/c dispo, medication and lab recommnedations. Admission and Anticipated Discharge Date Admission Date: September 11, 2023 Subjective had 5L paracentesis this am; ? for more/further tap later this week renal function a bit worse today. he denies sob, worse edema. n/v, uncontrolled pain, f/c, voidign concerns Review of Systems 2 Review of Systems: All systems reviewed & are unremarkable except as noted in Subjective Physical Exam 2 Constitutional: well developed and well nourished; no acute distress (sitting up in chair on RA) Eyes: EOM intact bilaterally ENMT: Ears: no external ear abnormality Nose: no external nose abnormality Mouth: + dry oral mucous membranes Neck: no nuchal rigidity Respiratory: normal respiratory effort Auscultation: + diminished lung sounds (markedly); no crackles and no wheezes Cardiovascular: Rate/Rhythm: regular rate and regular rhythm Extremities: + edema (3+ indurated) Gastrointestinal (Abdomen): Inspection/Auscultation: + abdomen distended and normal bowel sounds Percussion/Palpation: abdomen soft, + ascites and + dullness to percussion; abdomen nontender Musculoskeletal: Extremities: strength 5/5 throughout Skin: no rashes, warm and dry (some broken skin/ skin breakdown BL pretibial) Results & Data Vital Signs (Past 12 Hours) Vital Signs Temp Pulse Pulse Resp BP BP Pulse Ox 09/14/23 11:31 36.4 C L 55 L 18 104/64 94 09/14/23 11:10 58 L 18 96/61 L 96 09/14/23 10:40 59 L 20 106/66 94 09/14/23 10:10 36.6 C 64 18 106/62 96 09/14/23 09:55 70 20 115/68 96 09/14/23 09:54 68 18 113/70 95 09/14/23 09:09 36.7 C 70 20 111/65 92 09/14/23 08:34 63 09/14/23 07:30 09/14/23 07:07 36.6 C 67 18 137/82 95 09/14/23 02:37 36.5 C 69 18 114/67 93 09/13/23 23:46 36.7 C 86 18 109/74 94 O2 Del Method 09/14/23 11:31 Room Air 09/14/23 11:10 Room Air 09/14/23 10:40 Room Air 09/14/23 10:10 Room Air 09/14/23 09:55 Room Air 09/14/23 09:54 Room Air 09/14/23 09:09 Room Air 09/14/23 08:34 09/14/23 07:30 Room Air 09/14/23 07:07 Room Air 09/14/23 02:37 Room Air 09/13/23 23:46 Room Air Laboratory Results 09/14/23 05:41 09/14/23 05:41 (1) Drcnz-bb-fxclfly kidney injury Acute renal failure type: unspecified
[2023-09-14] MEDS: ALBUMIN 25% 25 GM/100 ML VIAL IV ONE (11:58)
--- NOTE | 2023-09-14 14:07 | Ultrasound Report ---
ULTRASOUND-GUIDED PARACENTESIS CLINICAL HISTORY: Ascites PROCEDURE: Procedure and risks were explained. Informed consent was obtained. A final timeout was com pleted. The abdomen was prepped and draped in sterile fashion. 1% lidocaine was utilized for skin ane sthesia. Utilizing ultrasound guidance, a 5 Thai safety centesis catheter was advanced into the right lower quadrant pocket of ascites. Ultrasound images were obtained. A total of 5 L of ascites fluid was cuong phil with 1 L sent to the lab for analysis. The catheter was removed and Band-Aid applied. The patient tolerated the procedure well. Vital signs will be monitored postprocedure. IMPRESSION: Ultrasound-guided paracentesis as above. Performed, dictated, and signed by Omar Goodwin PA-C; to be co-signed by Dr. Chris Falcon. Electronically signed by: Chris Falcon M.D. 09/14/2023 2:24 PM
--- NOTE | 2023-09-14 15:10 | Discharge Summary ---
Date of Service September 14, 2023 Admission HPI Per Admitting Provider 73-year-old gentleman with history of CAD, status post stent placement, diabetes type 2, hypertension, CKD stage III, obesity, presenting with progressive weight gain and leg edema times few months. Patient reports around 50 pound weight gain in the past 3 months, associated with abdominal distention and leg swelling. No chest pain, shortness of breath, fevers or chills. He saw his primary care physician today for above symptoms. Creatinine was found to have increased from baseline of 1.7, currently 2.2. He was directed to the emergency room for further evaluation management. At the ER, patient received with stable vital signs overall. BNP [address] abdomen and pelvis showing large volume ascites, with liver cirrhosis On exam, patient seen resting in bed, comfortable, sitting up, on room air, not in distress. Denies active chest pain, shortness of breath, palpitations, dizziness. No other new symptom Principal Diagnosis Volume overload Ascites Discharge Exam General- oriented x 3, not in distress, speaks in sentences with no effort or accessory muscle use Eyes- anicteric Neck- no JVD Lungs- clear breath sounds bilaterally, no rales/wheezes Heart- normal rate, regular rhythm; no murmurs Abdomen- normal bowel sounds, Distended, tense ascites, nontender Extremities- Grade 2 lower extremity edema with mild erythema but no warmth, right great toes w/ infected wound. Neuro- alert, oriented x 3; no gross focal neurologic deficits Skin- warm & dry Discharge Data Allergies Allergy/AdvReac Type Severity Reaction Status Date / Time No Known Allergies Allergy Unverified 09/11/23 13:13 Consultations 09/11/23 13:01 ED Decision to Admit Stat 09/11/23 13:02 Consult Cardiology Routine Consult Gastroenterology Routine Consult Nephrology Routine Ordered Studies 09/11/23 10:59 CT abd pelvis wo con Stat 09/14/23 08:00 IR paracentesis abd w/img US Stat Hospital Course (1) Fluid overload, unspecified: 73-year-old gentleman with history of CAD, status post stent placement, diabetes type 2, hypertension, CKD stage III, obesity, presenting with progressive weight gain and leg edema x few months. He is being managed for the following: Volume overload, ascites, lower extremity edema likely multifactorial Acute on chronic CHF with reduced ejection fraction Patient presented with progressive volume overload, abdominal distention, occasional short of breath Last echo showing EF of 40%, right ventricular systolic dysfunction Echo this admission showing EF of 50 to 55%. Nephrology evaluated, f/u nephro on DC. Low-sodium diet, fluid restriction of 1.5 L a day. Limit APAP to less than 2 g a day. Cardiology on board, metoprolol at reduced dose, appreciate recommendation. Currently losartan on hold due to low normal blood pressure. Liver cirrhosis Seen on CT abdomen and pelvis, new diagnosis. LFTs okay GI evaluated, follow-up hepatology as an outpatient. s/p paracentesis 5L out 09/13. Acute kidney injury on CKD stage III: baseline Cr about 1.5 to 2.0 w/ gradual progressive renal disease. Pt insists he wants to go home, pt aware to hold metformin and losartan, get evaled by PCP in a week and nephro in 2 weeks. He is aware of importance of close monitoring by PCP and Nephrology and confirms he will follow with them closely upon discharge. Right toe infection: erythema and pus noted. Wound and bl Cx. WOCN consult. liv 09/11. Follow cultures. to po antibiotic on dc. pt advised to f/u w/ PCP in 3 days time to follow up on the final results of culture. Sinus bradycardia: Heart rate 50s, Metoprolol dose decreased from 100 mg daily to 25 mg twice daily. Continue telemetry monitoring. History of CAD, status post stent placement Hypertension Continue aspirin Resume other cardiac medications as able. DVT prophylaxis: Heparin subcu CODE STATUS full code Patient is being discharged to home with following instruction at the point of discharge: Follow-up with your primary care physician within a week time and likely you will need labs CBC/CMP/magnesium/phosphorus. You were admitted for volume overload secondary to ascites on the background of worsening renal function. You underwent paracentesis, 5 L of fluid taken out. Nephrology evaluated you. You will need to follow-up with nephrology in 2 weeks time. Following tests will again needs to be ordered by your nephrology office 2-3 days prior to your visit to nephrology clinic: BMP, ACR, PTH, 25 OHD, UA CM. Coordinate w/ your nephrology office to set up the test. For your right toe infection, your culture results are yet to be finalized. You will be discharged on antibiotic. Follow-up with your PCP office in about 3 days on the final results of the culture to determine the appropriateness of your antibiotic. You were also diagnosed with liver cirrhosis, you will need to follow-up with GI doctor. Coordinate with your PCP office to set up the referral. You will also need serial paracentesis, coordinate with your PCP office to set up the procedure. Your heart rate were noted to be on the lower side, your metoprolol dose has been decreased to 25 mg twice daily. Recommend you maintain your daily standing weight log, 1.5 L fluid restriction per day, low-sodium intake of less than 2 g/day. Because of your progressive renal disease, your metformin and losartan will be on hold until further evaluation by your PCP office within a week time. Since you did not need any insulin while in the hospital, you will not be discharged on substitute insulin though metformin is on hold. But I recommend that you continue to check your fingerstick glucose regularly, if it is consistently above 180s, coordinate with your diabetic clinic for further recommendation. Take your medications as prescribed. Please make sure that you are able to get your medications today by calling your pharmacy before you leave the hospital so that your treatment continuity is not broken. Home Health Attestation I certify that this patient is under my care and that I, or a physicians assistant printer floor covering working with me, had a face to-face encounter that meets the home health [id number] encounter requirements with this patient. The encounter with the patient was in whole, or in part, for the following medical condition, which is the primary reason for home health care (list medical condition): I certify that, based on my findings, the following services are medically necessary home health services: My clinical findings support the need for the above services because: Further, I certify that my clinical findings support that this patient is homebound (i.e. absences from home require considerable and taxing effort and are for medical reasons or confucianist services or infrequently or of short duration when for other reasons) because: Certification for Home Health Services: Based on the above findings, I certify that this patient is confined to the home and needs intermittent nursing home care, physical therapy and/or speech therapy or continues to need occupational therapy. The patient is under my care, and I have initiated the establishment of the plan of care. This patient will be followed by a physician who will periodically review the plan of care. Total Time Total Time Spent Total Time Spent (In Minutes): 45 Discharge Plan Discharge Items Patient Disposition: Home - Self-Care Reason For Visit: CHF EXACERBATION Discharge Diagnosis: Volume overload, ascites, lower extremity edema likely multifactorial Acute on chronic CHF with reduced ejection fraction Liver cirrhosis Acute kidney injury over CKD stage III Activity: Resume your previous activity Non-emergency contact: Primary Care Provider Call non-emergency contact if: you have any medication questions and your symptoms worsen Follow-up/Referrals: Dunia Smalls MD [Primary Care Provider] - (Date & Time 09/22/2023 9:40 AM Provider Dunia Smalls MD Department Family Medicine [facility] ) Diet: Carb Consistent or DM2 and Heart Healthy Addtl Attending Provider Instructions: Follow-up with your primary care physician within a week time and likely you will need labs CBC/CMP/magnesium/phosphorus. You were admitted for volume overload secondary to ascites on the background of worsening renal function. You underwent paracentesis, 5 L of fluid taken out. Nephrology evaluated you. You will need to follow-up with nephrology in 2 weeks time. Following tests will again needs to be ordered by your nephrology office 2-3 days prior to your visit to nephrology clinic: BMP, ACR, PTH, 25 OHD, UA CM. Coordinate w/ your nephrology office to set up the test. For your right toe infection, your culture results are yet to be finalized. You will be discharged on antibiotic. Follow-up with your PCP office in about 3 days on the final results of the culture to determine the appropriateness of your antibiotic. You were also diagnosed with liver cirrhosis, you will need to follow-up with GI doctor. Coordinate with your PCP office to set up the referral. You will also need serial paracentesis, coordinate with your PCP office to set up the procedure. Your heart rate were noted to be on the lower side, your metoprolol dose has been decreased to 25 mg twice daily. Recommend you maintain your daily standing weight log, 1.5 L fluid restriction per day, low-sodium intake of less than 2 g/day. Because of your progressive renal disease, your metformin and losartan will be on hold until further evaluation by your PCP office within a week time. Since you did not need any insulin while in the hospital, you will not be discharged on substitute insulin though metformin is on hold. But I recommend that you continue to check your fingerstick glucose regularly, if it is consistently above 180s, coordinate with your diabetic clinic for further recommendation. Take your medications as prescribed. Please make sure that you are able to get your medications today by calling your pharmacy before you leave the hospital so that your treatment continuity is not broken. Pending Studies at Discharge: Yes Stand-Alone Forms: My [facility], Smoking Cessation Medications and DC Order Prescriptions: New metoprolol tartrate 25 mg Tablet 25 mg PO BID Qty: 60 0RF cephalexin 500 mg tablet 500 mg PO Q8H 8 Days Qty: 24 0RF Probiotic 3 billion cell capsule 3,000 mmu cells PO DAILY 14 Days Qty: 14 0RF Rx Instructions: administer with a meal Continued multivit with min-folic acid [Multivitamin Gummies] 200 mcg Tablet,Chewable 2 tab PO QAM Qty: 0 aspirin 81 mg Tablet,Delayed Release (Dr/Ec) 81 mg PO QAM Qty: 30 0RF furosemide 40 mg tablet 40 mg PO QAM Held metformin 500 mg tablet 500 mg PO QAM Hold Instructions: Resume on 09/21/23. Hold until further evaluation by PCP office within a week time. losartan 50 mg tablet 50 mg PO QAM Hold Instructions: Resume on 09/21/23. Hold until further evaluation by PCP office within a week time. Discontinued metoprolol succinate 100 mg tablet extended release 24 hr 100 mg PO QAM Discharge Orders: Discharge Order (Routine); Ordered 09/14/23 Ordered By: Freeman Nj Admission Data Admit Date/Time: 09/11/23 12:46 Attending Provider: Freeman Nj Admit Provider: Aleksey Arreola Primary Care Provider: Dunia Smalls Other Providers: Aleksey Arreola; Remigio Singer; Jonathon Stafford; Michele Curry
--- NOTE | 2023-09-14 15:14 | Cardiology Progress Note ---
Date of Service September 14, 2023 Assessment & Plan (1) Cirrhosis: (2) Ascites: (3) Ischemic cardiomyopathy: (4) [id number] kidney injury: Plan 73 year old male admitted with volume overload appearing to be multifactorial in etiology (cirrhosis, renal dysfunction, right heart failure). Large volume ascites noted, status post paracentesis earlier today with symptomatic improvement. Patient with a history of ischemic cardiomyopathy, May 2021 inferolateral STEMI - acute subtotal occlusion of the mid RCA status post PCI of the mid to distal RCA with a single drug eluting stent on 05/28/2021. Catheterization at that time with severe non-culprit coronary artery disease (80% diffuse proximal to mid LAD disease, small distal LAD with 90% stenosis at apex, small OM2 with 70% proximal stenosis, small to medium OM3 with 95% proximal stenosis, and a R- PLB2 with 80% proximal stenosis) status post 05/31/2021 PCI of the proximal to mid LAD with a single drug eluting stent. Resting echocardiography this admission reveals normalization of EF, previously 40%, now 50-55%. + Moderate anterior and anteroseptal hypokinesis Diuretics principally managed by Nephrology, creatinine 2.5 mg/dL this AM. Consider Torsemide over furosemide for this patient. Sodium and fluid re strictions reviewed. Losartan held appropriately due to hypotension. Beta-rodriguez dosing decreased this admission. Recommend switching Lopressor to metoprolol succinate at 50 mg once a day (patient has metoprolol succinate 100 mg tablets at home) Continue ASA, managing underlying CAD medically as patient is asymptomatic in regarding to angina and has significant renal dysfunction at present. I spent a total of 36 minutes on the date of service in preparation, delivery, and documentation of the care provided to this patient excluding any time spent in the performance of separately billed services. This visit was a split-shared visit with the substantive portion of the medical decision making performed by the supervising press smith helper/billing provider. Admission and Anticipated Discharge Date Admission Date: September 11, 2023 Supervising Physician Co-Signing Physician Notes Case reviewed with Claudy Adorno PA-C. Agree with findings and plan as outlined. Patient discharged prior to in having the opportunity to examine him in person. Fredy Russell DO 4:55 pm. Subjective Patient seen and examined. Chart, medications, and telemetry reviewed. at bedside. Status post paracentesis earlier today, 5 L No chest pain, palpitations, or unusual shortness of breath. No fevers or chills. Telemetry: Sinus ranging from the 50's to the 80's over the last 24 hours. Review of Systems Review of Systems: Complete Review of Systems is as stated above, negative, or noncontributory. Physical Exam Physical Exam: General: A&Ox3. NAD. HENT: Normocephalic. Atraumatic. Eyes: PER. Sclera icterus Neck: No JVD. Heart: RRR. No murmur. Lungs: Absent breath sounds at the bases. Clear to auscultation. No wheeze. Abdomen: Firm. Distended. +BS. No organomegaly appreciated Extremities: 1-2+ chronic indurated peripheral edema. Limited neurological examination is without focal deficits. Pulses: Posterior tibial=0/4. Results & Data Vital Signs (Past 12 Hours) Vital Signs Temp Pulse Pulse Resp BP BP Pulse Ox 09/14/23 14:36 36.5 C 60 19 110/66 96 09/14/23 11:31 36.4 C L 55 L 18 104/64 94 09/14/23 11:10 58 L 18 96/61 L 96 09/14/23 10:40 59 L 20 106/66 94 09/14/23 10:10 36.6 C 64 18 106/62 96 09/14/23 09:55 70 20 115/68 96 09/14/23 09:54 68 18 113/70 95 09/14/23 09:09 36.7 C 70 20 111/65 92 09/14/23 08:34 63 09/14/23 07:30 09/14/23 07:07 36.6 C 67 18 137/82 95 O2 Del Method 09/14/23 14:36 Room Air 09/14/23 11:31 Room Air 09/14/23 11:10 Room Air 09/14/23 10:40 Room Air 09/14/23 10:10 Room Air 09/14/23 09:55 Room Air 09/14/23 09:54 Room Air 09/14/23 09:09 Room Air 09/14/23 08:34 09/14/23 07:30 Room Air 09/14/23 07:07 Room Air Laboratory Results CBC 09/14/23 Range/Units 05:41 WBC 5.05 (4.8-10.8) K/ul RBC 4.06 L (4.70-6.10) M/uL Hgb 11.1 L (14.0-18.0) g/dl Hct 35.1 L (42.0-52.0) % Plt Count 186 (130-400) K/uL Comprehensive Metabolic Panel 09/14/23 Range/Units 05:41 Sodium 140 (136-145) mmol/L Potassium 5.0 (3.5-5.1) mmol/L Chloride 111 H (98-107) mmol/L Carbon Dioxide 22 (21-32) mmol/L BUN 86 H (6-23) mg/dl Creatinine 2.50 H (0.6-1.4) mg/dl Glucose 89 (70-99(Fasting)) mg/dl Calcium 8.7 (8.6-10.3) mg/dl Intake and Output 09/14/23 09/14/23 09/14/23 06:59 14:59 22:59 Intake Total 125 / 1025 680 / 680 Output Total 200 / 1201 1302 / 1302 Balance -75 / -176 -622 / -622 Intake: IV 100 / 100 Albumin 25% 25 gm In 100 ml @ 100 / 100 50 mls/hr IV ONE ONE Rx#: [id number] Oral 125 / 775 580 / 580 Output: Urine 200 / 1200 1300 / 1300 # Bowel Movements 2 / 2 Other: Other Intake Source npo Weight 125.8 kg Weight Measurement Method Standing Scale Diagnostic Findings TTE on 09/11/2023: Mild aortic valve sclerosis without significant aortic valvular stenossi. Normal size LV. Normal LV wall thickness. Moderate anterior and anteroseptal hypokinesis. EF 50-55%. Moderately dilated LA. Mild to moderate mitral regurgitation. (4) [id number]-[id number] kidney injury Acute renal failure type: unspecified
== END 2023-09-14 15:53 | disposition home or self-care (01) | DRG 291 ==
LOC: ED 10:23 → SUATTDRO 12:46 → 4W 12:46